=== PATIENT | male | born 1945 | race Caucasian/White ===

== ENCOUNTER → 2017-03-13 09:08 | Outpatient (CLI) | payer MEDICARE, BC ==
[2012-11-15 13:58] VITALS: BMI 32.4
[~2017-03-13 09:08] MED LIST: BAYER CHEWABLE81 MG PO; BUMEX2 MG PO; CELEXA20 MG PO; K-TAB10 MEQ PO; PLAVIX75 MG PO; ULTRAM50 MG PO
== END | disposition home or self-care (01) ==
LOC: D.CT 09:08
DX: I71.4 Abdominal aortic aneurysm, without rupture (principal)

== ENCOUNTER → 2017-04-27 11:01 | Outpatient (CLI) | payer MEDICARE, BC ==
[2012-11-15 13:58] VITALS: BMI 32.4
== END | disposition home or self-care (01) ==
LOC: D.CT 11:01
DX: R31.9 Hematuria, unspecified (principal)

== ENCOUNTER 2017-09-24 18:57 | Emergency (ER) | payer MEDICARE ==
[2012-11-15 13:58] VITALS: BMI 32.4
[2017-09-24 19:28] LABS: BASOPHILS 0.3 % (0-2); EOSINOPHILS 0.8 % (0-7); HEMATOCRIT 46.3 % (42.0-54.0); HEMOGLOBIN 15.7 g/dL (13.5-17.5); IMMATURE GRANULOCYTES 0.7 % (0-5); LYMPHOCYTES 16.7 % (15-50); MCH 30.3 pg (26.0-34.0); MCHC 33.9 g/dL (31.0-37.0); MCV 89.2 fL (80.0-100.0); MEAN PLATELET VOLUME 10.1 fL (7.4-10.4); MONOCYTES 11.6 % (2-11); NEUTROPHILS 69.9 % (40-80); RBC 5.19 10x6/uL (4.20-6.10); RDW 12.8 % (11.5-14.5); WBC 9.9 10x3/uL (4.8-10.8)
[2017-09-24 19:29] LABS: PLATELET COUNT 243 10x3/uL (130-400)
[2017-09-24 19:44] LABS: ALBUMIN 3.6 g/dL (3.4-5.0); ANION GAP 15.2 mmol/L (8-16); BILIRUBIN - TOTAL 0.26 mg/dL (0.2-1.3); CALCIUM 9.4 mg/dL (8.5-10.1); CARBON DIOXIDE 27.8 mmol/L (21.0-32.0); CREATININE - SERUM 1.3 mg/dL (0.6-1.3); PROTEIN - SERUM 7.8 g/dL (6.4-8.2)
== END 2017-09-24 20:54 | disposition home or self-care (01) ==
LOC: D.ER 18:57
PROVIDERS: Emergency Medicine
DX: R53.1 Weakness (principal); Z86.73 Personal history of transient ischemic attack (TIA), and cerebral infarction without residual deficits; I44.4 Left anterior fascicular block

== ENCOUNTER 2018-01-24 09:53 | Observation (INO) | payer MEDICARE, BC ==
[~2018-01-24] VITALS: Ht 182.9 cm; Wt 108.4 kg
[2018-01-24] VITALS (9 sets, daily range): BP systolic 104–156; BP diastolic 48–85; BMI 32.3
[2018-01-24 10:34] LABS: BASOPHILS 0.2 % (0-2); EOSINOPHILS 0.4 % (0-7); HEMATOCRIT 46.1 % (42.0-54.0); HEMOGLOBIN 15.6 g/dL (13.5-17.5); IMMATURE GRANULOCYTES 0.9 % (0-5); LYMPHOCYTES 14.5 % (15-50); MCH 29.8 pg (26.0-34.0); MCHC 33.8 g/dL (31.0-37.0); MEAN PLATELET VOLUME 10.2 fL (7.4-10.4); MONOCYTES 7.9 % (2-11); NEUTROPHILS 76.1 % (40-80); PLATELET COUNT 234 10x3/uL (130-400); RBC 5.24 10x6/uL (4.20-6.10); RDW 13.2 % (11.5-14.5); WBC 11.3 10x3/uL (4.8-10.8)
[2018-01-24 10:48] LABS: ALBUMIN 3.6 g/dL (3.4-5.0); ALKALINE PHOSPHATASE 112 U/L (46-116); ALT (SGPT) 23 U/L (10-68); BILIRUBIN - TOTAL 0.55 mg/dL (0.2-1.3); CALC OSMOLALITY 277 mosm/kg (275-300); CARBON DIOXIDE 25.6 mmol/L (21.0-32.0); CHLORIDE - SERUM 99 mmol/L (98-107); GLUCOSE 151 mg/dL (74-106); POTASSIUM - SERUM 3.7 mmol/L (3.5-5.1); PROTEIN - SERUM 7.9 g/dL (6.4-8.2); SODIUM 137 mmol/L (136-145); UREA NITROGEN 16 mg/dL (7-18); eGFR NON AFRICAN AMERICAN 78 mL/min (90-120)
[2018-01-24 11:01] LABS: AMYLASE - SERUM 54 U/L (25-115); CREATINE KINASE 60 UL (21-232); LIPASE 91 U/L (73-393); TROPONIN-I < 0.017 ng/mL (0.000-0.060)
[2018-01-25 04:00] VITALS: BP 113/61
[2018-01-25 06:15] LABS: BASOPHILS 0.1 % (0-2); EOSINOPHILS 0 % (0-7); HEMATOCRIT 42.2 % (42.0-54.0); HEMOGLOBIN 14.4 g/dL (13.5-17.5); IMMATURE GRANULOCYTES 0.3 % (0-5); LYMPHOCYTES 7.8 % (15-50); MCH 30.3 pg (26.0-34.0); MCHC 34.1 g/dL (31.0-37.0); MCV 88.7 fL (80.0-100.0); MEAN PLATELET VOLUME 10.3 fL (7.4-10.4); MONOCYTES 7.8 % (2-11); PLATELET COUNT 237 10x3/uL (130-400); RBC 4.76 10x6/uL (4.20-6.10); RDW 13.1 % (11.5-14.5); WBC 13.1 10x3/uL (4.8-10.8)
[2018-01-25 07:05] LABS: CALC OSMOLALITY 281 mosm/kg (275-300); CALCIUM 8.9 mg/dL (8.5-10.1); CARBON DIOXIDE 28.1 mmol/L (21.0-32.0); CHLORIDE - SERUM 103 mmol/L (98-107); CREATININE - SERUM 0.9 mg/dL (0.6-1.3); GLUCOSE 133 mg/dL (74-106); POTASSIUM - SERUM 3.8 mmol/L (3.5-5.1); SODIUM 140 mmol/L (136-145); UREA NITROGEN 14 mg/dL (7-18); eGFR NON AFRICAN AMERICAN 88 mL/min (90-120)
[2018-01-25 08:04] VITALS: BP 131/59
[2018-01-25 08:05] VITALS: BP 123/70; BP 130/73; BP 131/59
[2018-01-25 10:33] VITALS: Ht 182.9 cm; Wt 108.4 kg
[2018-01-25 17:13] VITALS: BP 124/55
[2018-01-25] MEDS ORDERED: ZOFRAN4 MG PO (17:34)
== END 2018-01-25 18:28 | disposition home or self-care (01) ==
LOC: D.ER 09:53 → D.M2 14:18 → OBSVTIME 14:18 → D.EDHOLD 14:18 → D.M2 20:45
PROVIDERS: Emergency Medicine; Family Medicine
DX: R00.1 Bradycardia, unspecified (principal); R11.2 Nausea with vomiting, unspecified; R53.1 Weakness

== ENCOUNTER → 2018-03-06 08:26 | Outpatient (CLI) | payer MEDICARE, BC ==
[2018-01-25 10:33] VITALS: BMI 32.4
[~2018-03-06 08:26] MED LIST changes: +ZOFRAN4 MG PO
== END | disposition home or self-care (01) ==
LOC: D.CT 08:26
DX: I71.4 Abdominal aortic aneurysm, without rupture (principal)

== ENCOUNTER → 2019-03-08 11:33 | Outpatient (CLI) | payer MEDICARE, BC ==
[2018-01-25 10:33] VITALS: BMI 32.4
== END ==
LOC: D.CT 11:33
PROVIDERS: ATTEND Internal Medicine Cardiovascular Disease
DX: I71.4 Abdominal aortic aneurysm, without rupture (principal)

== ENCOUNTER → 2019-03-19 08:44 | Outpatient (CLI) | payer MEDICARE, BC ==
[2018-01-25 10:33] VITALS: BMI 32.4
== END | disposition home or self-care (01) ==
LOC: D.CT 08:44
PROVIDERS: ATTEND Family Medicine
DX: R91.1 Solitary pulmonary nodule (principal)

== ENCOUNTER 2019-03-27 07:11 | Outpatient (CLI) | payer MEDICARE, BC ==
[~2019-03-27] VITALS: Ht 182.9 cm; Wt 112.7 kg
[2019-03-27 07:43] LABS: BASOPHILS 0.4 % (0-2); EOSINOPHILS 0.8 % (0-7); HEMOGLOBIN 14.5 g/dL (13.5-17.5); IMMATURE GRANULOCYTES 0.7 % (0-5); LYMPHOCYTES 15.7 % (15-50); MCH 28.9 pg (26.0-34.0); MCHC 32.2 g/dL (31.0-37.0); MCV 89.8 fL (80.0-100.0); MEAN PLATELET VOLUME 10.6 fL (7.4-10.4); MONOCYTES 12.7 % (2-11); NEUTROPHILS 69.7 % (40-80); PLATELET COUNT 265 10x3/uL (130-400); RBC 5.01 10x6/uL (4.20-6.10); RDW 13.8 % (11.5-14.5); WBC 9.6 10x3/uL (4.8-10.8)
[2019-03-27 07:45] LABS: APTT 29.8 SECONDS (22.8-39.4); CALC OSMOLALITY 280 mosm/kg (275-300); CARBON DIOXIDE 28.9 mmol/L (21.0-32.0); CHLORIDE - SERUM 104 mmol/L (98-107); GLUCOSE 99 mg/dL (74-106); INR 1.04 (0.85-1.17); POTASSIUM - SERUM 4.3 mmol/L (3.5-5.1); PROTIME 13.1 SECONDS (11.6-15.0); SODIUM 140 mmol/L (136-145); UREA NITROGEN 18 mg/dL (7-18); eGFR NON AFRICAN AMERICAN 77 mL/min (90-120)
[2019-03-27 08:12] VITALS: BP 152/85; Ht 182.9 cm; Wt 112.7 kg
--- NOTE | 2019-03-27 10:57 | NUR ---
1050 SEE POST PROCEDURE CHECKLIST FOR VITAL SIGN TRENDS. EXTRA BLANKET FOR WARMTH.
--- NOTE | 2019-03-27 11:09 | NUR ---
1105 AROUSED WITH V.S. CHECK AND WOUND CHECK. NO HEMATOMA
--- NOTE | 2019-03-27 15:08 | NUR ---
1250 ROUNDS BY TONG CHONG'S RELEASE WHEN TIME.
== END 2019-03-27 14:40 | disposition home or self-care (01) ==
LOC: D.CT 07:11
PROVIDERS: Radiology Diagnostic Radiology; ATTEND Internal Medicine Cardiovascular Disease
DX: R91.1 Solitary pulmonary nodule (principal)

== ENCOUNTER 2019-03-27 17:34 | Inpatient (IN) | payer MEDICARE, BC ==
[~2019-03-27] VITALS: Ht 182.9 cm; Wt 103.2 kg
--- NOTE | ~2019-03-27 | HEMODYNAMI ---
PATIENT:BRISEIDA NOGUEIRA MEDICAL RECORD: [id number] : 41 [facility] KyleFannieCV02 ADMISSION DATE: 03/27/19 Generatedon:04/01/201912:40 Patient name: BRISEIDA NOGUEIRA Patient #: [id number] : 1945 Date of study: 04/01/2019 Page: Of Hemodynamic Procedure Report Patient Data Patient Demographics Procedure consent was obtained First Name: BRISEIDA Gender: Male Last Name: MIRLANDE : 1945 Middle Initial: GORDON Age: 73 year(s) Patient #: [id number] Race: SSN: [id number] Additional ID: [id number] Contact details Address: [address] [place] [address] State: [place] City: [place] Zip code: [address] Past Medical History Allergies: No known allergies Admission Admission Data Admission Date: 03/27/2019 Admission Time: 21:23 Arrival Date: 03/27/2019 Arrival Time: 21:23 Admit Source: Emergency Insurance Payor: Medicare, department Private health insurance Room #: D.CV02 [facility] #: [id number] Height (in.): 72.05 BSA: 2.41 (m2) Height (cm.): 183 BMI: 36.13 (kg/m2) Weight (lbs.): 266.76 Weight (kg.): 121 Lab Results Lab Result Date: 04/01/2019 Lab Result Time: 0:00 Biochemistry Name Units Result Min Max BUN mg/dl 38 --(----)-* 7 18 Creatinine mg/dl 1.3 --(---*)-- 0.6 1.3 eGFR ml/min 57 *-(----)-- 90 120 NONAFRICAN CBC Name Units Result Min Max Hemoglobin g/dl 7.8 *-(----)-- 13.5 17.5 Procedure Procedure Types Cath Procedure Diagnostic Procedure [facility] w/Coronaries Sedation Charges Moderate Sedation up to 30 minutes PCI Procedure AMI/SVG/DISBURSING AGENT PTCA or Stent AMI-BMS/RICH Initial Procedure Description Procedure Date Procedure Date: 04/01/2019 Procedure Start Time: 12:08 Procedure End Time: 12:34 Procedure Staff Name Function Francisco Morrow MD Performing Physician Lorraine Maravilla RT Monitor Tracy Soto RT Scrub Meron Schmitt RN Nurse Procedure Data Cath Procedure Fluoroscopy Diagnostic fluoroscopy Total fluoroscopy Time: 0 time: 0 min min Diagnostic fluoroscopy Total fluoroscopy dose: dose: 2577 mGy 2577 mGy Contrast Material Contrast Material Type Amount (ml) Isovue 300 150 Entry Location Entry Primary Successful Side Size Upsize Upsize Entry Closure Wong ccessful Closure Location (Fr) 1 (Fr) 2 (Fr) Remarks Device Remarks Radial Right 6 Fr Mechanical artery Short Compression Estimated blood loss: 5 ml Diagnostic catheters Device Type Used For End Catheter Placement DIAGNOSTIC Kirkwood 110cm 5 Multi-vessel Fr catheter ([id number]) Angiography Procedure Complications No complications Procedure Medications Medication Administration Route Dosage Oxygen 100 Lidocaine 2% added to field 20 Heparin Flush Bag added to field 2 bags (1000units/500ml NS) 0.9% NaCl I.V. Diprivan 1% I.V. 20 mcg/kg/min (Propofol) Neosynephrine I.V. drip 0.3 mcg/kg/min (20mg/250ml D5W) unlisted medication I.V. drip 15 Heparin Bolus I.V. 4000 units Integrilin (Bolus I.V. 10.2 ml 2mg/ml) Plavix 600 mg Hemodynamics Rest BSA: 2.41 (m2) HGB: 7.8 (g/dl) O2 Consumption: Estimated: 285.64 (ml/min) O2 Con sumption indexed: Estimated:118.52 (ml/min/m) Heart Rate: 79 (bpm) Pressure Samples Time Site Value (mmHg) Purpose Heart Use Rate(bpm) 12:10 LV 86/26,47 Snapshot 87 Snapshots Pre Cath Intra NCS Post Cath Vital Signs Time Heart Resp SPO2 NIBP (mmHg) Rhythm Pain Sedation Rate (ipm) (%) Status Level (bpm) 11:58:38 86 23 99 114/77(105) NSR 0 (11) 3(A) , No pain 12:02:46 88 23 98 118/75(91) NSR 0 (11) 3(A) , No pain 12:07:00 83 22 97 115/68(89) NSR 0 (11) 3(A) , No pain 12:11:01 84 23 96 102/72(79) NSR 0 (11) 3(A) , No pain 12:15:07 82 24 96 118/69(85) NSR 0 (11) 3(A) , No pain 12:19:19 87 23 98 117/71(88) NSR 0 (11) 3(A) , No pain 12:23:27 89 21 98 124/83(100) NSR 0 (11) 3(A) , No pain 12:27:31 89 24 97 117/77(89) NSR 0 (11) 3(A) , No pain 12:31:37 91 24 97 125/89(106) NSR 0 (11) 3(A) , No pain Medications Time Medication Route Dose Verified Delivered Reason N otes Effectiveness by by 11:58:52 Oxygen vent 100% FiO2 Francisco Chance for low 02 sats Cristhian Schmitt RN 11:58:57 Lidocaine 2% added 20ml vial Francisco Singh for local to Cristhian Morrow MD anesthetic field 11:59:07 Heparin Flush added 2 bags Francisco Singh used for Bag to Cristhian Morrow MD procedure (1000units/500ml field NS) 11:59:24 Diprivan 1% I.V. 20 Francisco Meron for sedation i nfusing (Propofol) mcg/kg/min Cristhian Schmitt upon RN arrival to 11:59:24 0.9% NaCl I.V. kvo Francisco Glynna used for Cristhian Schmitt agricultural commodities grader 12:02:43 Neosynephrine I.V. 0.3 Francisco Meron Per physician i nfusing (20mg/250ml D5W) drip mcg/kg/min Cristhian Schmitt upon RN arrival to 12:03:19 Sodium phosphate I.V. 15 mmol Francisco Chance Per physician i nfusing drip Cristhian Schmitt upon RN arrival to 12:15:35 Heparin Bolus I.V. 4000 units Francisco Chance for v erified Cristhian Schmitt anticoagulation with Dr. ANABEL Morrow 12:15:50 Integrilin I.V. 10.2 ml Francisco stallings (Bolus 2mg/ml) Cristhian Schmitt antiplatelet RN therapy 12:16:04 Plavix NGT 600 mg Francisco Schmitt antiplatelet RN therapy Procedure Log Time Note 11:32:54 Meron Schmitt RN sent for patient. Start room use. 11:42:40 Diagnostic Cath Status : Elective 11:43:01 Time tracking: Regular hours (M-F 7:00 - 5:00) 11:43:07 Plan of Care:Hemodynamics will remain stable., Cardiac rhythm will remain stable., Comfort level will be maintained., Respiratory function will remain adequate., Patient/ family verbilizes understanding of procedure., Procedure tolerated without complication., Recovers from procedure without complications.. 11:47:22 Informed consent obtained and on chart 11:48:39 Admit Source: Emergency department 11:48:44 Arrival Date: 03/27/2019 9:23:00 PM 11:49:08 Insurance Payor : Private health insurance, Medicare 11:49:16 Patient Height : 72.05 inches 11:49:21 Patient Weight : 266.76 lbs 11:50:53 Lab Result : eGFR NONAFRICAN 57 ml/min 11:50:53 Lab Result : Hemoglobin 7.8 g/dl 11:50:53 Lab Result : BUN 38 mg/dl 11:50:53 Lab Result : Creatinine 1.3 mg/dl 11:51:03 Patient received from CVICU to [facility] 2 On ventilator. Tansferred to table in Supine position. 11:51:04 Warm blankets applied, and seema hugger turned on for patient comfort. 11:51:04 Correct patient and procedure confirmed by team. 11:51:05 ECG and BP/O2 sat monitors applied to patient. 11:56:32 Full Disclosure recording started 11:57:32 Vital chart was started 11:57:33 Baseline sample Acquired. 11:57:41 Rhythm: sinus rhythm 11:57:45 H&P Date Dictated: 04/01/2019 New H&P dictated by physician.. 11:57:46 Pre-procedure instructions explained to patient. 11:57:46 Pre-op teaching completed and patient verbalized understanding. 11:57:50 Family in waiting room. 11:57:52 Patient NPO since Midnight. 11:57:58 Patient allergic to No known allergies 11:58:32 PATIENT HAS NOT HAD PLAVIX SINCE THE 11:58:52 Oxygen 100% FiO2 vent was administered by Meron Schmitt RN; for low 02 sats; Verbal order read back and verified. 11:58:57 Lidocaine 2% 20ml vial added to field was administered by Francisco Morrow MD; for local anesthetic; Verbal order read back and verified. 11:59:02 Patient diabetic? No. 11:59:06 Previous problem with sedation/anesthesia? No ? 11:59:07 Heparin Flush Bag (1000units/500ml NS) 2 bags added to field was administered by Francisco Morrow MD; used for procedure; Verbal order read back and verified. 11:59:20 Snore? Unknown 11:59:21 Sleep apnea? Unknown 11:59:23 Deviated septum? Unknown 11:59:24 Diprivan 1% (Propofol) 20 mcg/kg/min I.V. was administered by Meron Schmitt RN; for sedation; infusing upon arrival to Verbal order read back and verified. 11:59:24 0.9% NaCl kvo I.V. was administered by Meron Schmitt RN; used for procedure; Verbal order read back and verified. 11:59:24 Opens mouth fully? Unknown 11:59:26 Sticks out tongue? Unknown 11:59:28 Airway obstruction? Unknown ? 11:59:33 Dentures? No ? 11:59:48 PT. INTUBATED. UNABLE TO ASK QUESTIONS 12:00:03 Modified Edu's test Ulnar < 7 seconds 12:00:12 Patient pain scale 0/10 ?. 12:00:25 IV patent on arrival in right IJ with 0.9% NaCl at [facility]. 12:00:27 Lab results completed and on chart. 12:00:33 Stress Test: no; N/A ? 12:00:40 Right Radial & Right Groin area was prepped with chlora-prep and draped in sterile fashion 12:00:41 Alarms reviewed by R. N. 12:00:42 Sharps counted by scrub and verified by R.N. 12:01:18 Risk of Mortality: 19 12:01:21 Risk of blood transfusion: 54.6 12:01:25 Risk of SAMI: 21 12:01:36 3a) 45-59 Moderately reduced kidney function. 12:01:55 Maximum allowable contrast dose (3.7 X eGFR X 0.75)158\ ml. 12:02:37 Physician arrived 12:02:37 --------ALL STOP TIME OUT------ 12:02:38 Final Timeout: patient, procedure, and site verified with staff and physician. All members of the team are in agreement. 12:02:40 Right Radial & Right Groin site verified by team. 12:02:43 Neosynephrine (20mg/250ml D5W) 0.3 mcg/kg/min I.V. drip was administered by Meron Schmitt RN; Per physician; infusing upon arrival to Verbal order read back and verified. 12:02:43 Fire Safety Assessment: A--An alcohol-based skin anteseptic being used preoperatively., C--Open oxygen or nitrous oxide is being used., D--An ESU, laser, or fiber-optic light is being used. 12:02:46 Physical assessment completed. ASA score P 2 - A patient with mild systemic disease as per Francisco Morrow MD. 12:02:50 Sedation plan: IV Moderate Sedation Medication:Versed, Fentanyl 12:03:19 Sodium phosphate 15 mmol I.V. drip was administered by Meron Schmitt RN; Per physician; infusing upon arrival to Verbal order read back and verified. 12:05:22 Use device set Radial Dx or PCI 12:05:24 ACIST Syringe (16306) opened to sterile field. 12:05:24 Medline Cath Pack ([id number]) opened to sterile field. 12:05:24 Bag Decanter (2002S) opened to sterile field. 12:05:25 ACIST Hand Control (66640) opened to sterile field. 12:05:26 ACIST Manifold (39687) opened to sterile field. 12:05:27 Tegaderm 4 x 4 (5886W) opened to sterile field. 12:05:28 EMERALD Guide Wire (778-617) opened to sterile field. 12:05:29 SHEATH 6FR RAIN (0434208) opened to sterile field. 12:05:38 Pt arrives to room #2 intubated and sedated via propofol drip. Pt unresponsive to stimuli. Multiple drips from CVICU infusing (see med list). VSS. 12:06:39 Procedure started. 12:08:42 Local anesthetic to right radial artery with Lidocaine 2% by Francisco Morrow MD.INITIAL ACCESS ONLY 12:09:22 A 6 Fr Short sheath was inserted into the Right Radial artery 12:09:43 A DIAGNOSTIC Kirkwood 110cm 5 Fr catheter (742335) was advanced over the wire and used for Multi-vessel Angiography. 12:10:18 Zero performed for pressure channel P1 12:10:56 LV hemodynamics recorded. 12:10:57 LV gram done using MANNING 12:11:05 Injector settings: Ml/sec: 5, Volume: 15, 12:11:13 EF : 30 % 12:11:33 LCA angiography performed. 12:11:37 Injector settings: Ml/sec: 3, Volume: 6, 12:12:23 GUIDE 6FR XBLAD 3.5 catheter ([id number]) opened to sterile field. 12:12:24 CHOICE PT Extra Support 182cm wire ([id number]) opened to sterile field. 12:12:26 INFLATOR Merit BasixCompak (FK5257) opened to sterile field. 12:12:39 Catheter removed. 12:13:32 GUIDE 6FR AR 2.0 catheter ([id number]) opened to sterile field. 12:15:23 ACCDominant side:Right 12:15:35 Heparin Bolus 4000 units I.V. was administered by Meron Schmitt RN; for anticoagulation; verified with Dr. Morrow Verbal order read back and verified. 12:15:46 6 Fr AR 2 guide catheter was inserted over the wire 12:15:50 Integrilin (Bolus 2mg/ml) 10.2 ml I.V. was administered by Meron Schmitt RN; for antiplatelet therapy; Verbal order read back and verified. 12:15:53 CHOICE PT wire advanced. 12:15:55 Wire advanced across lesion. 12:16:04 Plavix 600 mg NGT was administered by Meron Schmitt RN; for antiplatelet therapy; Verbal order read back and verified. 12:16:23 Pre PCI Site: [place] mRCA has 95% stenosis. 12:16:26 ACC Pre-intervention MARCELO Flow is 2. 12:16:39 Inflate balloon Inflation number: 1 A EUPHORA 3.5 x 30 Balloon ([id number]) was prepped and advanced across the Prox RCA 95, then inflated to 14 MARIELA for 0:10 (min:sec) 0. 12:16:57 Inflation number: 2 The EUPHORA 3.5 x 30 Balloon ([id number]) was reinflated across the Prox RCA 0, to 19 MARIELA for 0:10 (min:sec) . 12:18:56 Balloon removed over the wire. 12:19:42 Place stent Inflation Number: 1 A COBRA RX 3.5 X 18 Stent was prepped and advanced across the Mid RCA 95. The stent was deployed at 13 MARIELA for 0:10 (min:sec) 0. 12:20:25 Stent catheter was removed intact over wire. 12:20:33 Wire removed. 12:20:34 Guide catheter removed. 12:20:44 Post PCI Site: [place] mRCA has 0% stenosis. 12:20:54 Pre PCI Site: [place] pLAD has 95% stenosis. 12:20:54 6 Fr XBLAD 3.5 guide catheter was inserted over the wire 12:21:52 CHOICEPT wire advanced. 12:23:58 Place stent Inflation Number: 1 A COBRA RX 3.0 X 15 Stent was prepped and advanced across the Prox LAD 95. The stent was deployed at 13 MARIELA for 0:10 (min:sec) 0. 12:24:08 Inflation number: 2 The stent balloon was then re-inflated across the Prox LAD 0 to 19 MARIELA for 0:10 (min:sec) . 12:25:16 Stent catheter was removed intact over wire. 12:25:49 Place stent Inflation Number: 1 A COBRA RX 3.0 X 08 Stent was prepped and advanced across the Mid LAD 95. The stent was deployed at 13 MARIELA for 0:10 (min:sec) 0. 12:28:29 Wire redirected to LCX. 12:28:30 Pre PCI Site: [place] mCirc has 90% stenosis. 12:28:31 Inflation number: 1 The stent balloon was then re-inflated across the Mid CX 90 to 13 MARIELA for 0:10 (min:sec) 0. 12:28:35 Stent catheter was removed intact over wire. 12:29:03 Place stent Inflation Number: 2 A COBRA RX 2.5 X 18 Stent was prepped and advanced across the Mid CX 90. The stent was deployed at 15 MARIELA for 0:10 (min:sec) 0. 12::41 Stent catheter was removed intact over wire. 12::42 Wire removed. 12::42 Guide catheter removed. 12:29:53 ZEPHYR REGULAR TR BAND (832413) opened to sterile field. 12:30:05 Sheath removed intact; hemostasis achieved with Mechanical Compression to the Right Radial artery. 12:31:59 [place] band inflated with 8cc of air. 12:32:25 ACC Post-intervention MARCELO Flow is 3. 12:32:34 ACT drawn and resulted at 252 seconds. (normal therapeutic range 180-240 seconds). 12:32:35 Procedure ended.(Physican Out) 12:32:52 Fluoroscopy time 00.00 minutes. 12:32:56 Fluoroscopy dose: 2577 mGy 12:32:56 Flurop Dose total: 2577 12:33:05 Dose Area Product 055565 mGy/cm. 12:33:46 Contrast amount:Isovue 300 150ml. 12:33:51 Maximum allowable dose exceeded? Yes. 12:33:52 Sharps counted by scrub and verified by R.N. 12:33:54 Insertion/operative site no bleeding no hematoma. 12:33:59 Post right radial artery:stable 12:34:00 Post Procedure Pulses reassessed and unchanged 12:34:03 Post procedure rhythm: unchanged. 12:34:05 Estimated blood loss: 5 ml 12:34:07 Post procedure instruction explained to patient.Patient verbalizes understanding. 12:34:07 Patient needs reinforcement of post procedure teaching. 12:34:37 Procedure type changed to Cath procedure, Diagnostic procedure, LHC, [place] w/Coronaries, Sedation Charges, Moderate Sedation up to 30 minutes, PCI procedure, AMI/SVG/DISBURSING AGENT PTCA or Stent, AMI-BMS/RICH Initial 12:34:39 Procedure and supply charges have been captured, reviewed, submitted and are correct. 12:34:43 Procedure Complication : No complications 12:34:45 Vital chart was stopped 12:34:50 [place] Findings: MVD- PCI performed (see procedure note) 12:34:52 Operative report dictated upon procedure completion. 12:34:52 See physician's report for complete and final results. 12:34:55 Report given to CVICU. 12:34:57 Patient transfered to CVICU with Stretcher. 12:34:59 Procedure ended. 12:34:59 Full Disclosure recording stopped 12:35:08 ACC-PCI Only Patient was given prescriptions, or instructed by Francisco Morrow MD to start/continue the following medications upon discharge: Plavix 12:35:10 End room use (Document Last) Intervention Summary Intervention Notes Time ActionType Lesion and Equipment Action# Pressure Duration Attributes Used 12:16:39 Inflate Prox RCA EUPHORA 1 14 00:10 balloon 3.5 x 30 Balloon ([id number]) 12:16:57 Reinflate Prox RCA EUPHORA 2 19 00:10 balloon 3.5 x 30 Balloon ([id number]) 12:19:42 Place stent Mid RCA COBRA RX 1 13 00:10 3.5 X 18 Stent 12:23:58 Place stent Prox LAD COBRA RX 1 13 00:10 3.0 X 15 Stent 12:24:08 Reinflate Prox LAD COBRA RX 2 19 00:10 stent 3.0 X 15 balloon Stent 12:25:49 Place stent Mid LAD COBRA RX 1 13 00:10 3.0 X 08 Stent 12:28:31 Reinflate Mid CX COBRA RX 1 13 00:10 stent 3.0 X 08 balloon Stent 12:29:03 Place stent Mid CX COBRA RX 2 15 00:10 2.5 X 18 Stent Device Usage Item Name Manufacture Quantity Catalog Number Hospital Part Current Minimal Lot# / Charge Number Stock Stock Serial# Code ACIST Syringe Acist 1 13922 838786 347821 742693 20 (56197) Medical Systems Inc Medline Cath Medline 1 [id number] 024502 63238 361970 5 Pack ([id number]) Bag Decanter Microtek 1 2001S 273474 56957 341158 5 () Medical Inc. ACIST Hand Acist 1 66650 210104 450610 896962 5 Control Medical (92290) Systems Inc ACIST Manifold Acist 1 01052 984171 568102 688276 5 (27325) Medical Systems Inc Tegaderm 4 x 4 3M 1 1626W 606135 733974 198885 5 (1626W) EMERALD Guide Cardinal 1 502-721 603265 797653 290982 5 Wire (105-097) Health SHEATH 6FR Cardinal 1 9179172 890460 1760141 316370 5 RAIN (8895174) Health DIAGNOSTIC Terumo 1 84-3775 950114 467452 619786 5 Kirkwood 110cm 5 Fr catheter (122674) GUIDE 6FR Cardinal 1 [id number] 230653 978903 815451 10 XBLAD 3.5 Health catheter ([id number]) CHOICE PT Sanders 1 [id number] 052534 210709 189999 5 Extra Support Scientific 182cm wire ([id number]) INFLATOR Merit Merit 1 ES0586 894179 591869 639992 15 Crayon Data Medical (HR6164) GUIDE 6FR AR Medtronic 1 [id number] 191044 45513 180717 1 2.0 catheter ([id number]) EUPHORA 3.5 x Medtronic 1 [id number] 851743 322086 219482 5 [id number] 30 Balloon ([id number]) COBRA RX 3.5 X Celonova 1 370-56-33149 233525 [id number] 6923527 4 9 [id number] 18 stent Biosciences ([id number]) COBRA RX 3.0 X Celonova 1 647-12-86683 092756 820862828 227356 6 [id number] 15 stent Biosciences (283-31-20703) COBRA RX 3.0 X Celonova 1 978-29-75481 730763 423863963 5820726 7 [id number] 08 stent Biosciences ([id number]) COBRA RX 2.5 X Celonova 1 749-23-66334 080823 490071674 3791394 7 0 [id number] 18 stent Biosciences (630-86-94217) ZEPHYR REGULAR Cardinal 1 862086 739348 1839596 375891 5 [facility] Jawbone (832722) Signature Audit [place] Stage Time Signature Unsigned Intra-Procedure 04/01/2019 Lorraine Maravilla 12:37:09 PM RT(R) Intra-Procedure 04/01/2019 Meron Schmitt 12:37:30 PM RN Intra-Procedure 04/01/2019 Francisco Morrow 12:40:04 PM Signatures Performing Physician : Signature : Francisco Morrow MD Date : Time : Monitor : Lorriane Taiwo RT Signature : Date : Time : Nurse : Meron Oskar RN Signature : Date : Time : [address] [place] [address]
[2019-03-27 18:06] LABS: BASOPHILS 0.2 % (0-2); EOSINOPHILS 0.4 % (0-7); HEMATOCRIT 38.7 % (42.0-54.0); HEMOGLOBIN 12.4 g/dL (13.5-17.5); IMMATURE GRANULOCYTES 0.5 % (0-5); LYMPHOCYTES 15.1 % (15-50); MCH 28.8 pg (26.0-34.0); MCV 89.8 fL (80.0-100.0); MEAN PLATELET VOLUME 10.3 fL (7.4-10.4); MONOCYTES 8.8 % (2-11); PLATELET COUNT 234 10x3/uL (130-400); RBC 4.31 10x6/uL (4.20-6.10); RDW 13.5 % (11.5-14.5)
[2019-03-27 18:07] LABS: WBC 13.3 10x3/uL (4.8-10.8)
[2019-03-27 18:15] LABS: APTT 26.4 SECONDS (22.8-39.4); INR 1.15 (0.85-1.17); PROTIME 14.2 SECONDS (11.6-15.0)
[2019-03-27 18:17] LABS: CALC OSMOLALITY 281 mosm/kg (275-300); CALCIUM 8.6 mg/dL (8.5-10.1); CHLORIDE - SERUM 105 mmol/L (98-107); CREATININE - SERUM 1.1 mg/dL (0.6-1.3); GLUCOSE 122 mg/dL (74-106); SODIUM 139 mmol/L (136-145); UREA NITROGEN 22 mg/dL (7-18); eGFR NON AFRICAN AMERICAN 69 mL/min (90-120)
[2019-03-27 18:32] LABS: ALBUMIN 2.9 g/dL (3.4-5.0); ALKALINE PHOSPHATASE 97 U/L (46-116); ALT (SGPT) 20 U/L (10-68); BILIRUBIN - TOTAL 0.45 mg/dL (0.2-1.3); CKMB 0.5 U/L (0.0-3.6); CREATINE KINASE 48 UL (21-232); PRO BNP 1098 pg/mL (0-450); PROTEIN - SERUM 6.7 g/dL (6.4-8.2)
[2019-03-27 18:47] LABS: TROPONIN-I < 0.017 ng/mL (0.000-0.060)
--- NOTE | 2019-03-27 20:09 | NUR ---
PT TO RADIOLOGY FOR CT
[2019-03-27 22:22] VITALS: BP 118/58
--- NOTE | 2019-03-27 23:26 | NUR ---
PATIENT ARRIVED TO ROOM 2104 @2300. PATIENT AAOX4, TRANSFERED WITH MINIMAL ASSIST TO BED FROM STRETCHER. PT HAS PIV TO LT AC WITH NS INFUSING @50ML/HR. IV PATENT, DRSG C/D/I. PT VSS, NO S/S OF DISTRESS OBSERVED, RR EVEN AND UNLABORED ON ROOM AIR. MED REC, QUICK START, SUICIDE SCREENING, ADULT HX COMPLETED. CL IN REACH, BED LOCKED AND LOWERED.
--- NOTE | 2019-03-27 23:41 | NUR ---
PATIENT HAD BIOPSY TO HIS RIGHT LUNG EARLIER TODAY. DRSG OVER INCISION SITE IS C/D/I.
[2019-03-28] VITALS (16 sets, daily range): BP systolic 106–138; BP diastolic 40–75; BMI 26.6
--- NOTE | 2019-03-28 | NUR ---
NO TELEMETRY'S AVAILABLE.
--- NOTE | 2019-03-28 01:15 | NUR ---
PATIENT O2 SAT 92% CALLED RESPIRATORY FOR TREATMENT. RESPIRATORY AT BEDSIDE NOW.
[2019-03-28 05:54] LABS: BASOPHILS 0.2 % (0-2); EOSINOPHILS 0.3 % (0-7); HEMATOCRIT 34.5 % (42.0-54.0); IMMATURE GRANULOCYTES 0.6 % (0-5); LYMPHOCYTES 13.6 % (15-50); MCH 28.5 pg (26.0-34.0); MCHC 31.9 g/dL (31.0-37.0); MCV 89.4 fL (80.0-100.0); MEAN PLATELET VOLUME 10.4 fL (7.4-10.4); MONOCYTES 13.6 % (2-11); NEUTROPHILS 71.7 % (40-80); PLATELET COUNT 213 10x3/uL (130-400); RBC 3.86 10x6/uL (4.20-6.10); RDW 13.7 % (11.5-14.5); WBC 10.9 10x3/uL (4.8-10.8)
[2019-03-28 06:25] LABS: ALBUMIN 2.8 g/dL (3.4-5.0); ALKALINE PHOSPHATASE 88 U/L (46-116); ALT (SGPT) 16 U/L (10-68); BILIRUBIN - TOTAL 0.23 mg/dL (0.2-1.3); CALC OSMOLALITY 285 mosm/kg (275-300); CALCIUM 8.1 mg/dL (8.5-10.1); CARBON DIOXIDE 24.9 mmol/L (21.0-32.0); CHLORIDE - SERUM 107 mmol/L (98-107); GLUCOSE 148 mg/dL (74-106); MAGNESIUM - SERUM 2.1 mg/dL (1.8-2.4); PHOSPHOROUS 3.3 mg/dL (2.5-4.9); POTASSIUM - SERUM 3.7 mmol/L (3.5-5.1); PROTEIN - SERUM 5.8 g/dL (6.4-8.2); SODIUM 141 mmol/L (136-145); UREA NITROGEN 17 mg/dL (7-18); eGFR NON AFRICAN AMERICAN 77 mL/min (90-120)
--- NOTE | 2019-03-28 08:19 | NUR ---
EDUCATED PATIENT ON NEW NPO STATUS. EXPLAINED THAT THE DOCTOR WOULD COME AND TALK WITH HIM ABOUT UPCOMING POSSIBLE PROCEDURES. DR. BROWN WALKED INTO ROOM AT THIS TIME. CALL LIGHT IS IN REACH AND BED IS IN LOW POSITION. PATIENT DENIES ANY NEEDS AT THIS TIME
--- NOTE | 2019-03-28 09:50 | NUR ---
ARRIVED TO UNIT AT THIS TIME. VSS. NO ACUTE DISTRESS NOTED. PT ALERT AND ORIENTED. ARRIVED VIA BED ACCOMPANIED BY HOSPITAL STAFF AND FAMILY. WILL CONTINUE PLAN OF CARE.
--- NOTE | 2019-03-28 11:07 | NUR ---
UP IN BED VISITING WITH FAMILY AT THIS TIME. NO ACUTE DISTRESS NOTED. VSS. WILL CONTINUE PLAN OF CARE.
--- NOTE | 2019-03-28 13:22 | NUR ---
NOTED CBC SCHEDULED FOR 1130, NO LABS SEEN FOR THIS LAB DRAW. CALLED LAB TO SEE WHY NO NEW RESULTS ARE SHOWN AND IT STATED THAT LABS WERE CANCELED DURING TRANSFER TO CVICU. NOTIFIED LAB THIS ORDER ABSOLUTELY DID NOT NEED TO BE CANCELED AND NEEDED A STAT DRAW NOW TO SEE PTS LAB RESULTS. STATED WILL BE BY SHORTLY TO DRAW LABS. WILL NOTIFY PHYSICIAN.
[2019-03-28 13:37] LABS: BASOPHILS 0.2 % (0-2); EOSINOPHILS 0.4 % (0-7); HEMATOCRIT 34.1 % (42.0-54.0); HEMOGLOBIN 10.8 g/dL (13.5-17.5); IMMATURE GRANULOCYTES 0.4 % (0-5); LYMPHOCYTES 13.7 % (15-50); MCH 28.4 pg (26.0-34.0); MCHC 31.7 g/dL (31.0-37.0); MCV 89.7 fL (80.0-100.0); MONOCYTES 11.8 % (2-11); NEUTROPHILS 73.5 % (40-80); PLATELET COUNT 208 10x3/uL (130-400); RDW 13.8 % (11.5-14.5); WBC 12.3 10x3/uL (4.8-10.8)
[2019-03-28 14:30] LABS: ALBUMIN 2.9 g/dL (3.4-5.0); ALKALINE PHOSPHATASE 84 U/L (46-116); ALT (SGPT) 18 U/L (10-68); BILIRUBIN - TOTAL 0.39 mg/dL (0.2-1.3); CALC OSMOLALITY 285 mosm/kg (275-300); CARBON DIOXIDE 25.5 mmol/L (21.0-32.0); CHLORIDE - SERUM 109 mmol/L (98-107); CREATININE - SERUM 0.9 mg/dL (0.6-1.3); PROTEIN - SERUM 6.1 g/dL (6.4-8.2); SODIUM 143 mmol/L (136-145); UREA NITROGEN 15 mg/dL (7-18); eGFR NON AFRICAN AMERICAN 87 mL/min (90-120)
[2019-03-28 14:31] LABS: GLUCOSE 95 mg/dL (74-106)
[2019-03-28 14:48] LABS: APTT 26.7 SECONDS (22.8-39.4); INR 1.09 (0.85-1.17); PROTIME 13.6 SECONDS (11.6-15.0)
[2019-03-28 15:50] LABS: PLT FUNCT.(P2Y12) PLAVIX 258 PRU (194-418)
--- NOTE | 2019-03-28 15:58 | NUR ---
PER DR BROWN, "SPOKE WITH IR AND THEY ARE NOT PLANNING ON DOING ANYTHING WITH PATIENT TODAY SINCE HE IS STABLE." NOTIFIED PHYSICIAN THAT DR LEO IS PLANNING TO DO A PROCEDURE TOMORROW. NO NEW ORDERS RECIEVED. VSS. WILL CONTINUE PLAN OF CARE.
--- NOTE | 2019-03-28 17:08 | NUR ---
NO ACUTE DISTRESS NOTED. VSS. CALL LIGHT IN REACH. WILL CONTINUE PLAN OF CARE.
--- NOTE | 2019-03-28 19:17 | NUR ---
BEDSIDE SHIFT REPORT GIVEN BY DEPARTING RN. LAYING IN BED ASLEEP. DENIES ANY NEEDS AT THIS TIME. VSS ON 3L NC.
[2019-03-28 19:30] LABS: BASOPHILS 0.2 % (0-2); EOSINOPHILS 0.6 % (0-7); HEMATOCRIT 33.9 % (42.0-54.0); HEMOGLOBIN 10.7 g/dL (13.5-17.5); IMMATURE GRANULOCYTES 0.8 % (0-5); LYMPHOCYTES 17.5 % (15-50); MCH 28.4 pg (26.0-34.0); MCHC 31.6 g/dL (31.0-37.0); MCV 89.9 fL (80.0-100.0); MEAN PLATELET VOLUME 10.2 fL (7.4-10.4); MONOCYTES 13.8 % (2-11); NEUTROPHILS 67.1 % (40-80); PLATELET COUNT 206 10x3/uL (130-400); RBC 3.77 10x6/uL (4.20-6.10); RDW 13.7 % (11.5-14.5); WBC 12.5 10x3/uL (4.8-10.8)
--- NOTE | 2019-03-28 20:41 | NUR ---
PHONED FOR PT UPDATE. PASSWORD GIVEN. ALL QUESTIONS ANSWERED.
--- NOTE | 2019-03-28 21:21 | NUR ---
ASSESSMENT COMPLETE. AAOX4. PERRLA. DENIES ANY NEEDS. C/O CHEST PAIN WHILE COUGHING RATING A 6/10. LEFT AC PIV INFUSING MD ORDERED MEDS. SAFETY MEASURES IN PLACE. CBIR.
[2019-03-28 22:46] LABS: APPEARANCE CLEAR (CLEAR); BILIRUBIN NEGATIVE (NEGATIVE); COLOR YELLOW (YELLOW); GLUCOSE NEGATIVE (NEGATIVE); KETONE NEGATIVE (NEGATIVE); NITRITE NEGATIVE (NEGATIVE); PROTEIN NEGATIVE (NEGATIVE); UROBILINOGEN NORMAL (NORMAL)
--- NOTE | 2019-03-28 23:52 | NUR ---
ASSESSMENT COMPLETE. PT LAYING IN BED ASLEEP SHOWING NO SS OF DISTRESS. SAFETY MEASURES IN PLACE. CBIR.
[2019-03-29] VITALS (13 sets, daily range): BP systolic 98–160; BP diastolic 49–88
--- NOTE | 2019-03-29 01:29 | NUR ---
VSS. REPOSITIONS SELF. NPO AT MIDNIGHT.
--- NOTE | 2019-03-29 02:46 | NUR ---
REASSESSMENT COMPLETE. NO NEW CHANGES NOTED IN PT CONDITION. VSS.
[2019-03-29 06:32] LABS: BASOPHILS 0.3 % (0-2); EOSINOPHILS 0.5 % (0-7); HEMATOCRIT 35.2 % (42.0-54.0); HEMOGLOBIN 11.2 g/dL (13.5-17.5); IMMATURE GRANULOCYTES 0.7 % (0-5); LYMPHOCYTES 12.1 % (15-50); MCH 28.5 pg (26.0-34.0); MCHC 31.8 g/dL (31.0-37.0); MCV 89.6 fL (80.0-100.0); MEAN PLATELET VOLUME 10.1 fL (7.4-10.4); MONOCYTES 11.7 % (2-11); NEUTROPHILS 74.7 % (40-80); PLATELET COUNT 215 10x3/uL (130-400); RBC 3.93 10x6/uL (4.20-6.10); RDW 13.7 % (11.5-14.5); WBC 13.3 10x3/uL (4.8-10.8)
[2019-03-29 06:45] LABS: CALC OSMOLALITY 279 mosm/kg (275-300); CALCIUM 8.2 mg/dL (8.5-10.1); CARBON DIOXIDE 25.8 mmol/L (21.0-32.0); CHLORIDE - SERUM 107 mmol/L (98-107); CREATININE - SERUM 0.9 mg/dL (0.6-1.3); GLUCOSE 108 mg/dL (74-106); POTASSIUM - SERUM 3.9 mmol/L (3.5-5.1); SODIUM 140 mmol/L (136-145); UREA NITROGEN 12 mg/dL (7-18); eGFR NON AFRICAN AMERICAN 87 mL/min (90-120)
--- NOTE | 2019-03-29 14:42 | NUR ---
0715-RECIEVED AWAKE AND ALERT-NPO MAINTAINED- AND ADDITIONAL FAMILY MEMBERS AT BEDSIDE-L PERIPHERAL AC N/S-50-SR WITH PVC ON MONITOR-DIRECTED TO FAMILY AND PT REMOVAL OF WATCH AND [place] BAND REQUIRED-RELUCTANT TO REMOVE BAND-REMOVAL OF DENTURES -REMOVAL OF UNDERWEAR- 929-EXPLAINED TO PT NEED FOR HEBICLENS BATH IN BED DUE TO HYPOTENSIVE EPISODE-NOTE SAFE FOR SHOWER-PT STATED WILL HURT HIS CHEST TOO MUCH EVERY TIME HE TURNS-INCREASED PAIN WITH TURN TO RIGHT-NOTIFIED CV NURSE-MORPHINE 1 MG IVP GIVEN ONE TIME TO ASSIST WITH PAIN CONTROL OF HEBICLENS BATH 1210-PT TO OR -FAMILY AT BEDSDIE-STRESSED TO OR NURSE- REQUESTS CALL WHEN SURGERY STARTS-TELEPHONE NUMBER PROVIDED
--- NOTE | 2019-03-29 18:03 | NUR ---
1750- REC'D TO ROOM. ALL MONITORING EQUIPMENT ATTACHED AND ALARMS SET.
--- NOTE | 2019-03-29 18:55 | NUR ---
ABG'S BY RT AND CALLED TO DR LEO AND CALLED TO DR MCMULLEN ORDERED. VAPOTHERM ORDERED.
[2019-03-29 18:57] LABS: HEMATOCRIT 30.9 % (42.0-54.0); HEMOGLOBIN 9.5 g/dL (13.5-17.5); MCH 28.4 pg (26.0-34.0); MCHC 30.7 g/dL (31.0-37.0); MCV 92.2 fL (80.0-100.0); MEAN PLATELET VOLUME 10.2 fL (7.4-10.4); PLATELET COUNT 231 10x3/uL (130-400); RBC 3.35 10x6/uL (4.20-6.10); RDW 13.9 % (11.5-14.5)
--- NOTE | 2019-03-29 19:07 | NUR ---
UNABLE TO REDIRECT. PT PULLING AT LINES. UNABLE TO REDIRECT. PT ATTEMPTING TO GET OOB. BUE SOFT WRIST RESTRAINTS ORDERED AND APPLIED.
[2019-03-29 19:32] LABS: EOSINOPHILS 1 % (0-7); LYMPHOCYTES 10 % (15-50); NEUTROPHILS 89 % (40-80); PLATELET ESTIMATE NORMAL
--- NOTE | 2019-03-29 19:42 | NUR ---
DR. MCMULLEN AT BEDSIDE. ORDERS RECEIVED, VERIFIED, AND READ BACK. PT CONTINUES TO THRASH IN BED, ATTEMPTING TO PULL OUT CHEST TUBES. RESTRAINTS REMAIN ON.
--- NOTE | 2019-03-29 20:00 | NUR ---
AT BEDSIDE. PT RESTLESS AND AGITATED. UPDATE GIVEN. ALL QUESTIONS ANSWERED. WILL CONTINUE TO LOWER SENSORY AND ENVIRONMENTAL STIMULI.
[2019-03-30] VITALS (22 sets, daily range): BP systolic 85–162; BP diastolic 51–78
--- NOTE | 2019-03-30 00:19 | NUR ---
RESTRAINTS REMOVED. PT ORIENTED X4. VERBALIZES IMPORTANCE OF MEDICAL EQUIPMENT AND TUBES. VERBALIZES HE WILL NOT PULL AT ANYTHING. NURSE AT BEDSIDE.
--- NOTE | 2019-03-30 01:09 | NUR ---
LINENS CHANGED, GOWN CHANGED. REPOSITIONED. VSS.
--- NOTE | 2019-03-30 01:52 | NUR ---
REPOSITIONED FOR COMFORT. RESTRAINTS REMAIN OFF. VSS.
--- NOTE | 2019-03-30 03:08 | NUR ---
REASSESSMENT COMPLETE. VSS. SEE FS FOR DETAILS. REPOSITIONED. TOLERATED WELL. AAOX4. SAFETY MEASURES IN PLACE. CBIR.
[2019-03-30 06:46] LABS: BASOPHILS 0.1 % (0-2); EOSINOPHILS 0 % (0-7); HEMATOCRIT 28.5 % (42.0-54.0); HEMOGLOBIN 8.9 g/dL (13.5-17.5); IMMATURE GRANULOCYTES 0.6 % (0-5); LYMPHOCYTES 3.9 % (15-50); MCH 28.4 pg (26.0-34.0); MCHC 31.2 g/dL (31.0-37.0); MCV 91.1 fL (80.0-100.0); MEAN PLATELET VOLUME 10.2 fL (7.4-10.4); MONOCYTES 14.2 % (2-11); NEUTROPHILS 81.2 % (40-80); PLATELET COUNT 230 10x3/uL (130-400); RBC 3.13 10x6/uL (4.20-6.10); RDW 13.8 % (11.5-14.5); WBC 19.4 10x3/uL (4.8-10.8)
[2019-03-30 07:02] LABS: ALBUMIN 2.4 g/dL (3.4-5.0); BILIRUBIN - TOTAL 0.4 mg/dL (0.2-1.3); CALCIUM 7.4 mg/dL (8.5-10.1); CARBON DIOXIDE 26.1 mmol/L (21.0-32.0); MAGNESIUM - SERUM 2.1 mg/dL (1.8-2.4); PHOSPHOROUS 4.4 mg/dL (2.5-4.9)
[2019-03-30 07:03] LABS: CREATININE - SERUM 1.2 mg/dL (0.6-1.3)
[2019-03-30 07:04] LABS: ANION GAP 11.8 mmol/L (8-16); POTASSIUM - SERUM 4.9 mmol/L (3.5-5.1)
--- NOTE | 2019-03-30 09:55 | OP ---
PATIENT NAME: BRISEIDA NOGUEIRA MEDICAL RECORD: [id number] :41 LOCATION:DC[facility]LO DFannieCV02 ADMISSION DATE:03/27/19 SURGEON: FEDERICO LEO MD DATE OF OPERATION: 03/29/2019 SURGEON: Federico Leo MD MATHEMATICS IMPROVEMENT TEACHER: None. PROCEDURE PERFORMED: Right thoracoscopy, decortication, evacuation of hemothorax, lysis of intrapleural adhesions, and bronchoscopy. PREOPERATIVE DIAGNOSIS: Hemothorax after right lung biopsy. POSTOPERATIVE DIAGNOSIS: Hemothorax after right lung biopsy. ANESTHESIA: Double lumen, general endotracheal anesthesia. ESTIMATED BLOOD LOSS: Minimal. SPECIMENS: None. COMPLICATIONS: None. CONDITION: Stable. DISPOSITION: ICU. OPERATIVE FINDINGS: 1. One liter of serosanguineous fluid. 2. Significant amount of clot posteriorly, no obvious injury site identified in the lung. 3. Chronic adhesions to the upper lobe taken down sharply and with electrocautery. Good reexpansion of the lung and no air leak after the procedure. OPERATIVE INDICATION: Hemothorax and syncope following lung, biopsy report negative for malignancy. DESCRIPTION OF PROCEDURE: The patient was brought to the operating suite. Double lumen general endotracheal anesthesia was obtained, the patient turned into left lateral decubitus position with appropriate padding. Incision was made in the right chest to allow passage of the scope and the lung was still inflated. Therefore, bronchoscope was again inserted. The tube was repositioned by placing a slightly deeper. After reducing the bronchial cuff and then after inflating it again there was good deflation of the right lung allowing thoracoscopy to proceed. A more anterior working port was made. Scope was moved between the 2 ports visualizing the lung suctioning out the fluid and using a suction decorator mannequin to break up the dense extensive clot about 200 cc of clot were removed, irrigated until clear. Some adhesions at the posterior part of the upper lobe were taken down sharply. There were also some adhesions at the diaphragm more medially that did not appear to affect the lung reinflated well. Chest tubes were placed through separate stab sites and brought 1 to the apex and one posteriorly. OPERATIVE REPORT [id number] BRISEIDA NOGUEIRA Wounds were closed after placement Marcaine with muscle layer, subcutaneous subcuticular and Dermabond. Anesthesia reversed. The patient to ICU in stable condition. TRANSINT:[id number] Voice Confirmation ID: [id number] DOCUMENT ID: [id number] FEDERICO LEO MD at 0955 CC: [id number] DICTATION DATE: 03/29/19 172 FUR SORTER: 03/29/19 1816 ADM IN [facility] [address] [id number]
--- NOTE | 2019-03-30 19:00 | NUR ---
SHIFT ASSESSMENT COMPLETE. PT IS YELLING OUT IN PAIN, REPOSITIONED FOR COMFORT. INSTRUCTED HIM TO TAKE DEEP BREATHS IN THROUGH HIS NOSE, SAT HIM UP IN BED, TCDB EXERCISES DONE, CLEAR/WHITE SPUTUM NOTED. PT IS NOW CALM, A&O X3, DISORIENTED TO TIME. RR EVEN AND UNLABORED, VAPOTHERM ON @ 80%, O2 SAT 94%. CLEAR BREATH SOUNDS THROUGHOUT UPPER LOBES, DIMINISHED AT THE BASES. ORAL MUCOSA MOIST, NO DENTURES IN AT THIS TIME. S1S2 AUDIBLE, HR 112 SINUS TACH SHOWING ON MONITOR. R IJ CVL S/L, SWAB CAPS IN PLACE. RT CHEST TUBES X2 H2O SEAL, SEROUS FLUID NOTED. ABD LARGE, NONTENDER TO TOUCH, BS ACTIVE X4. SCDS/SHIV HOSE ON AND FUNCTIONING. RADIAL AND PEDAL PULSES PALP. CALL LIGHT IN REACH, BED IN LOWEST POSITION. WILL CONT TO MONITOR CLOSELY, TIGHT PARAMETERS SET ON ICU MONITORS.
--- NOTE | 2019-03-30 19:00 | NUR ---
1330-PHYSCIAL THERAPY AT [facility]-ASSISTED PT TO CHAIR-POOR ASSISTANCE FROM PT -KEPT EYES CLOSED -NOT ABLE TO FOLLOW ANY DIRECTION-NOT RECOMMENDED SINGLE ASSIST OR INDEPENDENT-DAUGHTER JAMARCUS AGREED TO SIT WITH PT- 1430-R IJ SALINE LOCKED-L AC D/C-TIP INTACT-L RADIAL ROLANDO D/C'D-AGUERO CATH D/C'D TIP INTACT 1645RETURNED TO BED WITH ASSIST OF 2-POOR COOPERATION AND UNDERSTANDING FROM PT NOT ABLE TO FOLLOW DIRECTIONS-VERY ARGUMENTATIVE AND GESTURAL AGGRESSION- 170-FAMILY MEMBERS AT BEDSIDE-PT APPEARS INCREASED AGITATION 1739-NORCO 5 GIVEN FOR C/O HEADACHE AND MIDSTERNAL 1814-PT CRYING STATED PAIN EXRCUCIATING TO MIDSTERNUM-CALL DR LEOOZIRN-BASESMT-WLET 12/15-NORCO AT 1730-CURRENTLY CRYING-CT OFF SUCTION-NO AIR LEAK--LOCATES PAIN TO R OF MID STERNUM-STRONG COUGH-VAPOTHERM 60%-DESATS TO 85 WHEN REMOVES-ORDER RECIEVED AND NOTED 1839-PT APPEARS CALMER-VERBALLY AGRESSIVE
--- NOTE | 2019-03-30 20:30 | NUR ---
FAMILY AT BEDSIDE. PT IS IN PAIN, PRN NORCO ADMIN PER EMAR, COMPLETE LINEN CHANGE PROVIDED, REPOSITIONED FOR COMFORT. NO FURTHER NEEDS AT THIS TIME. PM MEDS GIVEN WITHOUT COMPLICATION. CALL LIGHT IN REACH, BED IN LOWEST POSITION. WILL CONT WITH POC.
--- NOTE | 2019-03-30 22:00 | NUR ---
PT'S O2 SAT DECREASED TO 80%, CALLED RT, RT ON WAY TO SET UP BIPAP. BIPAP ON, 18/11 @ 80%, O2 SAT 95% AT THIS TIME. PROVIDED EDUCATION ON THE MACHINE AND WHY HE IS USING IT AT THIS TIME. NO FURTHER QUESTIONS. WILL CONT TO MONITOR CLOSELY.
--- NOTE | 2019-03-30 22:26 | NUR ---
CHANGED SUPPLEMENTAL 02 DEVICE TO BILEVEL / FIO2 80% RR 19 UNLABORED SP02 CURRENTLY 95% AND HOLDING C/D BS TO ANTERIOR JORGE AUS. ZERO CYANOSIS EQUALATERAL EXCURSION NO IMMEDIATE S/S RESP DISTRESS WILL MONITOR NANCY APLLICATION WELL
--- NOTE | 2019-03-30 23:00 | NUR ---
REASSESSMENT COMPLETE. NO CHANGES IN PT CONDITION. VSS. CALL LIGHT IN REACH, CHEST TUBES X2, H2O SEAL, SEROUS FLUID NOTED. BIPAP ON, 18/11 @ 80%. SEE FLOWSHEET FOR FURTHER DETAILS. WILL CONT WITH POC.
[2019-03-31] VITALS (30 sets, daily range): BP systolic 78–142; BP diastolic 48–84
--- NOTE | 2019-03-31 00:28 | NUR ---
PT DESAT TO 88%, RT AT BEDSIDE. INCREASED O2 ON BIPAP TO 100%. PT O2 SAT IS NOW 93-95%. WILL CONT CLOSE MONITORING.
--- NOTE | 2019-03-31 01:00 | NUR ---
PT RESTING WITH NO SIGNS OF ACUTE DISTRESS NOTED. VSS. CALL LIGHT IN REACH, WILL CONT TO MONITOR CLOSELY.
--- NOTE | 2019-03-31 03:00 | NUR ---
REASSESSMENT COMPLETE. S1S2 AUDIBLE, HR 97 NSR WITH PVCs SEEN ON MONITOR. REPOSITIONED FOR COMFORT. BIPAP ON, 18/11 @ 100%. NO FURTHER CHANGES AT THIS POINT. NO ACUTE DISTRESS AT THIS TIME. SEE FLOWSHEET FOR FURTHER DETAILS. WILL CONT WITH POC.
--- NOTE | 2019-03-31 04:15 | NUR ---
ENCOURAGED PT TO VOID. HE STATED THAT HE COULD NOT VOID. BLADDER SCANNER STATES 351 ML. WILL CONT TO ENCOURAGE VOID.
--- NOTE | 2019-03-31 05:00 | NUR ---
CHG AND COMPLETE LINEN CHANGE PROVIDED. DRESSING CHANGED TO RT CHEST TUBES. PT TOLERATED WELL. VSS. WILL CONT WITH POC.
[2019-03-31 06:34] LABS: BASOPHILS 0.1 % (0-2); EOSINOPHILS 0.1 % (0-7); HEMATOCRIT 28.1 % (42.0-54.0); HEMOGLOBIN 8.8 g/dL (13.5-17.5); IMMATURE GRANULOCYTES 0.9 % (0-5); LYMPHOCYTES 5.7 % (15-50); MCH 28.8 pg (26.0-34.0); MCHC 31.3 g/dL (31.0-37.0); MCV 91.8 fL (80.0-100.0); MEAN PLATELET VOLUME 10.5 fL (7.4-10.4); MONOCYTES 12.6 % (2-11); NEUTROPHILS 80.6 % (40-80); PLATELET COUNT 226 10x3/uL (130-400); RBC 3.06 10x6/uL (4.20-6.10); RDW 13.8 % (11.5-14.5); WBC 19.8 10x3/uL (4.8-10.8)
--- NOTE | 2019-03-31 06:34 | NUR ---
UPDATED DR. LEO R/T CHANGE IN XRAY ORDER DUE TO CHANGE IN RESP STATUS AND INCREASED FIO2 ON BIPAP. NO NEW ORDERS AT THIS TIME.
[2019-03-31 06:48] LABS: ALBUMIN 2.3 g/dL (3.4-5.0); ANION GAP 11.2 mmol/L (8-16); BILIRUBIN - TOTAL 0.35 mg/dL (0.2-1.3); CALCIUM 7.8 mg/dL (8.5-10.1); CARBON DIOXIDE 26.3 mmol/L (21.0-32.0); CREATININE - SERUM 1.5 mg/dL (0.6-1.3); MAGNESIUM - SERUM 2.2 mg/dL (1.8-2.4); PHOSPHOROUS 3.8 mg/dL (2.5-4.9); POTASSIUM - SERUM 4.5 mmol/L (3.5-5.1)
--- NOTE | 2019-03-31 10:10 | NUR ---
0959-DR LEO AT [facility]-SPOKE WITH PT -FAMILY NOT PRESENT AT THIS TIME-PT LETHARGIC-ORDERS RECIEVED- 1000-ECHO DONE 1300-DAUGHTER AT BEDSIDE-STATING PT NEEDS PAIN MEDICINE-MORPHINE RETAIL LOAN ORIGINATOR D/C'D-NORCO 5MG PO GIVEN-PT ALERT CONVERSES EASILY 1330-PHYSICAL THERAPY AT BEDSIDE
--- NOTE | 2019-03-31 10:58 | MORECARE ---
CASE MANAGEMENT DISCHARGE SUMMARY PATIENT: BRISEIDA NOGUEIRA GORDON UNIT: [id number] ADM DATE: 03/27/19 AGE: 73 : 43 SEX: M [facility] AUTHOR: EDUAR HERNANDEZ PHYSICIAN: REFERRING PHYSICIAN: CARLA CLEVELAND MD DATE OF SERVICE: 03/31/19 Discharge Plan Patient Name: BRISEIDA NOGUEIRA [facility] [facility] 1945 Planned Disposition: Anticipated Discharge Date: Discharge Date: Expected LOS: Initial Reviewer: [email or web address] Initial Review Date: 03/31/2019 Generated: 03/31/19 11:57 am Patient Name: BRISEIDA NOGUEIRA Page [phone] at 1058 All edits/amendments must be made on the electronic document DICTATION DATE: 03/31/19 1057 MOTOR EQUIPMENT SERGEANT: KEYSHAWN 03/31/19 1057 RPT#: [id number] DC DATE: STATUS: ADM IN [facility] [address] [place] [address] END OF REPORT
--- NOTE | 2019-03-31 11:04 | MORECARE ---
CASE MANAGEMENT DISCHARGE SUMMARY PATIENT: BRISEIDA NOGUEIRA GORDON UNIT: [id number] ADM DATE: 03/27/19 AGE: 73 : 43 SEX: M ROOM[facility]BED: [facility] AUTHOR: MARYDOC PHYSICIAN: REFERRING PHYSICIAN: CARLA CLEVELAND MD DATE OF SERVICE: 03/31/19 Discharge Plan Patient Name: BRISEIDA NOGUEIRA Facility: [facility]:[place] : 1945 Planned Disposition: Anticipated Discharge Date: Discharge Date: Expected LOS: Initial Reviewer: [email or web address] Initial Review Date: 03/31/2019 Generated: 03/31/19 12:04 pm Comments DCP- Discharge Planning Updated by [email or web address]: Nedra Thompson on 03/31/19 10:[address] Patient Name: BRISEIDA NOGUEIRA Admission Status: ER Accout number: [id number] Admission Date: 03-27-2019 : 1945 Admission Diagnosis: Attending: CARLA CLEVELAND Current LOS: 4 Anticipated DC Date: Planned Disposition: Primary Insurance: MEDICARE A & B Discharge Planning Comments: CM MET WITH FAMILY AFTER TALKING WITH ANABEL PEREZ. I SPOKE WITH HIS VANESSA AND OTHER CHILDREN PRESENT. SPOKE WITH THEM ABOUT DC PLANNING/NEEDS. IT EARLY TO TELL AT THIS POINT BUT IS INTERESTED IN HH IF HE IS ABLE AT DISCHARGE. CHOICE LETTER WAS LEFT WITH HER AND SHE WILL LET ME KNOW WHEN SHE DECIDES ON THE COMPANY. IF HE NEEDS O2 OR OTHER DME THE [place] WAS SIGNED FOR [facility] [place]. CM WILL FOLLOW PATIENT NEEDED AND REASSES. Fruit Or Nut Grower: Nedra Thompson DCPIA - Discharge Planning Initial Assessment Updated by [email or web address]: Nedra Thompson on 03/31/19 10:58 am * Is the patient Alert and Oriented? No * PCP KEVIN * Pharmacy [facility] [address] * Preadmission Environment Home with Family * ADLs Independent * Equipment None * List name and contact numbers for known caregivers / representatives who currently or will assist patient after discharge: SYLVIA DOMINGUEZ, * Community resources currently utilized None * Additional services required to return to the preadmission environment? Yes * Has this patient been hospitalized within the prior 30 days at any hospital? Yes Last DP export: 03/31/19 9:58 Patient Name: BRISEIDA NOGUEIRA Page [phone] at 1104 All edits/amendments must be made on the electronic document DICTATION DATE: 03/31/191103 DRILLER OPERATOR: KEYSHAWN 03/31/191103 RPT#: [id number] DC DATE: STATUS: ADM IN [facility] [address] [place] [address] END OF REPORT
--- NOTE | 2019-03-31 15:28 | NUR ---
0800-DR LEO AT [facility] -REVIEWED EVENTS OF PREVIOUS SHIFT-BIPAP AT 100% 18/11 TO REMAIN AND REASSESS BY DR MCMULLEN-NOTED R LATERAL CHEST TUBE TO STAIGHT DRAINAGE SEROUS FLUID AND NO AIR LEAK NOTED-RESPIRATION REG AND EVEN PT APPEARS TO BE ASLEEP 0830-SON AND DAUGHTER IN LAW AT [facility]-PT AWAKE AND ALERT-AGITATED -REQUESTING MASK OFF-NEEDS WATER-RR INCREASED TO 39-O2 SAT DECREASED TO 82 %-REQUESTING PAIN MEDICINE-DR LEO AT [facility] SPOKE WITH PT AND FAMILY -STRESSED NO MORE NARCOTICS-RESPIRATORY DRIVE IS BEING EFFECTED-TYLENOL PO ONLY-STRESSED TO LEAVE BIPAP MASK ON AT THIS TIME-NOTED O2 SAT 84%-INCREASED AGITATION/CONFUSION-RR 39-PT -NO UNDERSTANDING NOTED -SON APPEARED TO UNDERSTRAND AND SUPPORTED DR LEO-DAUGHTER IN LAW NO UNDERSTANDING 0900-FAMILY MEMBERS CONTINUE TO ENGAGE PT WITH CONVERSATION-ARGUMENTIVE FROM PT-POOR VENTILATION FROM BIPAP-WITH RR 39-SEAL BROKEN FREQUENTLY BY PT AND FAMILY TO HEAR BETTER -O2 SATS 85-92 RR 36-HR 114-FLUSHED FACIAL-POOR FAMILY COMPLIANCE 1015-DR BROWN IN UNIT-REVIEWED PREVIOUS SHIFT EVENTS-TO CURRENT -STRESSED PT MENTATION -AGGRESSIVE -VOICING PARANOIA-AGITATION WHICH APPEARS STRONGER WITH FAMILY DISTURBANCE -NOTED 4 FAMILY MEMBERS AT THIS TIME-BIOLOGICAL AND STEP CHILDREN-DR BROWN SPOKE WITH PT AND ALL FAMILY MEMBERS-REGARDING CURRENT STATUS PREVIOUS SHIFT -NEED TO LEAVE BIPAP IN PLACE IS. 1045-FAMILY MEMBER AT NURSES DESK AND STATING ONE PARTICULAR FAMILY MEMBER AGITATING PT -STRESSED THAT BEST PLAN TO NOT DISTURB PT AT ALL WHEN ON BIPAP 1150-DR MCMULLEN AT BEDSIDE-FAMILY MEMBERS AT BEDSIDE-NOTED SEVERE AGRESSION AGITATION FROM PT DEMENDING BIPAP OFF-DR MCMULLEN EXPLAINED NEED AT THIS TIME-APPEARED TO UNDERSTAND-DR MCMULLEN LEFT ROOM TO NURSES DESK-FAMILY MEMBER-DAUGHTER LEFT ROOM CALLING OUT HE IS CHOKING-DR MCMULLEN ENTERED ROOM-NOTED PT COUGHING AND VERBALLY STATING I'M CHOKING-FAMILY REQUESTED TO LEAVE RM -DR MCMULLEN REMOVED MASK AND CLEARED OUT ORAL WAY -PLACED ON HIGH IFEOMA 15L-SAT 72%-INCREASED CONFUSION -CYANOTIC TO LIPS-ADDED NON REBREATHER 15L- SAT INCREASED TO 86%-RR 36- 1230-O2 SAT 78%-RR 40-FACIAL [id number]-OYD REBREATHER REMOVED AND BIPAP MASK 100% PLACED -DR MCMULLEN NOTIFIED OF SAME-RR DEC TO 16-PT CALMED-DR MCMULLEN STRESSED TO FAMILY GROUP TO NOT DISTURB PT WHILE ON BIPAP -POOR COMPLIANCE- 1300-FAMILY MEMBERS AT DOORWAY OF -PT SAW SAME-RR INCR TO 36-HR 114-ATTEMPTED TO COMMUNICATE -AGAIN STRESSED TO FAMILY DETRIMENTAL AT THIS TIME-POOR COMPLIANCE-STATED TO OTHER STAFF FEEL LIKE WE ARE MAD AT THEM-STRESSED TO REQUESTS ARE FOR PT BENEFIT-ON PRECIPICE OF INTUBATION AND VENTILATOR-ATTEMPTING TO IMPROVE RESP CONDITIONWIFE VOCALIZES UNDERSTANDING AND AGREEMENT 1450-PT INCONTINENT OF URINE-COMPLETE CARE DONE AND TOLERATED WELL BY PT -RR REMAINED 16-SAT 100%-RESP RX IN PROGRESS-NO AIR LEAK NOTED
--- NOTE | 2019-03-31 18:44 | NUR ---
1715-REMOVED BIPAP MASK FOR NORCOM PO WITH SIP OF WATER-PT NKNOCKED MASK OUT OF HAND-SCREAMED I DO NOT WANT THIS YOU CAN'T MAKE ME WEAR IT -NOTED SAT DECREASED TO 72% OVER 2MIN-HR 45-NON RESPONSIVE-HELD BIPAP TO FACE-RR INCREASED TO 19-HR 120-PT AWAKE AND AGRESSIVE-KNOCKED MASK OF FACE -STRIKING AT NURSE-CALLED FOR ASSISTANCE -SCREAMED I DON'T WANT THIS-SAT DECREASED TO 80%-NON RESPONSIVE-RR 4-HR 50-BIPAP SECURED SAT RETURNED-TO 98%-RESTRAINTS PLACED-VERBALLY AGRESSIVE-AND SRIKING OUT-FAMILY BROUGHT TO [facility] AND INFORMED OF SITUATION DR MCMULLEN /AHMET/KEVIN NOTIFIED 1830-PT INTUBATED BY DR MCMULLEN-SPOKE WITH FAMILY REGARDING STATUS-AND FAMILY IN AGREEABLE-VERSED 3MG IVP GIVEN-DIPRIVAN STARTED AT 5MCG-PORT CXR-SEE RT RECORD REGARDING VENT SETTINGS-FAMILY SPOKE WITH DR BROWN VIA TELEPHONE-QUESTIONS ADDRESSED
--- NOTE | 2019-03-31 21:00 | NUR ---
1900 REPORT RECEIVED CARE ASSUMED ASSESSMENT DONE SEE FLOW SHEET VSS 2100 FAMILY AT BEDSIDE TEACHING PROVIDED. AGUERO PUT IN PLACE USING STERILE TECHNIQUE. RNX2 AT BEDSIDE. VSS WILL CONTINUE TO MONITOR.
[2019-03-31 22:43] LABS: APPEARANCE CLEAR (CLEAR); BILIRUBIN NEGATIVE (NEGATIVE); COLOR YELLOW (YELLOW); GLUCOSE NEGATIVE (NEGATIVE); KETONE SMALL mg/dL (NEGATIVE); NITRITE NEGATIVE (NEGATIVE); PROTEIN NEGATIVE (NEGATIVE); SPECIFIC GRAVITY 1.025 (1.005-1.020); UROBILINOGEN NORMAL (NORMAL)
[2019-03-31 22:44] LABS: BACTERIA FEW /hpf (NEGATIVE); EPITHELIAL CELLS RARE /hpf (0-5); RED CELLS - URINE RARE /hpf (0-5); WHITE CELLS - URINE RARE /hpf (NEGATIVE)
--- NOTE | 2019-03-31 23:00 | NUR ---
REASSESSMENT COMPLETE. SBP DROP NOTED. MILLI STARTED. RT ADJUSTED FIO2 TO 80. VSS WILL CONTINUE TO MONITOR.
[2019-04-01] VITALS (72 sets, daily range): BP systolic 87–116; BP diastolic 47–75
--- NOTE | 2019-04-01 01:00 | NUR ---
PT PULLED OFF CT DRESSING. DRESSING REPLACED. WILL CONTINUE TO MONITOR.
--- NOTE | 2019-04-01 05:00 | NUR ---
0300 REASSESSMENT DONE SEE FLOW SHEET VSS 0500 IO COLLECTED. DAILY WEIGHT COLLECTED VSS
--- NOTE | 2019-04-01 06:22 | NUR ---
DR LEO INFORMED OF PT STATUS. WILL CONTINUE TO MONITOR.
[2019-04-01 06:23] LABS: ALBUMIN 2.1 g/dL (3.4-5.0); ANION GAP 12.4 mmol/L (8-16); BILIRUBIN - TOTAL 0.43 mg/dL (0.2-1.3); CALCIUM 7.9 mg/dL (8.5-10.1); CARBON DIOXIDE 25.1 mmol/L (21.0-32.0); CREATININE - SERUM 1.3 mg/dL (0.6-1.3); MAGNESIUM - SERUM 2.4 mg/dL (1.8-2.4); PHOSPHOROUS 1.9 mg/dL (2.5-4.9); POTASSIUM - SERUM 4.5 mmol/L (3.5-5.1); PROTEIN - SERUM 6.1 g/dL (6.4-8.2)
[2019-04-01 06:43] LABS: BASOPHILS 0 % (0-2); EOSINOPHILS 0 % (0-7); HEMATOCRIT 24.7 % (42.0-54.0); HEMOGLOBIN 7.8 g/dL (13.5-17.5); IMMATURE GRANULOCYTES 0.9 % (0-5); LYMPHOCYTES 2.3 % (15-50); MCH 28.6 pg (26.0-34.0); MCHC 31.6 g/dL (31.0-37.0); MCV 90.5 fL (80.0-100.0); MEAN PLATELET VOLUME 10.5 fL (7.4-10.4); MONOCYTES 10.1 % (2-11); NEUTROPHILS 86.7 % (40-80); PLATELET COUNT 231 10x3/uL (130-400); RBC 2.73 10x6/uL (4.20-6.10); RDW 14.1 % (11.5-14.5); TROPONIN-I 37.717 ng/mL (0.000-0.060); WBC 18.5 10x3/uL (4.8-10.8)
--- NOTE | 2019-04-01 07:28 | NUR ---
DR. BROWN PAGED AT THIS TIME.
--- NOTE | 2019-04-01 07:50 | NUR ---
DR. BROWN SPOKE WITH DR. JACKSON REGARDING CONSULT.
--- NOTE | 2019-04-01 08:07 | NUR ---
PAGED AT THIS TIME TO NOTIFY HIM OF ELEVATED TROPONIN.
--- NOTE | 2019-04-01 08:44 | NUR ---
1ST UNIT OF PRBC'S INITATED AT 0838. PHOSPHORUS BEING REPLACED PER ELECTROLYTE PROTOCOL. NO FAMILY AT BEDSIDE. WILL CONTINUE TO MONITOR.
--- NOTE | 2019-04-01 11:50 | NUR ---
PT TRANSPORTED TO [facility]EL [facility]ATE [facility]SEM[facility]ER. CONSENT FORMS SIGNED AND PLACED IN CHART.
--- NOTE | 2019-04-01 12:31 | NUR ---
Nutrition Follow-up: Pt now intubated/sedated. Diet: NPO Wt: 266# Last BM: 03/26 Labs noted: Glu 145, Ca 7.9, PO4 1.9, AST 709, ALT 439, Alb 2.1 Meds noted: Diprivan Solumedrol -Rec considering nutrition support if unable to wean from vent within 24-48 hrs. -RD following.
--- NOTE | 2019-04-01 13:00 | NUR ---
ARRIVED FROM FIBRE TECHNOLOGIST AT THIS TIME. TR BAND TO RIGHT WRIST. CONNECTED TO ICU MONITORS. VENT A/C 60%FIO2. BP 116/70. HR 86 NORMAL SINUS WIHT OCCASIONAL PVC'S. 1ST UNIT OF PRBC'S FINISHED INFUSING IN FIBRE TECHNOLOGIST. SAFETY MEASURES IN PLACE. WILL CONTINUE TO MONITOR.
--- NOTE | 2019-04-01 13:31 | NUR ---
2ND UNIT OF PRBC'S INFUSING AT THIS TIME PER ORDERS.
--- NOTE | 2019-04-01 15:00 | NUR ---
RESTING COMFORTABLY IN CHAIR. LEGS ELEVATED. EXTRA PILLOW PROVIDED FOR COMFORT. NO ACUTE CHANGES FROM PREVIOUS ASSESSMENT. WILL CONTINUE TO MONITOR.
--- NOTE | 2019-04-01 15:50 | NUR ---
RIJ CVL DRESSING SATURATED AND PEELING OFF. CVL DRESSING CHANGED PER PROTOCOL. STERILE TECHNIQUE USED. PT RESTING COMFORTABLY. WILL CONTINUE TO MONITOR.
--- NOTE | 2019-04-01 16:33 | NUR ---
SECOND UNIT OF PRBC'S FINISHED INFUSING AT THIS TIME.
--- NOTE | 2019-04-01 17:02 | PN ---
PATIENT:BRISEIDA RANGEL MEDICAL RECORD: [id number] LOCATION:[facility] .CV0 ADMISSION DATE: 03/27/19 PROGRESS NOTE DATE OF SERVICE: 04/01/2019 Mr. Rangel remains hypotensive with systolic blood pressures in the 90s. He is having increasing episodes of PVCs. He did sustain a significant myocardial infarction as per the consult done early this morning with troponin being 37. His EKG is with no acute changes; however, with very frequent PVCs. At this time, I have discussed the case with Dr. Crisostomo. We feel that the risk of the acute myocardial infarction outweighs the risk of bleeding. He is receiving 1 unit of blood, a second unit of blood is being set. We cannot do any further medical management secondary to the hypotension, hence we will proceed with coronary angiography. Further care depends upon findings of the angiography. TRANSINT:[id number] Voice Confirmation ID: [id number] DOCUMENT ID: [id number] DORI JACKSON MD at 1702 CC: [id number] DICTATION DATE: 04/01/19 1118 ENGRAVER WOOD: 04/01/19 1535 ADM IN [place] [id number] [place] [address]
--- NOTE | 2019-04-01 17:02 | CN ---
PATIENT NAME:BRISEIDA RANGEL MEDICAL RECORD: [id number] : 41 LOCATION:[facility].CV02 ADMIT DATE: 03/27/19 ACCOUNT: [id number] CONSULTING PHYSICIAN: DORI JACKSON MD REFERRING PHYSICIAN: CARLA CLEVELAND MD DATE OF CONSULTATION: 04/01/2019 CARDIOLOGY CONSULT ADMITTING DIAGNOSES: 1. Myocardial infarction. 2. Coronary artery disease. 3. Previous percutaneous transluminal coronary angioplasty stent. 4. Hypotension after chest needle biopsy with hemothorax. 5. Anemia secondary to hemothorax. HISTORY OF PRESENT ILLNESS: Mr. aRngel is known to us with a past history of coronary artery disease, no cardiac intervention in the last year. He had a pulmonary nodule, underwent needle biopsy. After this, he had hemothorax. After this, he had respiratory failure requiring mechanical intubation. He as well, required surgical evacuation of the hemothorax. He is now on low dose susi. Systolic blood pressures in the 90s, heart rate 80, sinus rhythm, no dysrhythmias other than isolated PVCs. His troponin this morning is 37. He does not have a history of a myocardial infarction. He has a history of cardiac stents, but none as of recent. Echocardiogram was performed on the . This was prior to the increased troponin and prior to surgical evacuation of the hemothorax. At that time, his ejection fraction was 55%. No EKG has been repeated. The EKG on the was with no acute ST-T abnormalities. PHYSICAL EXAMINATION: CONSTITUTIONAL/GENERAL APPEARANCE: Well nourished, well developed, appears stated age. The patient is intubated and sedated. EYES: Lids and conjunctivae noninjected. No discharge. No pallor. ENT: Lips within normal limit. No cyanosis. No pallor. NECK: Carotid arteries, bilateral normal upstroke. No bruits. No thrills. No jugular venous pressure or distention. CERVICAL LYMPH NODES: Nontender. Nonenlarged. THYROID: Not enlarged. No nodules. CARDIOVASCULAR: Precordial exam, nondisplaced. No heaves or pericardial thrills. Rate and rhythm, regular. Heart sounds, normal S1, normal S2. No S3, no gallop, no rub. Systolic murmur, not heard. Diastolic murmur, not heard. RESPIRATORY: Respiratory effort, unlabored. Normal curvature. No thoracic deformity. No chest wall tenderness. Percussion, resonant. Auscultation, clear. No wheezes, no rales, no rhonchi. ABDOMEN: Soft, nondistended, nontender. No abdominal pain, no vomiting and normal appetite. MUSCULOSKELETAL: No joint tenderness, normal gait, normal tone. SKIN: Warm and dry. OVERALL IMPRESSION: Myocardial infarction. His hemoglobin is 7.8, was 8.9 yesterday, decreasing to 8.2, then 7.8 this morning. He is receiving 2 units of blood. It is concerning that he is still significantly anemic and the anemia is still progressing. His surgical intervention was Monday. His creatinine is preserved at 1.3. We will repeat a 12-lead ECG, as well we will repeat the echocardiogram to see discrete wall motion abnormalities and/or change in CONSULT REPORT [id number] BRISEIDA RANGEL ejection fraction after the troponin of 37, but clearly he has had an acute myocardial infarction. It is concerning that he remains hypotensive with the myocardial infarction. We will give him 2 units of blood, reevaluate him hemodynamically. Most likely, we would like a second H&H after the blood approximately 4-6 hours later to make sure this remains stable. His EKG has no acute ST elevation, would prefer to hold off on cardiac catheterization to at least tomorrow to see if his hemoglobin stabilizes and how he does hemodynamically; however, if the EKG does show an acute injury pattern and there are new wall motion abnormalities on the echocardiogram, would favor possible cardiac intervention today, but only after the hemoglobin is replaced. TRANSINT:[id number] Voice Confirmation ID: [id number] DOCUMENT ID: [id number] DORI JACKSON MD at 1702 CC: [id number] DICTATION DATE: 04/01/19 0951 AQUATIC BIOLOGIST: 04/01/19 1030 ADM IN [facility] [address] [place] [address]
--- NOTE | 2019-04-01 17:02 | OP ---
PATIENT NAME: BRISEIDA NOGEUIRA MEDICAL RECORD: [id number] :41 LOCATION:DCARLO D.CV02 ADMISSION DATE:03/27/19 SURGEON: DORI JACKSON MD DATE OF OPERATION: 04/01/2019 PROCEDURES: 1. PTCA stent RCA. 2. PTCA stent LAD. 3. PTCA stent left circumflex. 4. Left heart catheterization. 5. Selective coronary angiography. 6. Left ventriculogram. INDICATION: Acute myocardial infarction. PROCEDURE IN DETAIL: After informed consent was obtained and after detailed explanation of risks, benefits as well as alternative therapies, the patient elected to proceed with angiogram and angioplasty. The right radial area was prepped and draped in normal sterile fashion. Right radial artery was cannulated via modified Seldinger technique with placement of 6-Slovak sheath. All catheters exchanged through this sheath. FINDINGS: Left ventriculogram was performed in standard 30-degree MANNING view, reveals global hypokinesis, ejection fraction is 30%. SELECTIVE CORONARY ANGIOGRAPHY: 1. Left main is with no significant angiographic disease. 2. Left anterior descending has 95% stenosis proximally. 3. Left circumflex has 90% stenosis mid vessel. 4. Right coronary has 95% stenosis in the mid vessel. PTCA STENT OF THE RCA: The stent used was 3.5 x 18 mm Cobra. Result was 0% residual stenosis. PTCA STENT OF THE LAD: She is a 3.0 x 15 and 3.0 x 8, both Cobra stents. Result was 0% residual stenosis. PTCA STENT OF THE LEFT CIRCUMFLEX: The stent used was a 2.5 x 18 mm Cobra. Result was 0% residual stenosis. OVERALL IMPRESSION: Successful percutaneous transluminal PTCA stent RCA, LAD, and left circumflex; all going from 90% to 95% initial stenosis to 0% residual. TRANSINT:[id number] Voice Confirmation ID: [id number] DOCUMENT ID: [id number] DORI JACKSON MD at 1702 CC: [id number] DICTATION DATE: 04/01/19 1236 MILITARY COOK: 04/01/19 1651 [place] [address]
[2019-04-01 18:00] LABS: HEMATOCRIT 27.7 % (42.0-54.0)
--- NOTE | 2019-04-01 23:50 | NUR ---
PATIENT HAD RHYTHM CHANGE TO AFIB AT RATE OF 140'S. DR. RING PAGED AT THIS TIME.
[2019-04-02] VITALS (40 sets, daily range): BP systolic 95–138; BP diastolic 64–77
[2019-04-02 06:36] LABS: BASOPHILS 0.1 % (0-2); EOSINOPHILS 0 % (0-7); HEMATOCRIT 28.6 % (42.0-54.0); HEMOGLOBIN 9.2 g/dL (13.5-17.5); IMMATURE GRANULOCYTES 1.3 % (0-5); LYMPHOCYTES 6.6 % (15-50); MCH 28.3 pg (26.0-34.0); MCHC 32.2 g/dL (31.0-37.0); MEAN PLATELET VOLUME 10.5 fL (7.4-10.4); MONOCYTES 9.5 % (2-11); NEUTROPHILS 82.5 % (40-80); PLATELET COUNT 219 10x3/uL (130-400); RBC 3.25 10x6/uL (4.20-6.10); RDW 15.2 % (11.5-14.5)
[2019-04-02 06:51] LABS: WBC 13.8 10x3/uL (4.8-10.8)
[2019-04-02 07:10] LABS: ALBUMIN 2.2 g/dL (3.4-5.0); ANION GAP 14.4 mmol/L (8-16); BILIRUBIN - TOTAL 0.51 mg/dL (0.2-1.3); CALCIUM 8.2 mg/dL (8.5-10.1); CARBON DIOXIDE 23.1 mmol/L (21.0-32.0); CREATININE - SERUM 1.4 mg/dL (0.6-1.3); POTASSIUM - SERUM 4.5 mmol/L (3.5-5.1); PROTEIN - SERUM 6.6 g/dL (6.4-8.2)
[2019-04-02 07:14] LABS: TROPONIN-I 22.149 ng/mL (0.000-0.060)
--- NOTE | 2019-04-02 08:49 | EC ---
PATIENT:BRISEIDA NOGUEIRA DATE OF SERVICE: 03/27/19 SEX: M MEDICAL RECORD: [id number] DATE OF : 43 LOCATION:[place] [address] AGE OF PATIENT: 73 ADMISSION DATE: 03/27/19 REFERRING PHYSICIAN: INTERPRETING PHYSICIAN: WANDA YOUNG MD ECHOCARDIOGRAM REPORT ECHO CHARGES 4 ECHO COMPLETE Date: 03/30/19 CLINICAL DIAGNOSIS: SOB/HEMOTHORAX ECHOCARDIOGRAPHIC MEASUREMENTS (adult normal given) AC root (d.<3.7cm) 3.8 cm LV Septum d (<1.2 cm> 1.4 cm Valve Excursion 1.4 cm LV Septum (systole) 1.5 cm Left Atria (s.<4.0cm> 4.2 cm LVPW d(<1.2cm) 1.5 cm RV (d.<2.3cm) 3.6 cm LVPW (sytole) 1.7 cm LV diastole(<5.6CM) 5.7 cm MV E-F(>70mm/sec) cm LV systole 4.3 cm LVOT Diameter 2.2 cm MV exc.(>10mm) 1.2 cm Est.ejection fraction (50-75%) % DOPPLER: LVIT cm/sec A 107 cm/sec E 88.0 cm/sec LA cm/sec RVSP 13 mmHg LVOT 77 cm/sec AOP1/2T m/s Asc. Ao 131 cm/sec RVOT cm/sec RA cm/sec PA cm/sec AV Gradient Peak 6.86 mmHg AV Mean 3.68 mmHg AV Area 2.6 cm MV Gradient Peak 5.12 mmHg MV Mean 1.82 mmHg MV Area cm COMMENTS: School Nurse: 2 RICK FREDERICK Joint Machine Operator: 3 Dr. Suarez TAPE# PACS Pericardial Effusion N DATE OF SERVICE: Adequate 2D, color flow, spectral Doppler, and M-mode. LVH is present. LV internal dimension is normal. Wall motion is normal. EF is greater than or equal to 55%. Aortic valve is sclerotic. There is no evidence of stenosis by Doppler interrogation. Left atrium is mildly dilated at 4.2 cm. Mitral valve shows no prolapse. Mild MR. Right-sided chambers are grossly normal. Mild TR. TRANSINT:[id number] Voice Confirmation ID: [id number] DOCUMENT ID: [id number] ECHOCARDIOGRAM REPORT [id number] BRISEIDA NOGUEIRA,WANDA Carmen MD at 0849 CC: [id number] DICTATION DATE: 03/31/19 1017 POLISHER BALANCE SCREWHEAD: 03/31/19 1130 ADM IN [place] [id number] [place] [id number]
[2019-04-02 09:32] LABS: INR 1.35 (0.85-1.17); PROTIME 16.1 SECONDS (11.6-15.0)
--- NOTE | 2019-04-02 10:36 | NUR ---
0700 PT RECIEVED SEDATED ON VENT, R IJ CVL DRESSING CDI, SEE IV FLOWSHEET, R LAT CHEST SITES CDI WITH CT TO 20CM SUCTION NO AIR LEAK, OGT WITH COFFEE GROUND EMESIS AGUERO DRAINING YELLOW URINE [address] BROWN TO CONFIRM HE WAS AWARE OF COFFEE GROUND COLOR FROM OGT, ORDERS TO CONTINUE GIVING PO MEDS 0900 DR KO IN UNIT, ORDERED FENTANYL GTT DR RING PAGED TO NOTIFY OF PT IN AND OUT OF FIB HAVING EPISODES OF SINUS IN THE 80S BUT ONLY PERFUSING APPROX 50 BEATS DUE TO PVCS, NO NEW ORDERS, PT SUSTAINING SINUS IN 70-80S CURRENTLY. FAMILY SPOKE WITH DR KO AND DENIES ALL QUESTIONS
[2019-04-02 11:32] LABS: HEMATOCRIT 28.6 % (42.0-54.0); MCH 27.9 pg (26.0-34.0); MCHC 31.5 g/dL (31.0-37.0); MCV 88.5 fL (80.0-100.0); MEAN PLATELET VOLUME 10.3 fL (7.4-10.4); PLATELET COUNT 204 10x3/uL (130-400); RBC 3.23 10x6/uL (4.20-6.10); RDW 15.1 % (11.5-14.5); WBC 13.5 10x3/uL (4.8-10.8)
[2019-04-02 13:25] LABS: LYMPHOCYTES 7 % (15-50); MONOCYTES 15 % (2-11); NEUTROPHILS 77 % (40-80); PLATELET ESTIMATE NORMAL
[2019-04-02 17:39] LABS: BASOPHILS 0.1 % (0-2); EOSINOPHILS 0 % (0-7); HEMOGLOBIN 9.2 g/dL (13.5-17.5); IMMATURE GRANULOCYTES 2.2 % (0-5); LYMPHOCYTES 7.1 % (15-50); MCH 27.9 pg (26.0-34.0); MCHC 31.7 g/dL (31.0-37.0); MCV 87.9 fL (80.0-100.0); MEAN PLATELET VOLUME 10.6 fL (7.4-10.4); MONOCYTES 9.3 % (2-11); NEUTROPHILS 81.3 % (40-80); PLATELET COUNT 182 10x3/uL (130-400); WBC 13.9 10x3/uL (4.8-10.8)
--- NOTE | 2019-04-02 17:54 | NUR ---
PT REPOSITIONED Q2 HOURS, ORAL CARE AND SUCTIONING DONE WELL, PT REPOSITIONED WITH PILLOWS AND TURN BED, FAMILY IN WAITING ROOM AND UPDATED BY MDS THROUGHOUT DAY, 1630 DR JACKSON IN UNIT AND ORDERS RECIEVED FOR CARDIZEM TO BE CHANGED TO [address] DRESSING CHANGED, FAMILY DENY ALL QUESTIONS AND LEFT FOR DINNER
--- NOTE | 2019-04-02 19:30 | NUR ---
PT INTUBATED AND SEDATED, NO S/S OF PAIN OR AGITATION AT THIS TIME. FIO2 @ 50%, SPO2 97. PERIPHERAL PULSES PRESENT. BILATERAL WRIST RESTRAINTS IN USE. BOWEL SOUNDS HYPOACTIVE IN ALL QUADRANTS. AGUERO CATH INTACT WITH KRISHNA URINE TO BEDSIDE DRAINAGE. PT REPOSITIONED WITH PROMINENCES BRIDGED. ORAL CARE PROVIDED. VSS, ROOM VISIBLE FROM NURSES STATION. CPOC.
--- NOTE | 2019-04-02 20:22 | NUR ---
FAMILY AT BEDSIDE, UPDATE PROVIDED AND ALL QUESTIONS ANSWERED. NO S/S OF PAIN OR ACUTE DISTRESS, VSS. FAMILY DENIES FURTHER NEEDS AT THIS TIME. ROOM VISIBLE FROM NURSES STATION. CPOC.
--- NOTE | 2019-04-02 22:15 | NUR ---
PT REPOSIITONED WITH PROMINENCES BRIDGED, PARTIAL LINEN CHANGE. ORAL CARE PROVIDED. VSS, NO S/S OF PAIN. ROOM VISIBLE FROM NURSES STATION. CPOC.
[2019-04-02 23:25] LABS: LYMPHOCYTES 14.3 % (15-50); MCH 29.2 pg (26.0-34.0); MCHC 33.3 g/dL (31.0-37.0); MCV 87.7 fL (80.0-100.0); MEAN PLATELET VOLUME 10.2 fL (7.4-10.4); NEUTROPHILS 74.4 % (40-80); PLATELET COUNT 170 10x3/uL (130-400); RBC 3.08 10x6/uL (4.20-6.10); RDW 14.7 % (11.5-14.5); WBC 12.9 10x3/uL (4.8-10.8)
[2019-04-03] VITALS (43 sets, daily range): BP systolic 91–142; BP diastolic 60–84
--- NOTE | 2019-04-03 01:20 | NUR ---
PT REPOSITIONED WITH PROMINENCES BRIDGED, PARTIAL LINEN CHANGE. AGUERO CARE PROVIDED. ORAL CARE PROVIDED. VSS, NO S/S OF ACUTE DISTRESS. ROOM VISIBLE FROM NURSES STATION. CPOC.
--- NOTE | 2019-04-03 03:00 | NUR ---
REASSESSMENT COMPLETE, SEE FLOWSHEET. PT REPOSITIONED WITH PROMINENCES BRIDGED. ORAL CARE PROVIDED. VSS, ROOM VISIBLE FROM NURSES STATION. CPOC.
--- NOTE | 2019-04-03 04:00 | NUR ---
CVL DRESSING CHANGED PER POLICY
--- NOTE | 2019-04-03 05:00 | NUR ---
CHG BATH AND COMPLETE LINEN CHANGE PROVIDED. PROMINENCES BRIDGED. ORAL CARE PROVIDED. VSS, NO S/S OF PAIN. ROOM VISIBLE FROM NURSES STATION. CPOC.
[2019-04-03 06:36] LABS: HEMATOCRIT 27.8 % (42.0-54.0); HEMOGLOBIN 8.8 g/dL (13.5-17.5); MCH 28.9 pg (26.0-34.0); MCHC 31.7 g/dL (31.0-37.0); MEAN PLATELET VOLUME 10.9 fL (7.4-10.4); PLATELET COUNT 184 10x3/uL (130-400); RBC 3.05 10x6/uL (4.20-6.10); RDW 15.2 % (11.5-14.5); WBC 11.7 10x3/uL (4.8-10.8)
[2019-04-03 06:37] LABS: MCV 91.1 fL (80.0-100.0)
--- NOTE | 2019-04-03 07:54 | NUR ---
0700 PT RECIEVED SEDATED ON VENT, R IJ CVL DRESSING CHANGED BY PREVIOUS SHIFT, SEE IV FLOWSHEET, R CT WITH SEROUS DRAINAGE, ABD DISTENDED, OGT LIS COFFEE GROUND DRAINAGE, DR BROWN IN UNIT AND AWARE, AGUERO DRAINING YELLOW KRISHNA URINE, REPOSITIONED AND ORAL CARE DONE, ALARM SET ON MONITOR
[2019-04-03 07:59] LABS: LYMPHOCYTES 6 % (15-50); MONOCYTES 2 % (2-11); NEUTROPHILS 89 % (40-80); PLATELET ESTIMATE NORMAL
[2019-04-03 08:00] LABS: ROULEAUX OCC; TEAR DROP CELLS 1+
--- NOTE | 2019-04-03 08:40 | NUR ---
PT HR 60S HITTING 58, DR JACKSON PAGED ORDERS TO DC CARDIZEM AND START SOTALOL
--- NOTE | 2019-04-03 08:54 | NUR ---
DR KO IN UNIT, LABS ORDERED, STEFANI SPOKE WITH FAMILY
[2019-04-03 09:02] LABS: INR 1.46 (0.85-1.17); PROTIME 17.2 SECONDS (11.6-15.0)
--- NOTE | 2019-04-03 09:29 | NUR ---
RECIEVED CALL FROM LAB OF GLUCOSE 610, FSBS 161. CALLED LAB BACK AND THEY SAID THE TUBES MAY HAVE BEEN CONTAMINATED. ATTEMPTED TO REDRAW ALL LABS AND CVL FLUSHES WELL BUT DOES NOT DRAW. CALLED AND SPOKE WITH MELISSA IN LAB TO REDRAW.
[2019-04-03 09:59] LABS: ANION GAP 14.3 mmol/L (8-16); CARBON DIOXIDE 22.4 mmol/L (21.0-32.0); CREATININE - SERUM 1.3 mg/dL (0.6-1.3); POTASSIUM - SERUM 4.7 mmol/L (3.5-5.1)
[2019-04-03 10:13] LABS: ALBUMIN 2.1 g/dL (3.4-5.0); BILIRUBIN - TOTAL 0.57 mg/dL (0.2-1.3); PROTEIN - SERUM 6.3 g/dL (6.4-8.2)
[2019-04-03 10:32] LABS: BASOPHILS 0.3 % (0-2); EOSINOPHILS 0 % (0-7); HEMATOCRIT 29.8 % (42.0-54.0); HEMOGLOBIN 9.4 g/dL (13.5-17.5); IMMATURE GRANULOCYTES 5.3 % (0-5); LYMPHOCYTES 3.7 % (15-50); MCH 28.2 pg (26.0-34.0); MCHC 31.5 g/dL (31.0-37.0); MCV 89.5 fL (80.0-100.0); MEAN PLATELET VOLUME 10.8 fL (7.4-10.4); MONOCYTES 11.8 % (2-11); NEUTROPHILS 78.9 % (40-80); PLATELET COUNT 192 10x3/uL (130-400); RBC 3.33 10x6/uL (4.20-6.10); RDW 14.9 % (11.5-14.5); WBC 14.5 10x3/uL (4.8-10.8)
[2019-04-03 10:38] LABS: AMYLASE - SERUM 30 U/L (25-115); LIPASE 65 U/L (73-393)
--- NOTE | 2019-04-03 10:50 | NUR ---
labs called to dr cortés with orders to turn off propofol and begin cpap trials, milana spoke with rt for orders
--- NOTE | 2019-04-03 11:17 | EC ---
PATIENT:BRISEIDA NOGUEIRA DATE OF SERVICE: 03/27/19 SEX: M MEDICAL RECORD: [id number] DATE OF : 43 LOCATION:[place] [address] AGE OF PATIENT: 73 ADMISSION DATE: 03/27/19 REFERRING PHYSICIAN: INTERPRETING PHYSICIAN: DORI MORROW MD ECHOCARDIOGRAM REPORT ECHO CHARGES 5 ECHO LIMITED Date: 04/01/19 CLINICAL DIAGNOSIS: ASSESS EF, ELEVATED TROPONIN,ID ECHOCARDIOGRAPHIC MEASUREMENTS (adult normal given) AC root (d.<3.7cm) 3.8 cm LV Septum d (<1.2 cm> 1.4 cm Valve Excursion 1.4 cm LV Septum (systole) 1.5 cm Left Atria (s.<4.0cm> 4.2 cm LVPW d(<1.2cm) 1.5 cm RV (d.<2.3cm) 3.6 cm LVPW (sytole) 1.7 cm LV diastole(<5.6CM) 5.7 cm MV E-F(>70mm/sec) cm LV systole 4.3 cm LVOT Diameter 2.2 cm MV exc.(>10mm) 1.2 cm Est.ejection fraction (50-75%) % DOPPLER: LVIT cm/sec A 107 cm/sec E 88.0 cm/sec LA cm/sec RVSP 13 mmHg LVOT 77 cm/sec AOP1/2T m/s Asc. Ao 131 cm/sec RVOT cm/sec RA cm/sec PA cm/sec AV Gradient Peak 6.86 mmHg AV Mean 3.68 mmHg AV Area 2.6 cm MV Gradient Peak 5.12 mmHg MV Mean 1.82 mmHg MV Area cm COMMENTS: Shank Sorter: Tex THOMPSON Roll Over Loader: 1 Dr. Morrow TAPE# PACS Pericardial Effusion N DATE OF SERVICE: 04/01/2019 Limited Echo For Ejection Fraction FINDINGS: 1. Left ventricular chamber size is within normal limits. Left ventricular systolic function is now back to normal at 45% to 50%. TRANSINT:[id number] Voice Confirmation ID: [id number] DOCUMENT ID: [id number] ECHOCARDIOGRAM REPORT [id number] MIRLANDEBRISEIDA Grewal DORI HARRIS MD at 1014 CC: [id number] DICTATION DATE: 04/02/19 1552 ELECTRONIC OPERATOR: 04/02/19 1849 ADM IN [facility] [address] [place] [id number]
--- NOTE | 2019-04-03 11:49 | NUR ---
CALLED DR KO TO NOTIFY THAT PT IS NOT FOLLOWING COMMANDS OR OPENING EYES TO COMMANDS THOUG OPENS EYES SPONTANOUSLY, AND 200ML FROM OGT, ORDERS FOR REGLAN AND TO CONTINUE ON CPAP
--- NOTE | 2019-04-03 12:35 | NUR ---
Nutrition Consult/Follow-up: Received consult to start tube feeding. Noted pt with output from OGT. Discussed with nurse who reports MD wants to start TF. Noted Diprivan at 11 mL/hr (provides 290 kcal). Wt: 270# Last BM: 03/26 per chart Labs noted: GFR 52, Glu 168, Ca 8.2, Alb 2.2, AST 779, ALT 901 Meds noted: NS @ 75, Diprivan, Solumedrol -Start Pulmocare @ 10 mL/hr and increase by 10 mL q 6 hrs to goal rate of 50 mL/hr (provides 1800 kcal, 75 g protein, 942 mL H2O) with H2O flushes 100 mL q 4 hrs. -RD following. Thanks for consult!
--- NOTE | 2019-04-03 12:36 | NUR ---
PT IN AFIB RATE 130S, DR KO PAGED ORDERS FOR ASSIST CONTROL AND SEDATION, RT NOTIFIED, DR JACKSON PAGED AND RETURNED CALL, UPDATED WITH ORDERS FOR 20 CARDIZIEM
--- NOTE | 2019-04-03 13:26 | NUR ---
PT NSR PVCS 60-70S DR MCDONALD IN UNIT AND AWARE
--- NOTE | 2019-04-03 15:24 | NUR ---
TUBE FEEDS INITIATED
--- NOTE | 2019-04-03 15:45 | NUR ---
AIR LEAK IN CUFF OF ETT NOTED, RT ATTEMPTED TO FIX AND UNABLE, THEY NOTIFIED DR KO NOTIFIED AND ORDERS TO CHANGE ETT
--- NOTE | 2019-04-03 17:23 | NUR ---
ett changed to 8.[address] hopkins, ogt replaced and cxr read by dr hopkins, tube feeds initiated
[2019-04-03 18:34] LABS: BASOPHILS 0.5 % (0-2); EOSINOPHILS 0 % (0-7); HEMOGLOBIN 9.3 g/dL (13.5-17.5); LYMPHOCYTES 13.9 % (15-50); MCV 90.4 fL (80.0-100.0); MEAN PLATELET VOLUME 10.5 fL (7.4-10.4); MONOCYTES 10.6 % (2-11); PLATELET COUNT 178 10x3/uL (130-400); RBC 3.32 10x6/uL (4.20-6.10); RDW 14.9 % (11.5-14.5); WBC 15.7 10x3/uL (4.8-10.8)
--- NOTE | 2019-04-03 19:08 | NUR ---
REPORT RECEIVED, SHIFT ASSESSMENT COMPLETED PER FLOW SHEET, SEE FOR DETAILS. 2050 SCHEDULED MEDS GIVEN. 2099 TOLERATING TUBE FEEDINGS, RATE INCREASED TO 20 ML PER ORDERS. FAMILY AT BEDSIDE, UPDATE GIVEN. 2300 REASSESSMENT COMPLETED PER FLOW SHEET, SEE FOR DETAILS.
[2019-04-04] VITALS (24 sets, daily range): BP systolic 98–121; BP diastolic 62–79
[2019-04-04] LABS: HEMATOCRIT 27.7 % (42.0-54.0); HEMOGLOBIN 9.2 g/dL (13.5-17.5); LYMPHOCYTES 15.3 % (15-50); MCH 29.3 pg (26.0-34.0); MCHC 33.2 g/dL (31.0-37.0); MEAN PLATELET VOLUME 10.5 fL (7.4-10.4); NEUTROPHILS 73.2 % (40-80); RBC 3.14 10x6/uL (4.20-6.10); RDW 14.4 % (11.5-14.5); WBC 13.8 10x3/uL (4.8-10.8)
[2019-04-04 00:04] LABS: MCV 88.2 fL (80.0-100.0); PLATELET COUNT 109 10x3/uL (130-400)
--- NOTE | 2019-04-04 01:00 | NUR ---
NO ACUTE CHANGES NOTED, WILL CONTINUE TO MONITOR. 0304 REASSESSMENT COMPLETED PER FLOW SHEET, SEE FOR DETAILS. 0500 COMPLETE BED BATH GIVEN, AGUERO CARE PROVIDED, COMPLETE BED LINEN CHANGE, TOLERATED WELL.
[2019-04-04 06:20] LABS: HEMATOCRIT 29.4 % (42.0-54.0); HEMOGLOBIN 9.1 g/dL (13.5-17.5); IMMATURE GRANULOCYTES 8.1 % (0-5); MCH 28.3 pg (26.0-34.0); MEAN PLATELET VOLUME 10.9 fL (7.4-10.4); RBC 3.22 10x6/uL (4.20-6.10); RDW 14.9 % (11.5-14.5); WBC 16.8 10x3/uL (4.8-10.8)
[2019-04-04 06:21] LABS: MCV 91.3 fL (80.0-100.0); PLATELET COUNT 178 10x3/uL (130-400)
[2019-04-04 06:43] LABS: ALBUMIN 2.1 g/dL (3.4-5.0); ANION GAP 13.1 mmol/L (8-16); BILIRUBIN - TOTAL 0.52 mg/dL (0.2-1.3); CALCIUM 7.8 mg/dL (8.5-10.1); CARBON DIOXIDE 24.7 mmol/L (21.0-32.0); CREATININE - SERUM 1.1 mg/dL (0.6-1.3); POTASSIUM - SERUM 4.8 mmol/L (3.5-5.1)
[2019-04-04 07:49] LABS: LYMPHOCYTES 18 % (15-50); MONOCYTES 5 % (2-11); NEUTROPHILS 77 % (40-80); PLATELET ESTIMATE NORMAL; POIKILOCYTOSIS OCC; TARGET CELLS OCC; TEAR DROP CELLS OCC
--- NOTE | 2019-04-04 09:48 | NUR ---
PT SEDATED AND ON VENTILATOR. VSS, AFEBRILE. FAMILY AT BS. NANCY TF. TURNED AND MOUTH CARE COMPLETED.
[2019-04-04 10:36] LABS: MAGNESIUM - SERUM 3.2 mg/dL (1.8-2.4); PHOSPHOROUS 2.7 mg/dL (2.5-4.9)
--- NOTE | 2019-04-04 12:58 | NUR ---
DR MCDONALD HERE AND SPOKE TO FAMILY AT BS.
[2019-04-04 17:08] LABS: BASOPHILS 0.8 % (0-2); EOSINOPHILS 0 % (0-7); HEMATOCRIT 27.5 % (42.0-54.0); HEMOGLOBIN 8.5 g/dL (13.5-17.5); IMMATURE GRANULOCYTES 10.5 % (0-5); LYMPHOCYTES 3.1 % (15-50); MCH 28.6 pg (26.0-34.0); MCHC 30.9 g/dL (31.0-37.0); MCV 92.6 fL (80.0-100.0); MEAN PLATELET VOLUME 10.9 fL (7.4-10.4); MONOCYTES 14.4 % (2-11); NEUTROPHILS 71.2 % (40-80); PLATELET COUNT 176 10x3/uL (130-400); RBC 2.97 10x6/uL (4.20-6.10); RDW 14.9 % (11.5-14.5); WBC 14.6 10x3/uL (4.8-10.8)
--- NOTE | 2019-04-04 18:11 | NUR ---
HBG 8.[address] ROSARIO. REC'D NEW ORDER TO TRANSFUSE IF HBG DROPS BELOW 8.0.
--- NOTE | 2019-04-04 21:00 | NUR ---
VSS. FAMILY AT BEDSIDE. UPDATE GIVEN. QUESTIONS ANSWERED.
--- NOTE | 2019-04-04 22:48 | NUR ---
REPORT RECEIVED. RECEIVED PATIENT IN BED. SEDATED/INTUBATED. ETT INTACT SECURE/PATENT CONNECTED TO [facility] VENT WITH SETTINGS ORDERED. OGT INTACT/SECURE/PATENT WITH TUBE FEEDING INFUSING ORDERED. HOB UP 30 DEGREES. MONITORS CONNECTED TO PATIENT WITH ALARMS SET. VSS. ASSESSMENT COMPLETED PER FLOW SHEET WITH NO ACUTE DISTRESS OBSERVED. IV FLUIDS/TUBING LABELED DATED AND CURRENT WITH SWAB CAPS COVERING UNUSED ACCESS PORTS.
[2019-04-04 22:49] LABS: BASOPHILS 0.6 % (0-2); EOSINOPHILS 0.1 % (0-7); HEMATOCRIT 29.6 % (42.0-54.0); HEMOGLOBIN 9.1 g/dL (13.5-17.5); IMMATURE GRANULOCYTES 12.5 % (0-5); LYMPHOCYTES 3.6 % (15-50); MCH 28.2 pg (26.0-34.0); MCHC 30.7 g/dL (31.0-37.0); MCV 91.6 fL (80.0-100.0); MEAN PLATELET VOLUME 10.8 fL (7.4-10.4); NEUTROPHILS 68.2 % (40-80); PLATELET COUNT 182 10x3/uL (130-400); RBC 3.23 10x6/uL (4.20-6.10); RDW 14.9 % (11.5-14.5); WBC 17.1 10x3/uL (4.8-10.8)
--- NOTE | 2019-04-04 23:00 | NUR ---
REASSESSMENT COMPLETED PER FLOW SHEET WITH NO ACUTE DISTRESS OBSERVED. VSS. HOB UP 30 DEGREES. ETT/OGT INTACT/SECURE/PATENT.
[2019-04-05] VITALS (23 sets, daily range): BP systolic 90–121; BP diastolic 52–82
--- NOTE | 2019-04-05 01:00 | NUR ---
VSS. NO DISTRESS OBSERVED.
--- NOTE | 2019-04-05 03:00 | NUR ---
REASSESSMENT COMPLETED PER FLOW SHEET WITH NO ACUTE DISTRESS OBSERVED. VSS
[2019-04-05 04:37] LABS: HEMATOCRIT 27.5 % (42.0-54.0); HEMOGLOBIN 8.4 g/dL (13.5-17.5); MCHC 30.5 g/dL (31.0-37.0); MCV 91.7 fL (80.0-100.0); MEAN PLATELET VOLUME 10.5 fL (7.4-10.4); PLATELET COUNT 177 10x3/uL (130-400)
--- NOTE | 2019-04-05 05:00 | NUR ---
CHG BATH AND FC CARE GIVEN. ORAL CARE GIVEN. LINENS CHANGED. TURNED AND REPOSITIONED. NANCY WITHOUT DIFF. VSS. CVL DRSG CHANGED.
[2019-04-05 05:39] LABS: LYMPHOCYTES 14 % (15-50); MONOCYTES 4 % (2-11); NEUTROPHILS 76 % (40-80); PLATELET ESTIMATE DECREASED; POIKILOCYTOSIS 1+; SMUDGE CELLS 1+
--- NOTE | 2019-04-05 07:00 | NUR ---
RECEIVED BEDSIDE REPORT ON PATIENT AND ASSUMED CARE. PATIENT SEDATED ON VENT. VSS. RIGHT IJ CVL WITH BLOODY DRAINAGE NOTED TO DRESSING, WAS CHANGED ON DIRECTOR OF COUNSELING. PROPOFOL INFUSING AT 14 MCG/KG/MIN, FENTANYL AT 25 MCG/HR AND NS AT 75 CC/HR. OGT WITH PULMOCARE INFUSING AT 50 CC/HR WITH 100 CC H2O FLUSHES Q4HRS, PLACEMENT CHECKED VIA ASCULATION, NO RESIDUAL ASPIRATED. VENT SETTINGS ARE TV 550, A/C - 20, PEEP 8, FIO2 - 50%, BBS - CLEAR AND EQUAL, CM - SR WITH PVCS RATE 66. AGUERO CATH IN PLACE WITH 150 CC YELLOW UOP NOTED. HEAD TO TOE ASSESSMENT COMPLETED. SCDS AND SHIV MOSES INPLACE.
--- NOTE | 2019-04-05 08:42 | NUR ---
DR. BROWN AT ROOM UPDATED AND EXAMINES PATIENT. PATIENT TURNED AND REPOSITIONED. VSS. MEDS GIVEN PER JUL.
--- NOTE | 2019-04-05 08:56 | NUR ---
CHEST TUBE DRESSING CHANGED, BETADINE OINTMENT TO INSERTION SITES.
--- NOTE | 2019-04-05 09:23 | NUR ---
DR. JOHNSON AT ROOM DECREASES IV FLUID TO 100 CC/HR. OK TO TRANSFER TO FLOOR.
--- NOTE | 2019-04-05 09:31 | NUR ---
SEDATION VACATION STARTED FOR CPAP/WEANING TRIAL.
--- NOTE | 2019-04-05 09:37 | NUR ---
NUTRITION F/U NURSING REPORTS PT TOLERATING PULMOCARE AT GOAL RATE 50 CC/HR. POSSIBLE EXTUBATION TODAY. RD FOLLOWING
--- NOTE | 2019-04-05 09:48 | NUR ---
PATIENT TURNED AND REPOSITIONED FOR OUTSIDE FOOD SERVER. PATIENT WITH EYES OPEN AND RESTLESS, SEDATION OFF, VSS. NOT FOLLOWING COMMANDS.
--- NOTE | 2019-04-05 09:58 | NUR ---
PATIENT EXTREMELY RESTLESS, THRASHING SIDE TO SIDE IN BED, NOT FOLLOWING COMMANDS, RR 38, PROPOFOL RESTARTED AT INTIAL RATE. HEAD OF ICT AT ROOM FOR ECHOCARDIOGRAM. FAMILY UPDATED BRIEFLY AND SENT TO WAITING ROOM FOR ECHO. FENTANYL REMAINS OFF.
--- NOTE | 2019-04-05 10:17 | NUR ---
PATIENTS KILLIAN HELEN AT BEDSIDE, UPDATED AND QUESTIONS ANSWERED.
--- NOTE | 2019-04-05 10:23 | NUR ---
PROPOFOL DECREASED TO 7 MCG/KG/MIN, FOR CPAP TRAIL. CPAP 02/12.
--- NOTE | 2019-04-05 10:29 | NUR ---
DR. MCDONALD AND DR. KO AT ROOM. EXAMINES PATIENT AND SPEAKS TO PATIENTS FAMILY. FENTANYL RESTARTED AT 25 MCG/HR AND PROPOFOL STOPPED.
--- NOTE | 2019-04-05 10:40 | NUR ---
POSTERIOR CHEST TUBE REMOVED PER DARIANA RN WITH DR. MCDONALD. DUAL CHANBER CHEST TUBE REPLACED WITH SINGLE CHAMBER CHEST TUBE. TO WATER SEAL, NO AIR LEAK.
--- NOTE | 2019-04-05 11:00 | NUR ---
REASSESSMENT COMPLETED. MEDS PER MAR. TURNED AND REPOSITIONED IN BED. VSS.
--- NOTE | 2019-04-05 11:37 | NUR ---
PATIENTS AT BEDSIDE, UPDATED AND QUESTIONS ANSWERED. PLACED BACK ON A/C PER RT. SEDATION BACK ON, RESTING QUIETLY. TOLERATED CPAP 1.5 HOURS.
--- NOTE | 2019-04-05 13:25 | NUR ---
PATIENTS SON AND DAUGHER AT ROOM UPDATED AND QUESTIONS ANSWERED.
--- NOTE | 2019-04-05 15:11 | NUR ---
REASSESSMENT COMPLETED. VSS. PROPOFOL AND TUBING CHANGED, TUBE FEEDING AND TUBING CHANGED. PATIENT TURNED AND REPOSTIONED IN BED.
--- NOTE | 2019-04-05 15:28 | EC ---
PATIENT:BRISEIDA NOGUEIRA DATE OF SERVICE: 03/27/19 SEX: M MEDICAL RECORD: [id number] DATE OF : 43 LOCATION:[place] [address] AGE OF PATIENT: 73 ADMISSION DATE: 03/27/19 REFERRING PHYSICIAN: INTERPRETING PHYSICIAN: DORI MORROW MD ECHOCARDIOGRAM REPORT ECHO CHARGES 5 ECHO LIMITED Date: 04/05/19 2 DOPPLER ECHO PULSE CLINICAL DIAGNOSIS: SYNCOPE/PLEURAL EFFUSION/ HEMOTHORAX ECHOCARDIOGRAPHIC MEASUREMENTS (adult normal given) AC root (d.<3.7cm) 0 cm LV Septum d (<1.2 cm> 0 cm Valve Excursion 0 cm LV Septum (systole) 0 cm Left Atria (s.<4.0cm> 0 cm LVPW d(<1.2cm) 0 cm RV (d.<2.3cm) 0 cm LVPW (sytole) 0 cm LV diastole(<5.6CM) 0 cm MV E-F(>70mm/sec) 0 cm LV systole 0 cm LVOT Diameter 0 cm MV exc.(>10mm) 0 cm Est.ejection fraction (50-75%) 0 % DOPPLER: LVIT 0 cm/sec A 0 cm/sec E 0 cm/sec LA 0 cm/sec RVSP 54.3 mmHg LVOT 0 cm/sec AOP1/2T 0 m/s Asc. Ao 0 cm/sec RVOT 0 cm/sec RA 0 cm/sec PA 0 cm/sec AV Gradient Peak 0 mmHg AV Mean 0 mmHg AV Area 0 cm MV Gradient Peak 0 mmHg MV Mean 0 mmHg MV Area 0 cm COMMENTS: LIMITED STUDY (2-D & DOPPLER ONLY) Lehr Stripper: Song NGUYEN Bowling Ball Engraver: 1 Dr. Morrow TAPE# PACS Pericardial Effusion N DATE OF SERVICE: PROCEDURE: Limited echocardiogram for ejection fraction. FINDINGS: Left ventricular chamber size is upper limits of normal. Left ventricular systolic function is moderately reduced at 35%. Pulmonary systolic pressure is elevated at 54 mmHg. TRANSINT:[id number] Voice Confirmation ID: [id number] DOCUMENT ID: [id number] ECHOCARDIOGRAM REPORT [id number] MIRLANDEBRISEIDA Grewal DORI HARRIS MD at 4312 CC: [id number] DICTATION DATE: 04/05/19 1235 TRUCK CRANE OPERATOR HELPER: 04/05/19 1243 ADM IN [facility] [address] [place] [id number]
--- NOTE | 2019-04-05 16:29 | NUR ---
PATIENT TURNED AND REPOSITIONED IN BED. MEDS GIVEN PER MAR.
--- NOTE | 2019-04-05 17:50 | NUR ---
PATIENT RESTING QUIETLY ON VENT, VSS. PATIENT TURNED NAD REPOSITIONED IN BED.
--- NOTE | 2019-04-05 19:00 | NUR ---
REPORT RECEIVED. RECEIVED PATIENT IN BED SEDATED/INTUBATED. ETT INTACT/ SECURE/PATENT CONNECTED TO MECHANICAL VENT WITH SETTINGS ORDERED. OGT INTACT/SECURE/PATENT WITH PULMOCARE TUBE FEEDING INFUSING ORDERED. HOB UP 30 DEGREES. RT CHEST TUBE INTACT/SECURE/PATENT DRAINING SCANT AMOUNT OF SEROUS FLUID INTO COLLECTION CHAMBER WITH NO AIR LEAK VISIBLE. ASSESSMENT COMPLETED PER FLOW SHEET WITH NO ACUTE DISTRESS OBSERVED. MONITORS CONNECTED TO PATIENT WITH ALARMS SET. VSS. CVL INTACT/SECURE/PATENT WITH IV FLUIDS/TUBING LABELED/DATED AND CURRENT, SWAB CAPS COVERING ALL UNUSED ACCESS PORTS.
--- NOTE | 2019-04-05 21:00 | NUR ---
NO CHANGES. VSS. ETT/OGT INTACT/SECURE/PATENT. HOB UP 30 DEGREES
--- NOTE | 2019-04-05 23:00 | NUR ---
REASSESSMENT COMPLETED PER FLOW SHEET WITH NO ACUTE DISTRESS OBSERVED. VSS. HOB UP 30 DEGREES. ETT/OGT INTACT/SECURE/PATENT.
[2019-04-06] VITALS (20 sets, daily range): BP systolic 87–123; BP diastolic 47–84
--- NOTE | 2019-04-06 01:00 | NUR ---
VSS. ETT/OGT INTACT/SECURE/PATENT. HOB UP 30 DEGEREES. CONT POC
--- NOTE | 2019-04-06 03:00 | NUR ---
REASSESSMENT COMPLETED PER FLOW SHEET WITH NO ACUTE DISTRESS OBSERVED. VSS.
--- NOTE | 2019-04-06 05:00 | NUR ---
CHG BATH GIVEN. ORAL CARE PROVIDED. TURNED AND REPOSITIONED. HOB UP 30 DEGREES. NANCY WELL. VSS. NO DISTRESS OBSERVED.
[2019-04-06 06:21] LABS: ALKALINE PHOSPHATASE 145 U/L (46-116); BILIRUBIN - TOTAL 0.52 mg/dL (0.2-1.3); CALCIUM 7.8 mg/dL (8.5-10.1); CARBON DIOXIDE 28.1 mmol/L (21.0-32.0); CHLORIDE - SERUM 107 mmol/L (98-107); POTASSIUM - SERUM 4.5 mmol/L (3.5-5.1); PROTEIN - SERUM 5.7 g/dL (6.4-8.2); SODIUM 141 mmol/L (136-145); UREA NITROGEN 45 mg/dL (7-18)
[2019-04-06 06:23] LABS: ALT (SGPT) 346 U/L (10-68); CALC OSMOLALITY 295 mosm/kg (275-300); CREATININE - SERUM 0.8 mg/dL (0.6-1.3); GLUCOSE 154 mg/dL (74-106); eGFR NON AFRICAN AMERICAN > 90 mL/min (90-120)
[2019-04-06 06:30] LABS: HEMATOCRIT 30.2 % (42.0-54.0); HEMOGLOBIN 9.4 g/dL (13.5-17.5); MCH 28.3 pg (26.0-34.0); MCHC 31.1 g/dL (31.0-37.0); MEAN PLATELET VOLUME 10.8 fL (7.4-10.4); PLATELET COUNT 195 10x3/uL (130-400); RBC 3.32 10x6/uL (4.20-6.10); RDW 14.9 % (11.5-14.5); WBC 23.5 10x3/uL (4.8-10.8)
[2019-04-06 07:37] LABS: EOSINOPHILS 2 % (0-7); LYMPHOCYTES 10 % (15-50); MONOCYTES 1 % (2-11); NEUTROPHILS 85 % (40-80); PLATELET ESTIMATE NORMAL
--- NOTE | 2019-04-06 08:13 | NUR ---
TEMP 99.2. TURNED AND MOUTH CARE COMPLETE.
--- NOTE | 2019-04-06 09:30 | NUR ---
CPAP TRIALS STARTED. SEDATION DECREASED PROPOLOL TO 6MCG/KG/MIN.
--- NOTE | 2019-04-06 10:47 | NUR ---
CPAP TRIALS X 1 HOUR AND PT HR INCREASED TO 130 TO 140BPM. RT REPLACED VENT SETTINGS TO A/C RATE OF 20. SEDATION RESUMED.
--- NOTE | 2019-04-06 11:27 | NUR ---
DR KO HERE ON ROUNDS WITH RT.
--- NOTE | 2019-04-06 12:59 | NUR ---
AFIB 135BPM. PAGED DR JACKSON. REC'D ORDER FOR IV CARDIZEM AND BETAPACE TO INCREASE.
--- NOTE | 2019-04-06 13:13 | NUR ---
DR JACKSON HERE TALKING TO FAMILY AT .
[2019-04-06 15:58] LABS: APPEARANCE CLEAR (CLEAR); BILIRUBIN NEGATIVE (NEGATIVE); COLOR YELLOW (YELLOW); GLUCOSE NEGATIVE (NEGATIVE); KETONE NEGATIVE (NEGATIVE); NITRITE NEGATIVE (NEGATIVE); PROTEIN TRACE mg/dL (NEGATIVE); SPECIFIC GRAVITY 1.015 (1.005-1.020); UROBILINOGEN NORMAL (NORMAL)
[2019-04-06 16:00] LABS: BACTERIA FEW /hpf (NEGATIVE); EPITHELIAL CELLS 0-5 /hpf (0-5); HYALINE CAST OCC /lpf (NONE SEEN); WHITE CELLS - URINE OCC /hpf (NEGATIVE)
--- NOTE | 2019-04-06 16:40 | NUR ---
NSR ON CM HR 56.
--- NOTE | 2019-04-06 16:41 | NUR ---
AFIB HR [address] JACKSON. REC'D ORDER FOR BETAPACE 80MG PER OGT. GIVEN AND 15MIN NSR HR 56.
--- NOTE | 2019-04-06 19:00 | NUR ---
REPORT RECEIVED. RECEIVED PATIENT IN BED SEDATED/INTUBATED. ETT INTACT/SECURE/PATENT CONNECTED TO [facility] VENT WITH SETTINGS ORDERED. OGT INTACT/SECURE/PATENT WITH PULMOCARE INFUSING @50 ML/HR. HOB UP 30 DEGREES. ASSESSMENT COMPLETED AT THIS TIME WITH NO ACUTE DISTRESS OBSERVED. MONITORS CONNECTED TO PATIENT WITH ALARMS SET. VSS. HR 61 AND NORMAL SINUS RHYTHM ON MONITOR. IV FLUIDS/TUBING DATED/LABELED AND CURRENT, SWAB CAPS COVERING ALL UNUSED ACCESS PORTS.
--- NOTE | 2019-04-06 19:25 | NUR ---
SPOKE WITH NGOZI, NOTIFIED OF ORDER FOR MIDLINE.
--- NOTE | 2019-04-06 21:00 | NUR ---
VSS. NO DISTRESS OBSERVED.
--- NOTE | 2019-04-06 23:00 | NUR ---
REASSESSMENT COMPLETED PER FLOW SHEET WITH NO ACUTE DISTRESS OBSERVED. VSS. HOB UP 30 DEGREES . ETT/OGT INTACT/SECURE/PATENT.
[2019-04-07] VITALS (21 sets, daily range): BP systolic 91–134; BP diastolic 54–73
--- NOTE | 2019-04-07 03:00 | NUR ---
REASSESSMENT COMPLETED PER FLOW SHEET WITH NO ACUTE DISTRESS OBSERVED. VSS
--- NOTE | 2019-04-07 05:00 | NUR ---
CHG BATH AND ORAL CARE GIVEN. COMPLETE LINEN CHANGE. TURNED AND REPOSITIONED. NANCY WELL. VSS
[2019-04-07 06:45] LABS: ALBUMIN 1.9 g/dL (3.4-5.0); ALKALINE PHOSPHATASE 123 U/L (46-116); BILIRUBIN - TOTAL 0.75 mg/dL (0.2-1.3); CARBON DIOXIDE 27.8 mmol/L (21.0-32.0); CHLORIDE - SERUM 105 mmol/L (98-107); CREATININE - SERUM 0.8 mg/dL (0.6-1.3); POTASSIUM - SERUM 4.7 mmol/L (3.5-5.1); PROTEIN - SERUM 5.2 g/dL (6.4-8.2); SODIUM 139 mmol/L (136-145); UREA NITROGEN 35 mg/dL (7-18); eGFR NON AFRICAN AMERICAN > 90 mL/min (90-120)
[2019-04-07 06:47] LABS: CALC OSMOLALITY 291 mosm/kg (275-300); GLUCOSE 215 mg/dL (74-106)
[2019-04-07 06:48] LABS: ALT (SGPT) 233 U/L (10-68); CALCIUM 6.9 mg/dL (8.5-10.1)
--- NOTE | 2019-04-07 08:31 | NUR ---
CPAP TRIALS BEGAN. FENTANYL OFF AND PRECIDEX AT 0.6MCG/KG/H CONTINUES FOR CPAP TRIALS.
[2019-04-07 09:46] LABS: HEMATOCRIT 31.5 % (42.0-54.0); HEMOGLOBIN 9.7 g/dL (13.5-17.5); MCH 27.8 pg (26.0-34.0); MCHC 30.8 g/dL (31.0-37.0); MCV 90.3 fL (80.0-100.0); MEAN PLATELET VOLUME 10.8 fL (7.4-10.4); PLATELET COUNT 183 10x3/uL (130-400); RBC 3.49 10x6/uL (4.20-6.10); RDW 15.4 % (11.5-14.5); WBC 24.1 10x3/uL (4.8-10.8)
[2019-04-07 10:24] LABS: LYMPHOCYTES 11 % (15-50); MONOCYTES 2 % (2-11); NEUTROPHILS 84 % (40-80); PLATELET ESTIMATE NORMAL
[2019-04-07 10:25] LABS: POIKILOCYTOSIS OCC; TEAR DROP CELLS OCC
[2019-04-07 10:26] LABS: TARGET CELLS OCC
--- NOTE | 2019-04-07 11:06 | NUR ---
TEMP 102.4. REPORTED TO DR KO. CULTURES ORDERED.
--- NOTE | 2019-04-07 14:54 | NUR ---
TEMP 102.4. TYLENOL GIVEN. CVL DCD AND PIV X [address] MCDONALD HERE.
--- NOTE | 2019-04-07 15:09 | NUR ---
REPORTED INC TEMP [address] KO. REC'D NEW ORDERS FOR ABX TX.
--- NOTE | 2019-04-07 19:00 | NUR ---
BEDSIDE REPORT AND SHIFT ASSESSMENT COMPLETE, SEE FLOWSHEET. R CT TO WATER SEAL, DRESSING CHANGED. PREVIOUS R CT SITES WNL. AGUERO WITH YELLOW UOP. CHG BATH AND PARTIAL LINEN CHANGE COMPLETE. PT AGITATED, THROWING LEGS OOB. WILL NOT FOLLOW COMMANDS, BUT OPENS EYES OCCASIONALLY. VSS, NO SIGNS OF ACUTE DISTRESS NOTED. WILL CONTINUE TO MONITOR.
--- NOTE | 2019-04-07 19:30 | NUR ---
PT AGITATED, RESTLESS. DR STEFANI NEELY.
--- NOTE | 2019-04-07 19:35 | NUR ---
NEW ORDERS RECEIVED BY DR KO TO RESTART PRN VERSED.
--- NOTE | 2019-04-07 20:00 | NUR ---
FAMILY AT BEDSIDE, UPDATE GIVEN.
--- NOTE | 2019-04-07 21:00 | NUR ---
0 ML RESIDUAL FROM OGT. WILL RESTART PULMOCARE TUBE FEEDING.
--- NOTE | 2019-04-07 23:00 | NUR ---
REASSESSMENT COMPLETE, SEE FLOWSHEET. VSS, NO SIGNS OF ACUTE DISTRESS NOTED. PT SEDATED, OPENS EYES. WILL NOT FOLLOW COMMANDS. REPOSITIONED FOR COMFORT AND ORAL CARE COMPLETE. WILL CONTINUE TO MONITOR.
[2019-04-08] VITALS (39 sets, daily range): BP systolic 98–134; BP diastolic 54–79
--- NOTE | 2019-04-08 01:00 | NUR ---
MEDS GIVEN PER MAR. ORAL CARE COMPLETE. WILL MONITOR.
--- NOTE | 2019-04-08 03:00 | NUR ---
REASSESSMENT COMPLETE, SEE FLOWSHEET. ORAL CARE COMPLETE AND RESIDUAL FROM OGT CHECKET. WILL CONTINUE TO MONITOR.
--- NOTE | 2019-04-08 05:00 | NUR ---
VSS, NO SIGNS OF ACUTE DISTRESS NOTED. WILL MONITOR.
--- NOTE | 2019-04-08 06:30 | NUR ---
PT AGITATED, MOVING AROUND IN BED. WILL NOT FOLLOW COMMANDS.
[2019-04-08 07:00] LABS: BASOPHILS 0.1 % (0-2); EOSINOPHILS 0.5 % (0-7); HEMATOCRIT 33.2 % (42.0-54.0); HEMOGLOBIN 10.2 g/dL (13.5-17.5); IMMATURE GRANULOCYTES 5.8 % (0-5); LYMPHOCYTES 4.3 % (15-50); MCH 27.9 pg (26.0-34.0); MCHC 30.7 g/dL (31.0-37.0); MCV 90.7 fL (80.0-100.0); MEAN PLATELET VOLUME 10.9 fL (7.4-10.4); MONOCYTES 12.5 % (2-11); NEUTROPHILS 76.8 % (40-80); PLATELET COUNT 172 10x3/uL (130-400); RBC 3.66 10x6/uL (4.20-6.10); RDW 15.4 % (11.5-14.5)
--- NOTE | 2019-04-08 07:00 | NUR ---
PT REPORT RECEIVED FROM RN CALL CENTER NURSE. NO VISIBLE SIGNS OF DISTRESS NOTED. SHIFT ASSESSMENT COMPLETED. VSS. WILL CONTINUE TO MONITOR
[2019-04-08 07:08] LABS: ALKALINE PHOSPHATASE 119 U/L (46-116); ALT (SGPT) 177 U/L (10-68); BILIRUBIN - TOTAL 0.74 mg/dL (0.2-1.3); CALC OSMOLALITY 288 mosm/kg (275-300); CARBON DIOXIDE 32.9 mmol/L (21.0-32.0); CHLORIDE - SERUM 105 mmol/L (98-107); CREATININE - SERUM 0.9 mg/dL (0.6-1.3); GLUCOSE 152 mg/dL (74-106); POTASSIUM - SERUM 3.8 mmol/L (3.5-5.1); PROTEIN - SERUM 5.9 g/dL (6.4-8.2); SODIUM 140 mmol/L (136-145); UREA NITROGEN 33 mg/dL (7-18); eGFR NON AFRICAN AMERICAN 87 mL/min (90-120)
--- NOTE | 2019-04-08 09:00 | NUR ---
SEDATION VACATION STARTED PER DR KO. PRESSURE SUPPORT TRIAL STARTED ON VENT. NO VISIBLE SIGNS OF DISTRESS NOTED. VSS. WILL CONTINUE TO MONITOR
--- NOTE | 2019-04-08 11:00 | NUR ---
PT RESTING IN BED. NO VISIBLE SIGNS OF DISTRESS NOTED. REASSESSMENT COMPLETED. PT CONTINUES TO WIGGLE AROUND BED. WILL CONTINUE TO MONITOR
--- NOTE | 2019-04-08 12:21 | NUR ---
Nutrition Follow-up: Remains intubated. Tolerating TF at goal rate of 50 mL/hr. Diet: Pulmocare @ 50 Wt: 253# Last BM: 03/26 per chart Labs noted: Glu 152, Ca 8.0, Alb 2.0 Meds noted: Lasix, D5 1/2NS @ 30 -Continue TF as tolerated. - following.
--- NOTE | 2019-04-08 13:00 | NUR ---
PT RESTING IN BED. NO VISIBLE SIGNS OF DISTRESS NOTED. SEDATION STARTED BACK DUE TO PT MOVING AROUND BED. WILL CONTINUE TO MONITOR
--- NOTE | 2019-04-08 15:00 | NUR ---
PT RESTING IN BED. REASSESSMENT COMPLETED AT THIS TIME. NO VISIBLE SIGNS OF DISTRESS NOTED. VSS. WILL CONTINUE TO MONITOR
--- NOTE | 2019-04-08 17:00 | NUR ---
PT RESTING IN BED. FAMILY AT BEDSIDE. NO VISIBLE SIGNS OF DISTRESS NOTED. WILL CONTINUE TO MONITOR
--- NOTE | 2019-04-08 19:00 | NUR ---
BEDSIDE REPORT AND SHIFT ASSESSMENT COMPLETE, SEE FLOWSHEET. R UPPER ARM PICC LINE PATENT, DRESSING CDI. R AC 18G PIV INFUSING FLUIDS, SEE IV FLOWSHEET. R AC 16 G PIV SALINE LOCKED. R CHEST DRESSING CDI. VSS, NO SIGNS OF ACUTE DISTRESS NOTED. REPOSITIONING AND ORAL CARE COMPLETE. WILL CONTINUE TO MONITOR.
--- NOTE | 2019-04-08 21:00 | NUR ---
FAMILY AT BEDSIDE, UPDATE GIVEN. TUBE FEEDING BAG CHANGED, RESIDUAL CHECKED AND TUBE FEEDINGS RESTARTED. VSS, NO SIGNS OF ACUTE DISTRESS NOTED. WILL CONTINUE TO MONITOR.
--- NOTE | 2019-04-08 22:37 | NUR ---
PT CONVERTED TO AFIB HR 130-140'S. CARDIOLOGY PAGED.
--- NOTE | 2019-04-08 22:57 | NUR ---
SPOKE WITH DR COHEN, NEW ORDERS RECEIVED TO GIVE 1X DOSE OF 80 MG BETAPACE AND 0.25 DIG IV.
--- NOTE | 2019-04-08 23:10 | NUR ---
PT CONVERTED OUT OF AFIB TO BIGEMNY, HR IN THE 60'S, BEATS NOT PERFUSING. DR GAMBOA PAGED AGAIN, UPDATE GIVEN. NEW ORDERS RECEIVED TO HOLD BETAPACE AND DIG UNLESS PT CONVERTS BACK TO AFIB. NEW ORDERS RECEIVED TO INCREASE IVF FROM 30 TO 50 FOR 5 HOURS.
--- NOTE | 2019-04-08 23:25 | NUR ---
T 101.1, PRN TYLENOL GIVEN AND ICE PACKS PLACED ON PT.
[2019-04-09] VITALS (37 sets, daily range): BP systolic 89–124; BP diastolic 46–85
--- NOTE | 2019-04-09 01:00 | NUR ---
ORAL TEMP 99.7. VSS, NO SIGNS OF ACUTE DISTRESS NOTED. WILL MONITOR.
--- NOTE | 2019-04-09 03:00 | NUR ---
REASSESSMENT COMPLETE, SEE FLOWSHEET. SALINE LOCKED BOTH R AC PIV'S AND MOVED IV INFUSION TO R UPPER ARM PICC, ALL TUBING CHANGED. PT AGITATED AND RESTLESS, OBSERVED KICKING LEGS OUT OF BED AND SLAMMING HEAD INTO SIDE RAIL OF BED, PRN VERSED GIVEN FOR AGITATION. PT UNABLE TO FOLLOW COMMANDS. VSS, NO SIGNS OF ACUTE DISTRESS NOTED. WILL MONITOR.
--- NOTE | 2019-04-09 05:00 | NUR ---
PT SEDATED, OPENS EYES TO STIMULI. WILL NOT FOLLOW COMMANDS. ORAL CARE AND REPOSITIONING COMPLETE. WILL CONTINUE PLAN OF CARE.
[2019-04-09 06:00] LABS: ALBUMIN 1.7 g/dL (3.4-5.0); ALKALINE PHOSPHATASE 107 U/L (46-116); BILIRUBIN - TOTAL 0.87 mg/dL (0.2-1.3); CARBON DIOXIDE 29.6 mmol/L (21.0-32.0); CHLORIDE - SERUM 104 mmol/L (98-107); CREATININE - SERUM 0.8 mg/dL (0.6-1.3); POTASSIUM - SERUM 3.3 mmol/L (3.5-5.1); PROTEIN - SERUM 5.2 g/dL (6.4-8.2); SODIUM 141 mmol/L (136-145); UREA NITROGEN 27 mg/dL (7-18); eGFR NON AFRICAN AMERICAN > 90 mL/min (90-120)
--- NOTE | 2019-04-09 06:00 | NUR ---
AGUERO CARE COMPLETE. PT OBSERVED THROWING LEGS OOB. FENTANYL GTT TITRATED PER MAR. ORAL CARE COMPLETE. WILL CONTINUE TO MONITOR.
[2019-04-09 06:02] LABS: ALT (SGPT) 122 U/L (10-68); CALC OSMOLALITY 293 mosm/kg (275-300); CALCIUM 6.9 mg/dL (8.5-10.1); GLUCOSE 251 mg/dL (74-106)
[2019-04-09 06:12] LABS: BASOPHILS 0.1 % (0-2); EOSINOPHILS 0.7 % (0-7); HEMATOCRIT 29.5 % (42.0-54.0); IMMATURE GRANULOCYTES 4.5 % (0-5); LYMPHOCYTES 5.2 % (15-50); MCH 27.7 pg (26.0-34.0); MCHC 30.5 g/dL (31.0-37.0); MCV 90.8 fL (80.0-100.0); MEAN PLATELET VOLUME 10.6 fL (7.4-10.4); MONOCYTES 12.6 % (2-11); NEUTROPHILS 76.9 % (40-80); PLATELET COUNT 142 10x3/uL (130-400); RBC 3.25 10x6/uL (4.20-6.10); RDW 15.2 % (11.5-14.5)
[2019-04-09 06:13] LABS: WBC 17.1 10x3/uL (4.8-10.8)
--- NOTE | 2019-04-09 07:00 | NUR ---
PT REPORT RECEIVED FROM [employer]ICATION [employer]UD[employer] PROFESSOR NURSE. NO VISIBLE SIGNS OF DISTRESS NOTED. SHIFT ASSESSMENT COMPLETED. WILL CONTINUE TO MONITOR
--- NOTE | 2019-04-09 09:00 | NUR ---
PT RESTING IN BED. FAMILY AT BEDSIDE. NO SIGNS OF DISTRESS NOTED. WILL CONTINUE TO MONITOR
--- NOTE | 2019-04-09 11:00 | NUR ---
PT RESTING IN BED. REASSESSMENT COMPLETED AT THIS TIME. NO VISIBLE SIGNS OF DISTRESS NOTED. WILL CONTINUE TO MONITOR
--- NOTE | 2019-04-09 11:00 | NUR ---
PT RESTING IN BED. NO VISIBLE SIGNS OF DISTRESS NOTED. REASSESSMENT COMPLETED. WILL CONTINUE TO MONITOR
--- NOTE | 2019-04-09 12:15 | NUR ---
PAGED DR JACKSON ABOUT 14 BEAT RUN OF [facility]. DR JACKSON SAID TO NOT CHANGE ANYTHING AND KEEP AN EYE ON IT. WILL CONTINUE TO MONITOR
--- NOTE | 2019-04-09 13:00 | NUR ---
SEDATION WAS TURNED OFF. FAMILY AT BEDSIDE REQUESTING TO SPEAK WITH DR KO. DR STEFANI NEELY.
--- NOTE | 2019-04-09 13:25 | NUR ---
PT EXTUBATED AND PLACED ON 15L HIGH FLOW NASAL CANNULA
--- NOTE | 2019-04-09 16:57 | NUR ---
PAGED DR KO CONCERNING ABG RESULTS. AWAITING CALL BACK. PT IS BEGINNING TO AWAKEN. WILL CONTINUE TO MONITOR
--- NOTE | 2019-04-09 17:30 | NUR ---
ULTRASOUND IN ROOM WITH PT. VSS. NO VISIBLE SIGNS OF DISTRESS NOTED. WILL CONTINUE TO MONITOR
--- NOTE | 2019-04-09 19:11 | NUR ---
REPORT RECEIVED, SHIFT ASSESSMENT COMPLETED PER FLOW SHEET, SEE FOR DETAILS. SITER AT BEDSIDE. 2118 HR 110'S-120'S, CALLED DR. JACKSON, WILL WAIT FOR CALL BACK. 2122 DR. YOUNG RETURNED CALL WHO IS TECHNOLOGY INFUSION SPECIALIST FOR DR. JACKSON. UPDATE GIVEN ON PATIENT'S STATUS, NEW ORDERS RECEIVED, SEE ORDERS FOR DETAILS. PER HIS ORDERS, KEEP PATIENT NPO, AND HOLD BETAPACE. 2306 REASSESSMENT COMPLETED PER FLOW SHEET, SEE FOR DETAILS. 0100 REPOSITIONED IN BED, ORAL CARE PROVIDED, WILL CONTINUE TO MONITOR. SITTER AT BEDSIDE.
[2019-04-10] VITALS (28 sets, daily range): BP systolic 95–125; BP diastolic 52–80
--- NOTE | 2019-04-10 03:20 | NUR ---
REASSESSMENT COMPLETED PER FLOW SHEET, SEE FOR DETAILS. 0500 REPOSITIONED IN BED, ORAL CARE PROVIDED. SITTER REMAINS AT BEDSIDE. WILL CONTINUE TO MONITOR.
[2019-04-10 06:27] LABS: ALBUMIN 1.9 g/dL (3.4-5.0); ALKALINE PHOSPHATASE 127 U/L (46-116); ALT (SGPT) 141 U/L (10-68); BILIRUBIN - TOTAL 1.29 mg/dL (0.2-1.3); CALCIUM 7.9 mg/dL (8.5-10.1); CARBON DIOXIDE 29.2 mmol/L (21.0-32.0); CHLORIDE - SERUM 106 mmol/L (98-107); CREATININE - SERUM 0.8 mg/dL (0.6-1.3); POTASSIUM - SERUM 3.4 mmol/L (3.5-5.1); PROTEIN - SERUM 5.8 g/dL (6.4-8.2); SODIUM 144 mmol/L (136-145); UREA NITROGEN 30 mg/dL (7-18); eGFR NON AFRICAN AMERICAN > 90 mL/min (90-120)
[2019-04-10 06:35] LABS: CALC OSMOLALITY 293 mosm/kg (275-300); GLUCOSE 124 mg/dL (74-106)
[2019-04-10 06:37] LABS: HEMATOCRIT 31.5 % (42.0-54.0); HEMOGLOBIN 9.5 g/dL (13.5-17.5); MCH 27.1 pg (26.0-34.0); MCHC 30.2 g/dL (31.0-37.0); MCV 89.7 fL (80.0-100.0); MEAN PLATELET VOLUME 11.1 fL (7.4-10.4); PLATELET COUNT 178 10x3/uL (130-400); RBC 3.51 10x6/uL (4.20-6.10); RDW 15.3 % (11.5-14.5); WBC 23.5 10x3/uL (4.8-10.8)
--- NOTE | 2019-04-10 07:00 | NUR ---
PT REPORT RECEIVED FROM DIRECTIONAL BORE OPERATOR NURSE. NO VISIBLE SIGNS OF DISTRESS NOTED. PT IN UNCONTROLLED AFIB. SHIFT ASSESSMENT COMPLETED. WILL CONTINUE TO MONITOR
--- NOTE | 2019-04-10 09:00 | NUR ---
PT RESTING IN BED. ORAL CARE PROVIDED. PT REQUESTS WATER HOWEVER IS NPO UNTIL SWALLOW STUDY IS PERFORMED. WILL CONTINUE TO MONITOR
[2019-04-10 09:29] LABS: ANISOCYTOSIS OCC; EOSINOPHILS 1 % (0-7); LYMPHOCYTES 11 % (15-50); MONOCYTES 12 % (2-11); NEUTROPHILS 72 % (40-80); PLATELET ESTIMATE NORMAL; POLYCHROMASIA OCC
[2019-04-10 09:30] LABS: HYPOCHROMASIA OCC
--- NOTE | 2019-04-10 09:58 | NUR ---
Nutrition Follow-up: Extubated yesterday. Awaiting ST eval. Diet: NPO Wt: 250.8# (253# on 04/08) Last BM: 03/26 per chart Labs noted: WBC 23.5, K+ 3.4, Glu 124, Ca 7.9, Alb 1.9, elev LFTs Meds noted: Colace, Lasix, KCl, D5 1/2NS @ 30, Pepcid -Rec ADAT as medically feasible with consistencies per ST. -RD following.
--- NOTE | 2019-04-10 10:04 | NUR ---
PHARMACY CALLED WITH A QUESTION ABOUT THE VANCOMYCIN DOSING. PAGED DR KO TO GATHER MORE INFO TO RELAY TO PHARMACY ABOUT DOSING AND/OR PEAK TROUGH LABS
--- NOTE | 2019-04-10 11:00 | NUR ---
PT RESTING IN BED. NO VISIBLE SIGNS OF DISTRESS NOTED. REASSESSMENT COMPLETED. WILL CONTINUE TO MONITOR
--- NOTE | 2019-04-10 13:00 | NUR ---
PT RESTING IN BED. NO VISIBLE SIGNS OF DISTRESS NOTED. FAMILY AT BEDSIDE. WILL CONTINUE TO MONITOR
--- NOTE | 2019-04-10 15:00 | NUR ---
PT RESTING IN BED. REASSESSMENT COMPLETED. PT HAD A SMALL BM IN THE BED. CLEANED PT UP AND GAVE A CHG BATH
--- NOTE | 2019-04-10 17:00 | NUR ---
PT STATED THAT HE IS STRESSED OUT. HOWEVER WHEN ASKED WHAT NURSE COULD DO TO HELP HIM DESTRESS HE STATED "NOTHING". WILL CONTINUE TO MONITOR. DRESSING CHANGE TO THE RT CHEST WHERE CHEST TUBES WERE PREVIOUSLY INSERTED.
--- NOTE | 2019-04-10 20:00 | NUR ---
FAMILY AT BEDSIDE, UPDATE PROVIDED AND QUESTIONS ANSWERED. PT/FAMILY DENY NEEDS AT THIS TIME. CALL LIGHT WITHIN PT REACH. CPOC.
--- NOTE | 2019-04-10 21:31 | NUR ---
HS MEDS GIVEN WITH APPLESAUCE, TOLERATED WELL. FRESH WATER TO BEDSIDE. PT REPOSITIONED WITH PROMINENCES BRIDGED. ORAL CARE PROVIDED. CALL LIGHT WITHIN PT REACH, BED ALARM ON, ROOM VISIBLE FROM NURSES STATION. CPOC.
--- NOTE | 2019-04-10 23:00 | NUR ---
REASSESSMENT COMPLETE, SEE FLOWSHEET FOR ALL FINDINGS. PT IRRITABLE AND RESTLESS. PT REPOSITIONED FOR COMFORT WITH PROMINENCES BRIDGED. PT REQUESTS TO LAY FLAT, PT UNABLE TO TOLERATE LAYING FLAT AT THIS TIME, SPO2 WILL NOT MAINTAIN ABOVE 92% UNLESS HOB IS ELEVATED. PT TEACHING COMPLETED AT THIS TIME, PT VERBALIZES UNDERSTANING. BED ALARM ON, CALL LIGHT WITHIN PT REACH, ROOM VISIBLE FROM NURSES STATION. CPOC.
[2019-04-11] VITALS (23 sets, daily range): BP systolic 100–153; BP diastolic 45–95
--- NOTE | 2019-04-11 01:00 | NUR ---
PT REPOSITIONED IN BED, HOB @ 40 DEGREES, SPO2 [id number]. PROMINENCES BRIDGED, PARTIAL LINEN CHANGE. ORAL CARE PROVIDED. PT REMAINS RESTLESS AND AT TIMES AGITATED. VSS. CALL LIGHT WITHIN PT REACH, BED ALARM ON, ROOM VISIBLE FROM NURSES STATION. CPOC.
--- NOTE | 2019-04-11 03:00 | NUR ---
REASSESSMENT COMPLETE. ORAL CARE PROVIDED. PT REPOSITIONED WITH PROMINENCES BRIDGED. CALL LIGHT WITHIN PT REACH, ROOM VISIBLE FROM NURSES STATION, CPOC.
--- NOTE | 2019-04-11 04:00 | NUR ---
COMPLETE CHG BATH AND LINEN CHANGE PROVIDED. RT CHEST DRSG CHANGED. AGUERO CATH CARE PROVIED. ORAL CARE PROVIDED. PROMINENCES BRIDGED. CPOC.
[2019-04-11 06:16] LABS: ALBUMIN 1.9 g/dL (3.4-5.0); ALKALINE PHOSPHATASE 124 U/L (46-116); ALT (SGPT) 120 U/L (10-68); BILIRUBIN - TOTAL 1.05 mg/dL (0.2-1.3); CALC OSMOLALITY 287 mosm/kg (275-300); CALCIUM 7.8 mg/dL (8.5-10.1); CARBON DIOXIDE 27.8 mmol/L (21.0-32.0); CHLORIDE - SERUM 102 mmol/L (98-107); CREATININE - SERUM 0.8 mg/dL (0.6-1.3); GLUCOSE 147 mg/dL (74-106); POTASSIUM - SERUM 3.4 mmol/L (3.5-5.1); PROTEIN - SERUM 6.3 g/dL (6.4-8.2); SODIUM 140 mmol/L (136-145); UREA NITROGEN 29 mg/dL (7-18); eGFR NON AFRICAN AMERICAN > 90 mL/min (90-120)
[2019-04-11 06:33] LABS: HEMATOCRIT 33.3 % (42.0-54.0); HEMOGLOBIN 10.6 g/dL (13.5-17.5); LYMPHOCYTES 2.2 % (15-50); MCH 28.1 pg (26.0-34.0); MCHC 31.8 g/dL (31.0-37.0); MCV 88.3 fL (80.0-100.0); MEAN PLATELET VOLUME 10.8 fL (7.4-10.4); PLATELET COUNT 194 10x3/uL (130-400); RBC 3.77 10x6/uL (4.20-6.10); RDW 14.9 % (11.5-14.5); WBC 30.2 10x3/uL (4.8-10.8)
--- NOTE | 2019-04-11 07:00 | NUR ---
REPORT RECEIVED CARE ASSUMED ASSESSMENT COMPLETE. VSS. PICC DISPLACED WILL CONTACT [facility] RN. WILL CONTINUE TO MONITOR.
--- NOTE | 2019-04-11 09:00 | NUR ---
MEDS GIVEN PER JUL. VSS. KUB COMPLETED. WILL CONTINUE TO MONITOR.
--- NOTE | 2019-04-11 09:18 | NUR ---
DR MARADIAGA NURSE FILI REMOVED CT, ORDERS TO DC EPIDURAL, DR COLÓN NOTIFIED, WILL REMOVE AGUERO AND UP TO CHAIR AFTER EPIDURAL REMOVAL
[2019-04-11 09:49] LABS: POTASSIUM - SERUM 3.6 mmol/L (3.5-5.1); VANCOMYCIN - TROUGH 10.6 ug/mL (10.0-20.0)
--- NOTE | 2019-04-11 09:50 | NUR ---
DAUGHTER AT BEDSIDE. PT HAS SMALL AMOUNT OF NON-FORMED BOWEL MOVEMENT. BED BATH AND LINEN CHANGE COMPLETED. TOLLERATED WELL. ALL QUESTIONS ANSWERED.
--- NOTE | 2019-04-11 10:24 | NUR ---
K RECHECK WAS 3.6. NO FURTHURE INTERVENTION
--- NOTE | 2019-04-11 11:45 | NUR ---
VASCULAR ACCESS NURSE AT BEDSIDE TO PLACE A PICC. WILL CONT TO MONITOR.
--- NOTE | 2019-04-11 12:40 | NUR ---
FAMILY IS AT BEDSIDE. UPDATE GIVEN. FAMILY HAS HIGH ANXIETY REGARDING PATIENT'S CARE. RT CALLED TO BEDSIDE FOR ABG'S PER ORDERS.
--- NOTE | 2019-04-11 13:00 | NUR ---
PT CONVERTED FROM AFIB. CARDIZEM STOPPED. DR JACKSON AT BEDSIDE ORDER TO HOLD UNTIL PT IN FIB. VSS WILL CONTINUE TO MONITOR.
--- NOTE | 2019-04-11 14:48 | NUR ---
REASSESSMENT DONE SEE FLOW SHEET. VSS.
--- NOTE | 2019-04-11 18:00 | NUR ---
1700 IO COLLECTED. PARTIAL BED BATH GIVEN. 1800 DR BROWN UPDATED ON PT STATUS. KUB ORDERED WILL CONTINUE TO MONITOR.
--- NOTE | 2019-04-11 19:30 | NUR ---
PT ASKED FOR DRINK, GIVEN 2 SIPS WATER, PT EMESISED CLEAR AND BROWN FLUID, PAGED DR YANG
--- NOTE | 2019-04-11 19:40 | NUR ---
PLACED NGT VIA RIGHT NARE TO LIWS, PT TOLERATED WELL
--- NOTE | 2019-04-11 19:50 | NUR ---
SPOKE WITH DR YANG, INFORMED OF PT STATUS, ABDOMEN DISTENDED AND TENDER TO PALPATION, EMESISED X2, NGT PLACED TO LIWS, DR YANG AGREED WITH NGT PLACEMENT, WILL LEAVE IN PLACE OVERNIGHT, NO FURTHER ORDERS
--- NOTE | 2019-04-11 22:08 | NUR ---
RESTING QUIETLY WITH EYES CLOSED, SITTER PRESENT IN ROOM
--- NOTE | 2019-04-11 23:30 | NUR ---
PT AWAKE IN BED, QUIET, NGT REMAINS TO LIWS WITH DARK GREEN OUTPUT, SITTER PRESENT
[2019-04-12] VITALS (24 sets, daily range): BP systolic 95–142; BP diastolic 55–83
--- NOTE | 2019-04-12 01:00 | NUR ---
PT REMAINS AWAKE, CONFUSED, REDIRECTED FREQUENTLY, SITTER PRESENT IN ROOM, VITALS STABLE
--- NOTE | 2019-04-12 03:44 | NUR ---
PT BATHED, SMALL LIQUID BM X1, TOLERATED WELL, RESTING QUIETLY, WILL CONT TO MONITOR
[2019-04-12 04:50] LABS: HEMATOCRIT 33.3 % (42.0-54.0); HEMOGLOBIN 10.4 g/dL (13.5-17.5); MCH 27.4 pg (26.0-34.0); MCHC 31.2 g/dL (31.0-37.0); MCV 87.9 fL (80.0-100.0); MEAN PLATELET VOLUME 10.7 fL (7.4-10.4); PLATELET COUNT 263 10x3/uL (130-400); RBC 3.79 10x6/uL (4.20-6.10); RDW 15.4 % (11.5-14.5); WBC 34.4 10x3/uL (4.8-10.8)
[2019-04-12 05:14] LABS: ALBUMIN 1.9 g/dL (3.4-5.0); ALKALINE PHOSPHATASE 134 U/L (46-116); ALT (SGPT) 88 U/L (10-68); BILIRUBIN - TOTAL 0.83 mg/dL (0.2-1.3); CALC OSMOLALITY 295 mosm/kg (275-300); CHLORIDE - SERUM 107 mmol/L (98-107); CREATININE - SERUM 0.8 mg/dL (0.6-1.3); GLUCOSE 126 mg/dL (74-106); POTASSIUM - SERUM 3.2 mmol/L (3.5-5.1); PROTEIN - SERUM 5.4 g/dL (6.4-8.2); SODIUM 144 mmol/L (136-145); UREA NITROGEN 32 mg/dL (7-18); eGFR NON AFRICAN AMERICAN > 90 mL/min (90-120)
[2019-04-12 05:33] LABS: LYMPHOCYTES 4 % (15-50); MONOCYTES 1 % (2-11); NEUTROPHILS 94 % (40-80); PLATELET ESTIMATE NORMAL
--- NOTE | 2019-04-12 05:45 | NUR ---
pt had small liquid bm x1, cleaned per staff, remains confused, sitter present
--- NOTE | 2019-04-12 07:15 | NUR ---
PT REPORT RECEIVED FROM GAME AGENT NURSE. DR BROWN AT BEDSIDE. PT CONFUSED TRYING TO PULL NG TUBE. WILL CONTINUE TO MONITOR
--- NOTE | 2019-04-12 08:44 | NUR ---
FAMILY AT BEDSIDE. DAUGHTER STATED THAT PRE-HOSPITALIZATION PT STATED THAT PT WAS HAVING EPISODES OF INCONTINENCE AND SEXUAL INTERCOURSE WAS PAINFUL TO PT.
--- NOTE | 2019-04-12 08:50 | NUR ---
CALLED CT TO DISCUSS CT ABD PELVIS OF PT. CLARIFIED IF PT NEEDED TO BE NPO FOR PROCEDURE. CT PREFERS PT TO BE NPO FOR BETTER IMAGING. WILL HOLD PT AM MEDS. WILL CONTINUE TO MONITOR
--- NOTE | 2019-04-12 09:00 | NUR ---
PHYSICAL THERAPY AT BEDSIDE. SAT PT UP AT BEDSIDE. PT HAD A BM. WILL CONTINUE TO MONITOR
--- NOTE | 2019-04-12 11:00 | NUR ---
PT RESTING IN BED. PT CONFUSED. BELIEVES HE IS IN [place] AND THE YEAR IS 2000. PT REORIENTED AND REASSESSMENT COMPLETED. WILL CONTINUE TO MONITOR
--- NOTE | 2019-04-12 11:26 | NUR ---
Nutrition Follow-up: Noted NGT to LIWS placed yesterday. RN reports pt to have CT of abd & pelvis today. Diet: Cardiac, Mech Soft Wt: 250.2# Last BM: 04/12 Labs noted: WBC 34.4, K+ 3.2, Glu 126, Ca 8.0, Alb 1.9 Meds noted: Lactulose, Colace, Lasix, D5 1/2NS @ 30, Carafate, Pepcid, KCl -Continue current diet as tolerated with consistencies per ST. -RD available for assistance with nutrition support as needed 2/2 altered GI function. -RD following.
--- NOTE | 2019-04-12 12:15 | NUR ---
PAGED DR KO TO ASK IF PT IS ABLE TO GO TO CT RESPIRATORY [facility]. AWAITING CALL BACK.
--- NOTE | 2019-04-12 12:30 | NUR ---
DR KO CALLED BACK. GAVE THE OKAY FOR THE CT ABDOMEN AND PELVIS. ALSO WANTED TO ADD A CT CHEST NO CONTRAST
--- NOTE | 2019-04-12 13:20 | NUR ---
PT PREPARING TO TRANSFER TO CT FOR CT SCAN. PT HOOKED UP TO PORTABLE MONITOR AND MOBILE OXYGEN TANK. PT TOLERATING WELL. WILL CONTINUE TO MONITOR
--- NOTE | 2019-04-12 13:50 | NUR ---
PT RETURNED TO UNIT. TOLERATED SCAN WELL. NO VISIBLE SIGNS OF DISTRESS NOTED WHILE IN CT. PT HOOKED BACK UP TO MONITOR. WILL CONTINUE TO MONITOR
--- NOTE | 2019-04-12 15:00 | NUR ---
PT UP IN BEDSIDE CHAIR. TOLERATED WELL. REASSESSMENT COMPLETED. NO VISIBLE SIGNS OF DISTRESS NOTED AT THIS TIME. WILL CONTINUE TO MONITOR
--- NOTE | 2019-04-12 16:45 | NUR ---
KELLY ALONG WITH FAMILY ALL IN PT ROOM DISCUSSING PT CARE. WILL CONTINUE TO MONITOR
--- NOTE | 2019-04-12 17:45 | NUR ---
TRIED TO CALL DR BROWN ABOUT PT CT RESULTS, HOWEVER UNABLE TO REACH HIM. WILL RELAY INFORMATION TO ASSOCIATE PROFESSOR PHYSICIAN NURSE.
--- NOTE | 2019-04-12 19:27 | NUR ---
PT AWAKE, CONFUSED, ATTEMPTS TO CLIMB OUT OF BED AT TIMED, SITTER PRESENT, LUNGS CLEAR, O2 40L @ 60% VIA VAPOTHERM, LEFT PICC INTACT WITH IVF INFUSING, NGT VIA RIGHT NARE TO LIWS, ABDOMEN DISTENDED, AGUERO PATENT TO BSD WITH STAT MARLON IN PLACE, VITALS STABLE, WILL CONT TO MONITOR
--- NOTE | 2019-04-12 21:05 | NUR ---
pt converted to UCAF with hr-130's, restarted cardizem gtt at 15 cc/hr,b/p stable, will cont to monitor
--- NOTE | 2019-04-12 23:30 | NUR ---
pt bathed per staff, small watery bm, checked for fecal impaction, removed large stool impaction, pt tolerated well, will cont to monitor
[2019-04-13] VITALS (25 sets, daily range): BP systolic 94–137; BP diastolic 58–110
--- NOTE | 2019-04-13 00:59 | NUR ---
PT AWAKE, REMAINS CONFUSED, UNABLE TO REORIENT, SITTER PRESENT IN ROOM, VITALS STABLE
--- NOTE | 2019-04-13 03:00 | NUR ---
PT REMAINS AWAKE, CONFUSED, REDIRECTED FREQUENTLY, VITALS STABLE, SITTER PRESENT
[2019-04-13 04:47] LABS: BASOPHILS 0.1 % (0-2); EOSINOPHILS 0 % (0-7); HEMATOCRIT 33.6 % (42.0-54.0); HEMOGLOBIN 10.4 g/dL (13.5-17.5); IMMATURE GRANULOCYTES 0.8 % (0-5); LYMPHOCYTES 2.5 % (15-50); MCH 27.6 pg (26.0-34.0); MCV 89.1 fL (80.0-100.0); MEAN PLATELET VOLUME 10.3 fL (7.4-10.4); MONOCYTES 6.3 % (2-11); NEUTROPHILS 90.3 % (40-80); PLATELET COUNT 255 10x3/uL (130-400); RBC 3.77 10x6/uL (4.20-6.10); RDW 15.7 % (11.5-14.5); WBC 30.9 10x3/uL (4.8-10.8)
[2019-04-13 04:56] LABS: CALCIUM 7.7 mg/dL (8.5-10.1); CARBON DIOXIDE 32.2 mmol/L (21.0-32.0); CHLORIDE - SERUM 108 mmol/L (98-107); CREATININE - SERUM 0.7 mg/dL (0.6-1.3); GLUCOSE 107 mg/dL (74-106); MAGNESIUM - SERUM 2.5 mg/dL (1.8-2.4); PHOSPHOROUS 2.7 mg/dL (2.5-4.9); SODIUM 147 mmol/L (136-145); eGFR NON AFRICAN AMERICAN > 90 mL/min (90-120)
[2019-04-13 04:57] LABS: CALC OSMOLALITY 295 mosm/kg (275-300); UREA NITROGEN 23 mg/dL (7-18)
[2019-04-13 04:58] LABS: POTASSIUM - SERUM 2.9 mmol/L (3.5-5.1)
--- NOTE | 2019-04-13 05:00 | NUR ---
PT SLEEPING SOUNDLY WITH NO DISTRESS NOTED, VITALS STABLE
--- NOTE | 2019-04-13 07:45 | NUR ---
PT CONFUSED. ATTEMPTING TO GET OOB. REPOSITIONED AND ATTEMPT TO REORIENT. PT DOES NOT REORIENT AND IS CONTINUING TO ATTEMPT TO GET OOB. BED ALARM ON. BED IN LOWEST POSITION.
--- NOTE | 2019-04-13 10:01 | NUR ---
FAMILY AT BEDSIDE BOTH AND HIS STEP DAUGHTER CARMEN. PT CONFUSED AND ATTEMPTING TO GET OOB. UNABLE TO REORIENT PT. BED ALARM ON. SITTER AT BS. PT SAT UP ON SIDE OF BED. KCL REPLACEMENT PER ELECTROLYTE PROTOCOL INFUSING.
--- NOTE | 2019-04-13 14:45 | NUR ---
KCL DRAWN AND SENT TO LAB. RESULTED AND ELECTROLYTE PROTOCOL USED. PT RESTING QUIETLY.
--- NOTE | 2019-04-13 16:12 | NUR ---
PT INC OF SM AMT BM. BATH AND LINENS CHANGED. PT UP ON SIDE OF BED. ALLOWED PT TO BEAR WT AT BS. PT VERY WEEK AND WAS NOT ABLE TO STAND COMPLETELY UP.
--- NOTE | 2019-04-13 19:30 | NUR ---
PT ALERT, CONFUSED, LUNGS CLEAR, O2 25L @ 35 % VIA VAPOTHERM, NGT TO LIWS, LACI PATENT TO BSD, SXCD'S TO BILAT LOWER LEGS, NO DISTRESS NOTED
--- NOTE | 2019-04-13 21:00 | NUR ---
PT RESTING QUIETLY, VITALS STABLE, SITTER PRESENT
--- NOTE | 2019-04-13 23:00 | NUR ---
PT REMAINS CONFUSED, LOOSE BM X1, CLEANED PER STAFF, WILL CONT TO MONITOR
[2019-04-14] VITALS (24 sets, daily range): BP systolic 97–128; BP diastolic 50–589
--- NOTE | 2019-04-14 01:00 | NUR ---
PT AWAKE, QUIET, REMAINS CONFUSED, VITALS STABLE, NO DISTRESS NOTED
--- NOTE | 2019-04-14 03:00 | NUR ---
PT AWAKE, CONFUSED, AGITATED, WANTS OUT OF BED, PULLING AT TUBES, SITTER PRESENT, REDIRECTS POORLY
--- NOTE | 2019-04-14 05:14 | NUR ---
PT AWAKE, CALM IN BED, REMAINS CONFUSED, NGT TO LIWS, VITALS STABLE, WILL CONT TO MONITOR
[2019-04-14 05:23] LABS: CALC OSMOLALITY 296 mosm/kg (275-300); CALCIUM 7.7 mg/dL (8.5-10.1); CARBON DIOXIDE 29.4 mmol/L (21.0-32.0); CHLORIDE - SERUM 110 mmol/L (98-107); CREATININE - SERUM 0.7 mg/dL (0.6-1.3); GLUCOSE 104 mg/dL (74-106); SODIUM 148 mmol/L (136-145); UREA NITROGEN 21 mg/dL (7-18); eGFR NON AFRICAN AMERICAN > 90 mL/min (90-120)
[2019-04-14 05:24] LABS: POTASSIUM - SERUM 3.7 mmol/L (3.5-5.1)
[2019-04-14 05:26] LABS: HEMATOCRIT 33.8 % (42.0-54.0); HEMOGLOBIN 10.3 g/dL (13.5-17.5); MCH 27.3 pg (26.0-34.0); MCHC 30.5 g/dL (31.0-37.0); MCV 89.7 fL (80.0-100.0); MEAN PLATELET VOLUME 10.3 fL (7.4-10.4); PLATELET COUNT 230 10x3/uL (130-400); RBC 3.77 10x6/uL (4.20-6.10); RDW 15.9 % (11.5-14.5)
[2019-04-14 05:52] LABS: LYMPHOCYTES 6 % (15-50); MONOCYTES 7 % (2-11); NEUTROPHILS 87 % (40-80); PLATELET ESTIMATE NORMAL
--- NOTE | 2019-04-14 07:00 | NUR ---
PARTIAL LINEN CHANGE AND CLEANED PT. PT C/O OF MOUTH BEING DRY, ORAL CARE GIVEN. NO ACUTE NEEDS OR DISTRESS NOTED AT THIS TIME. VSS. WILL CONT TO MONITOR.
[2019-04-14 07:30] LABS: MAGNESIUM - SERUM 2.5 mg/dL (1.8-2.4); PHOSPHOROUS 2.6 mg/dL (2.5-4.9)
--- NOTE | 2019-04-14 08:29 | NUR ---
PT STATES THAT HE NEEDS TO HAVE A BM. ASSISTED WITH BED PAULINO. SM AMT BROWN LOOSE STOOL. BATHED AND LINENS CHANGED.
--- NOTE | 2019-04-14 09:00 | NUR ---
ASSISTED PT TO SIT UP ON SIDE OF BED. PT UNABLE TO HOLD HIMSELF UP, ASSISTED PT TO STAY UP. AFTER 3 MINUTES OF SITTING ON SIDE OF BED PT STATED "I WANT TO LAY BACK DOWN." ASSISTED PT BACK INTO BED, CLEANED PT AND COMPLETE LINEN CHANGE COMPLETED. WILL CONT TO MONITOR.
--- NOTE | 2019-04-14 10:38 | NUR ---
DR ROSARIO HERE.
--- NOTE | 2019-04-14 11:26 | NUR ---
PT AWAKE AND ATTEMPTING TO GET OOB. REDIRECTED PT WITH CALL LIGHT SYSTEM. ASSISTED PT TO SIDE OF BED. ATTEMPTED TO STAND PT. PT UNABLE TO STAND. ASSISTED BACK TO BED AFTER APPROX 10MIN ON SIDE OF BED.
--- NOTE | 2019-04-14 14:53 | NUR ---
pt attempting to get oob. ASSISTED TO SIT ON SIDE OF BED. PT ATTEMPTED TO STAND AND IS NOT ABLE TO BEAR WT.
--- NOTE | 2019-04-14 17:11 | NUR ---
FAMILY HERE. DAUGHTER ASKING TO GIVE PT A DRINK. INSTRUCTED MOUTH CARE ONLY UNTIL AFTER ST NICCI AND MD ORDERS.
--- NOTE | 2019-04-14 20:40 | NUR ---
PT HAS A BRIGHT RED BLOODY BM. CLEANED UP AND LINEN CHANGED. DR ROSARIO PAGED. VSS. DENIES PAIN. 02 4L NC. MOUTH IS DRY. PROVIDED ORAL SWABS TO MOISTEN MOUTH.
--- NOTE | 2019-04-14 21:45 | NUR ---
FAMILY IS GONE HOME FOR THE NIGHT. PT IS AWAKE AND ALERT. CONFUSED TO PLACE AND TIME. FOLLOWS COMMANDS. DR ROSARIO CALLED AND UPDATED ON PT CONDITION. WILL RECHECK LABS IN AM AND MONITOR PT CLOSELY.
[2019-04-15] VITALS (80 sets, daily range): BP systolic 70–130; BP diastolic 20–80
[2019-04-15 03:17] LABS: BASOPHILS 0.1 % (0-2); EOSINOPHILS 0.4 % (0-7); IMMATURE GRANULOCYTES 0.5 % (0-5); LYMPHOCYTES 7.8 % (15-50); MCH 27.2 pg (26.0-34.0); MCHC 30.3 g/dL (31.0-37.0); MCV 89.9 fL (80.0-100.0); MEAN PLATELET VOLUME 10.2 fL (7.4-10.4); NEUTROPHILS 83.2 % (40-80); PLATELET COUNT 229 10x3/uL (130-400); RBC 3.67 10x6/uL (4.20-6.10); RDW 15.9 % (11.5-14.5); WBC 18.2 10x3/uL (4.8-10.8)
[2019-04-15 03:21] LABS: CALC OSMOLALITY 292 mosm/kg (275-300); CALCIUM 8.1 mg/dL (8.5-10.1); CARBON DIOXIDE 31.5 mmol/L (21.0-32.0); CHLORIDE - SERUM 109 mmol/L (98-107); GLUCOSE 132 mg/dL (74-106); MAGNESIUM - SERUM 2.4 mg/dL (1.8-2.4); POTASSIUM - SERUM 3.2 mmol/L (3.5-5.1); SODIUM 144 mmol/L (136-145); UREA NITROGEN 24 mg/dL (7-18); eGFR NON AFRICAN AMERICAN 87 mL/min (90-120)
[2019-04-15 03:23] LABS: CREATININE - SERUM 0.9 mg/dL (0.6-1.3); PHOSPHOROUS 3.5 mg/dL (2.5-4.9)
--- NOTE | 2019-04-15 03:35 | NUR ---
PT IS CONFUSED AND STATES HE CANT BREATH. HE HAS HAD A TOTAL OF 4 BLOODY BMS. AM LAB WAS DRAWN AND THERE IS NO CHANGE IN H&H. BP IS DECREASING. DR ROSARIO AND DR BENEDICT NEELY.
--- NOTE | 2019-04-15 03:45 | NUR ---
DOPAMINE INITIATED AND TITRATED UP TO SUPPORT BP. BOLUS IF IVF STARTED. PT IS VERY LETHARGIC AND HYPOTENSIVE.
--- NOTE | 2019-04-15 04:00 | NUR ---
SPOKE WITH DR ROSARIO AND ANABEL DOMINGUEZ SPOKE WITH DR MCMULLEN. NEW ORDERS RECIEVED.
--- NOTE | 2019-04-15 04:10 | NUR ---
I CALLED THE PTS DAUGHTER AND UPDATED HER ON PT CONDITION.
--- NOTE | 2019-04-15 04:15 | NUR ---
ANABEL DOMINGUEZ SPOKE WITH DR LYNN. INFORMED OF NEW CONSULT AND PTS CONDITION. NEW ORDERS RECIEVED.
[2019-04-15 04:23] LABS: HEMATOCRIT 33.7 % (42.0-54.0); HEMOGLOBIN 10.2 g/dL (13.5-17.5)
--- NOTE | 2019-04-15 04:24 | NUR ---
UPDATE GIVEN TO DR. ROSARIO, NEW ORDERS RECIEVED,
--- NOTE | 2019-04-15 04:28 | NUR ---
CONSULT CALLED TO DR. MADRID, NEW ORDERS RECIEVED,
[2019-04-15 04:41] LABS: INR 1.48 (0.85-1.17); PROTIME 17.3 SECONDS (11.6-15.0)
--- NOTE | 2019-04-15 04:52 | NUR ---
IST UNIT OF PRBC INITIATED. TO GIVE A TOTAL OF 2 PRBC AND 2 FFP.
--- NOTE | 2019-04-15 06:00 | NUR ---
DR BROWN AND DR LYNN AT BEDSIDE TALKING WITH PTS FAMILY. PTS BP IS IMPROVING THE BLOOD PRODUCTS ARE BEING TRANSFUSED AND THE DOPAMINE IS BEING WEANED DOWN.
--- NOTE | 2019-04-15 07:52 | NUR ---
PT RECIEVED 0700 AROUSES TO VOICE, VSS, NO SIGNS OF PAIN, SEE SHIFT ASSESSMENT FOR DETAILS, WENT TO NUC MED APPROX 0715 WITH CHARGE NURSE ON MONITOR
--- NOTE | 2019-04-15 08:27 | NUR ---
PAGED DR JACKSON TO REVIEW MEDS DUE TO CHANGE LAST NIGHT
[2019-04-15 09:28] LABS: HEMATOCRIT 32.9 % (42.0-54.0); HEMOGLOBIN 10.6 g/dL (13.5-17.5)
--- NOTE | 2019-04-15 09:58 | NUR ---
PT BACK FROM NUCLEAR MED AT 0900 ATTACHED TO MONITORS WITH ALARMS SET,BLOODY BM NOTED ON ARRIVAL AND LINENS CHANGED THEN PT STATED HE NEEDED TO HAVE BM, PLACED ON BEDPAN AND HAD LARGE DARK RED JELLY LIKE BM, CLEANED, MEDS GIVEN, ALL TUBINGS CHANGED, FAMILY IN ROOM FOR VISITATION, [place] QUESTIONS, WILL CONTINUE TOMONITOR
--- NOTE | 2019-04-15 10:07 | NUR ---
SPOKE WITH DR BROWN TO NOTIFY OF KCL AND TREATING PER PROTOCOL ALONG WITH THE TWO BMS THIS SHIFT, ORDERS FOR SERIAL H&H
--- NOTE | 2019-04-15 10:17 | NUR ---
NOTIFIED DR MADRID OF NUC MED RESULTS, ORDERS FOR ENEMAS TILL CLEAR AND POSSIBLE SCOPE THIS AFTERNOON
--- NOTE | 2019-04-15 10:50 | NUR ---
ONE WARM WATER ENEMA DONE, PINK WITH JELLY LIKE SUBSTANCE NOTED, LINENS CHANGED, CONSENTS SIGNED BY
[2019-04-15 12:09] LABS: HEMATOCRIT 35.5 % (42.0-54.0); HEMOGLOBIN 11.5 g/dL (13.5-17.5)
--- NOTE | 2019-04-15 13:25 | NUR ---
Nutrition Follow-up: NPO with NGT in place. Noted GI bleed scan done this AM with no evidence of active GI bleeding; possible scope this afternoon. Noted ST eval ordered. Wt: 243.6# (down from 250.2# on 04/12) Last BM: 04/15 Labs noted: K+ 3.2, Ca 8.1, Glu 132 Meds noted: Lactulose, Lasix, D5 1/2NS @ 30 -Rec resume diet when medically feasible. -If unable to advance diet within 24-48 hours, rec may consider alternate nutrition. -Will monitor diet advancement, wt trends, and skin intergrity. -RD following.
--- NOTE | 2019-04-15 14:52 | NUR ---
OT NOTE: PT COMPLETED BED MOB TASKS WITH MOD A X2. PT COMPLETED EOB SITTING WITH MIN A SECONDARY TO DECREASED CORE STRENGTH. PT COMPLETED FACE WASH WITH MIN A. THANK YOU,MAREK WATERS
--- NOTE | 2019-04-15 16:52 | NUR ---
1200 ANOTHER ENEMA DONE, CLEAR 1430 GI LAB HERE FOR COLONOSCOPY [address] BY DR MADRID, DR RENETTA MCMULLEN AND TAMARA NOTIFIED OF FINDINGS, 1650 PTS DAUGHTERS BOTH CAME INTO UNIT AND STATED THEY WANTED TO MAKE PT A NO CODE, CLARIFIED THEIR WISHES, THEY HAVE POA AND THEY STATED PT WOULD HAVE WANTED IT SO. NOTIFIED DR MCMULLEN AND DR BROWN, ORDERS FOR DNR IN COMPUTER, SALES AGENT PEST CONTROL SERVICE NOTIFIED AND IS SPEAKING WITH FAMILY WELL
[2019-04-15 18:20] LABS: HEMATOCRIT 35.9 % (42.0-54.0); HEMOGLOBIN 11.5 g/dL (13.5-17.5)
--- NOTE | 2019-04-15 19:15 | NUR ---
REC'D TO CARE, BEDSIDE REPORT DONE. SEE I&C TECHNICIAN. PT RESTING QUIETLY AT THIS TIME. VSS. NO SIGN OF DISTRESS. IVF INFUSING TO L PICC, DSG C/D/I - SEE FLOWSHEET, WILL TITRATE DOPAMINE GTT PER MD ORDERS. ALARMS ON. C/L IN REACH.
--- NOTE | 2019-04-15 20:47 | NUR ---
FAMILY AT BEDSIDE, UPDATE GIVEN AND QUESTIONS ANSWERED.
--- NOTE | 2019-04-15 23:08 | NUR ---
REASSESSMENT PER FLOWSHEET, NO ACUTE CHANGES. PT REPOSITIONED UP IN BED, ORAL CARE PROVIDED. MINIMAL VERBAL BUT FOLLOWS SIMPLE COMMANDS AND NODS "YES/NO". PT BACK TO BED EASILY, ALARMS ON.
[2019-04-16] VITALS (59 sets, daily range): BP systolic 90–163; BP diastolic 32–92
[2019-04-16 00:59] LABS: HEMOGLOBIN 10.9 g/dL (13.5-17.5)
--- NOTE | 2019-04-16 01:00 | NUR ---
REPOSITIONED UP IN BED, TO R SIDE. NO SIGN OF DISTRESS. PT COOPERATIVE, BACK TO REST EASILY.
--- NOTE | 2019-04-16 03:20 | NUR ---
REASSESSMENT PER FLOWSHEET, NO ACUTE CHANGES. PT REPOSITIONED UP IN BED, ROM AND ORAL CARE DONE. RT AT BEDSIDE FOR RESP TX.
[2019-04-16 04:21] LABS: BASOPHILS 0.1 % (0-2); EOSINOPHILS 1.2 % (0-7); HEMATOCRIT 34.4 % (42.0-54.0); IMMATURE GRANULOCYTES 0.7 % (0-5); LYMPHOCYTES 8.5 % (15-50); MCH 28.2 pg (26.0-34.0); MCV 88.2 fL (80.0-100.0); MEAN PLATELET VOLUME 9.9 fL (7.4-10.4); NEUTROPHILS 82.5 % (40-80); RDW 15.5 % (11.5-14.5)
[2019-04-16 04:31] LABS: APTT 34.8 SECONDS (22.8-39.4); INR 1.42 (0.85-1.17); PLATELET COUNT 156 10x3/uL (130-400); PROTIME 16.8 SECONDS (11.6-15.0)
[2019-04-16 04:45] LABS: ALBUMIN 1.9 g/dL (3.4-5.0); ALKALINE PHOSPHATASE 93 U/L (46-116); ALT (SGPT) 38 U/L (10-68); BILIRUBIN - TOTAL 0.71 mg/dL (0.2-1.3); CALC OSMOLALITY 289 mosm/kg (275-300); CALCIUM 7.9 mg/dL (8.5-10.1); CARBON DIOXIDE 30.6 mmol/L (21.0-32.0); CHLORIDE - SERUM 108 mmol/L (98-107); CREATININE - SERUM 0.9 mg/dL (0.6-1.3); GLUCOSE 128 mg/dL (74-106); MAGNESIUM - SERUM 2.4 mg/dL (1.8-2.4); PHOSPHOROUS 3.3 mg/dL (2.5-4.9); POTASSIUM - SERUM 3.2 mmol/L (3.5-5.1); SODIUM 143 mmol/L (136-145); UREA NITROGEN 20 mg/dL (7-18); eGFR NON AFRICAN AMERICAN 87 mL/min (90-120)
--- NOTE | 2019-04-16 05:00 | NUR ---
COMPLETE BATH AND LINEN CHANGE DONE.
--- NOTE | 2019-04-16 05:45 | NUR ---
FAMILY AT BS, UPDATE GIVEN AND QUESTIONS ANSWERED.
--- NOTE | 2019-04-16 07:00 | NUR ---
RECEIVED BEDSIDE REPORT ON PATIENT AND ASSUMED CARE OF PATIENT. PATIENT RESTING QUIETLY, EASILY AROUSED, STATES YEAR IS 2005, REORIENTED TO 2015, FOLLOWING COMMANDS, DENIES ANY PAIN. VSS. PICC LINE TO LEFT UPPER ARM WITH D51/2NS AT 50 CC/HR, KCL 20 MEQ AT 25 CC/HR AND DOPAMINE AT 6 MCG/KG/MIN. AGUERO CATH IN PLACE WITH YELLOW COLORED UOP. HEAD TO TOE ASSESSMENT COMPLETED.
--- NOTE | 2019-04-16 08:05 | NUR ---
PATIENTS DAUGHTERS AT ROOM UPDATED AND QUESTIONS ANSWERED. PATIENT RESTING QUIETLY, VSS. 2/2 20 MEQ KCL INFUSING.
--- NOTE | 2019-04-16 08:16 | NUR ---
DR. BROWN AT ROOM UPDATE AND EXAMINES PATIENT. SPEAKS AT LENGTH WITH PATIENTS FAMILY. OK TO GIVE ICE CHIPS TO PATIENT. SURGERY CONSULT WITH DR. CISNEROS.
--- NOTE | 2019-04-16 08:45 | NUR ---
DR. BROWN TO CONTINUE TO HOLD PLAVIX AND ASA PENDING OPERATIVE DECISION BY DR. CISNEROS.
--- NOTE | 2019-04-16 09:26 | NUR ---
PATIENT VSS. PT IN ROOM TO SIT PATIENT ON SIDE OF BED.
--- NOTE | 2019-04-16 09:51 | NUR ---
DR. CISNEROS STATES WILL TALK TO FAMILY REGARDING COLECTOMY AND RISKS. NPO FOR POSSIBLE SURGERY TODAY.
--- NOTE | 2019-04-16 11:05 | NUR ---
REASSESSMENT COMPLETED. VSS. TURNED AND REPOSITINED IN BED. ORAL CARE PERFORMED.
[2019-04-16 12:52] LABS: HEMATOCRIT 35.8 % (42.0-54.0); HEMOGLOBIN 11.3 g/dL (13.5-17.5)
--- NOTE | 2019-04-16 12:56 | NUR ---
CONSENTS SIGNED AND PLACED ON CHART FOR SUBTOTAL COLECTOMY, ART LINE PLACEMENT, CVL PLACEMENT AND ANESTHESIA.
--- NOTE | 2019-04-16 13:19 | NUR ---
PREOP MEDS GIVEN AND 12 LEAD ECG OBTAINED.
--- NOTE | 2019-04-16 13:36 | NUR ---
PATIENT TO OR.
--- NOTE | 2019-04-16 14:20 | NUR ---
OT NOTE: PT VERY LETHARGIC TODAY; EOB WITH MOD ASSIST; CGA TO MAINTAIN STATIC SITTING BALANCE. UE/LE A/AROM EXS; PT DID NOT REPORT DIZZINESS BUT DID REPORT FATIGUE. REQUESTED SEVERAL TIMES TO LIE DOWN; BACK TO BED WITH MAX ASSIST. JAMARCUS HENDERSON, OTR/L
--- NOTE | 2019-04-16 14:42 | NUR ---
OT NOTE: PT WAS LETHARGIC. PT COMPLETED BED MOB WITH MOD A. PT COMPLETED EOB SITTING WITH MOD A. PT COMPLETED UE AROM AXS. PT COMPLETED HYGIENE TASK WITH MOD A. THANK YOU, MAREK WATERS
--- NOTE | 2019-04-16 17:40 | NUR ---
PATIENT RECEIVED BACK FROM OR VIA BED ON VENT. VENT SETTINGS: A/C 15, TV 550, PEEP 5, SPO2 100%. ART LINE TO LEFT RADIAL, LEVELED AND ZEROED BP 163/92, DOPAMINE INFUSING AT 10 MCG/KG/MIN, DECREASED TO 6 MCG/KG/MIN. LEFT IJ IN PLACE DRESSING C/D/I. PICC LINE INFUSING DOPAMINE AND D51/2NS AT 50 CC/HR. TEMP 98.6. AGUERO CATH IN PLACE WITH YELLOW UOP. RACHEL DRAIN TO ABDOMEN WITH 50 CC OF BLOODY DRAINAGE EMPTIED AND BULP COMPRESSED. MIDLINE ABDOMINAL INCISION WITH DRESSING C/D/I.
--- NOTE | 2019-04-16 18:10 | NUR ---
VSS. FAMILY BACK TO SEE PATIENT. UPDATED AND QUESTIONS ANSWERED.
--- NOTE | 2019-04-16 19:45 | NUR ---
DR. MCMULLEN AT BEDSIDE, ORDERS TO START FENTANYL INFUSION IF NEEDED FOR PT PAIN.
[2019-04-16 19:49] LABS: HEMATOCRIT 35.9 % (42.0-54.0); HEMOGLOBIN 11.3 g/dL (13.5-17.5)
--- NOTE | 2019-04-16 20:00 | NUR ---
FAMILY AT BEDSIDE, UPDATE PROVIDED AND QUESTIONS ANSWERED. PT RESTING WITH NO S/S OF PAIN OR ACUTE DISTRESS. PT WILL NOD TO YES/NO QUESTIONS. FAMILY DENIES NEEDS AT THIS TIME. ROOM VISIBLE FROM NURSES STATION. CPOC.
--- NOTE | 2019-04-16 21:00 | NUR ---
PT REPOSITIONED WITH PROMINENCES BRIDGED, ORAL CARE PROVIDED. HS MEDS GIVEN. PT NODS "YES" WHEN ASKED IF IN PAIN, FENTANYL INFUSION STARTED PER ORDER. PARTIAL LINEN CHANGE PROVIDED. ROOM VISIBLE FROM NURSES STATION. CPOC.
--- NOTE | 2019-04-16 21:30 | NUR ---
BREVING AT BEDSIDE, UPDATE PROVIDED. ORDERS TO NOTIFY BREVING BEFORE PLAVIX IS RESTARTED. NO FURTHER ORDERS AT THIS TIME.
--- NOTE | 2019-04-16 23:00 | NUR ---
REASSESSMENT COMPLETE, SEE FLOWSHEET FOR ALL FINDINGS. AROUSES TO VOICE, FOLLOWS SIMPLE COMMANDS, NODS TO YES/NO QUESTIONS. PT REPOSITIONED WITH PROMINENCES BRIDGED. PARTIAL LINEN CHANGE PROVIDED. ORAL CARE PROVIED. NO S/S OF PAIN AT THIS TIME. ROOM VISIBLE FROM NURSES STATION. CPOC.
[2019-04-17] VITALS (55 sets, daily range): BP systolic 84–113; BP diastolic 41–75
[2019-04-17 00:57] LABS: HEMATOCRIT 36.9 % (42.0-54.0); HEMOGLOBIN 11.8 g/dL (13.5-17.5)
--- NOTE | 2019-04-17 01:56 | NUR ---
PT REPOSITIONED WITH PROMINENCES BRIDGED. ORAL CARE PROVIDED. WHEN ASKED IF COMFORTABLE, PT NODS YES. LT ABD ROM COMPRESSED. ROOM VISIBLE FROM NURSES STATION. CPOC.
--- NOTE | 2019-04-17 03:00 | NUR ---
REASSESSMENT COMPLETE, SEE FLOWSHEET FOR ALL FINDINGS. PT REPOSITIONED WITH PROMINENCES BRIDGED. ORAL CARE COMPLETED. CPOC.
--- NOTE | 2019-04-17 05:30 | NUR ---
COMPLETE CHG BATH AND LINEN CHANGE PROVIDED.
[2019-04-17 06:51] LABS: INR 1.35 (0.85-1.17); PROTIME 16.6 SECONDS (11.6-15.0)
[2019-04-17 07:03] LABS: BASOPHILS 0.1 % (0-2); EOSINOPHILS 0.4 % (0-7); HEMATOCRIT 35.8 % (42.0-54.0); HEMOGLOBIN 11.3 g/dL (13.5-17.5); LYMPHOCYTES 5.1 % (15-50); MCH 28.3 pg (26.0-34.0); MCHC 31.6 g/dL (31.0-37.0); MCV 89.5 fL (80.0-100.0); MEAN PLATELET VOLUME 10.1 fL (7.4-10.4); MONOCYTES 4.8 % (2-11); NEUTROPHILS 88.6 % (40-80); RDW 15.3 % (11.5-14.5)
[2019-04-17 07:04] LABS: PLATELET COUNT 236 10x3/uL (130-400); WBC 18.8 10x3/uL (4.8-10.8)
[2019-04-17 07:09] LABS: ALBUMIN 1.8 g/dL (3.4-5.0); ANION GAP 11.2 mmol/L (8-16); BILIRUBIN - TOTAL 0.83 mg/dL (0.2-1.3); CALCIUM 7.5 mg/dL (8.5-10.1); CARBON DIOXIDE 26.8 mmol/L (21.0-32.0); MAGNESIUM - SERUM 2.2 mg/dL (1.8-2.4); PROTEIN - SERUM 5.3 g/dL (6.4-8.2)
[2019-04-17 07:12] LABS: PHOSPHOROUS 4.6 mg/dL (2.5-4.9)
[2019-04-17 07:13] LABS: CREATININE - SERUM 1.3 mg/dL (0.6-1.3); TROPONIN-I 0.359 ng/mL (0.000-0.060)
[2019-04-17 07:21] LABS: APTT 28.6 SECONDS (22.8-39.4)
--- NOTE | 2019-04-17 08:35 | NUR ---
SPOKE WITH ABOUT HEART RATE. WAS TOLD TO GO AHEAD AND START PLAVIX BACK AND GIVE THE BETAPACE. WILL CONTACT ABOUT STARTING THE PLAVIX BACK.
--- NOTE | 2019-04-17 08:50 | NUR ---
SPOKE WITH REVIEWED LABS WILL START THE PLAVIX BACK TODAY.
--- NOTE | 2019-04-17 11:05 | OP ---
PATIENT NAME: BRISEIDA NOGUEIRA MEDICAL RECORD: [id number] :43 LOCATION:[facility].CV02 ADMISSION DATE:03/27/19 SURGEON: SHIKHA CISNEROS MD DATE OF OPERATION: 04/16/2019 PREOPERATIVE DIAGNOSES: Lower gastrointestinal bleeding in a person who requires anticoagulation with Plavix due to the recent myocardial infarction. POSTOPERATIVE DIAGNOSES: Lower gastrointestinal bleeding in a person who requires anticoagulation with Plavix due to the recent myocardial infarction. PROCEDURE: Total colectomy with ileorectal anastomosis. SURGEON: Shikha Cisneros MD MANAGER PIPELINE: None. BLOOD LOSS: About 100 cc. ANESTHESIA: General. DRAINS: Times 1 (19-Portuguese fully fluted closed suction drainage system). This is an indicator drain to see if the patient is bleeding. OPERATIVE COURSE: The patient was conveyed to the operating room urgently on . General anesthesia was induced by anesthesia staff. The abdomen was sterilely prepped and draped. A left paramedian incision was accomplished. The peritoneal cavity was entered sharply. An Uli retractor was placed. An abdominal survey was undertaken. A window was created in the mesentery of the distal ileum. I stapled across the ileum here with a FRANK-75 stapler. I grasped the right colon and retracted it medially and incised along the right white line of Toldt. I took down the retroperitoneal attachments to the hepatic flexure. I then took the Super Jaw EnSeal device and started taking some of the omentum off the transverse colon. I excised some of this omentum with the Super Jaw EnSeal device. I then went around to the left side. I incised along the left white line of Toldt. I entered the left inner sigmoid fossa. I identified the left ureter, which was retracted during the procedure and was undamaged. I took down the retroperitoneal attachments to the splenic flexure, freeing it up as well. I then began to divide the mesentery. I hugged the colon as this was not a cancer operation. I took down the mesentery of the ascending colon with the Super Jaw EnSeal device. I then took down the mesentery of the transverse colon with the Super Jaw EnSeal device. I took down the mesentery of the descending colon with the Super Jaw EnSeal device. At no time was there any injury to the pancreas, stomach or spleen. I then divided the large bowel at the junction of the sigmoid colon and rectum. The specimen was then sent to pathology. I then brought the ileum and the rectum into apposition side by side suturing OPERATIVE REPORT [id number] BRISEIDA NOGUEIRA GORDON their antimesenteric borders together. A small enterotomy and small proctotomy were accomplished. Anvils of the FRANK-75 stapler were advanced and then fired. The resulting enterorectal defect was then closed with single firing of the TA 60 stapler. There was no twisting of the mesentery. I closed the mesenteric rent with a running #1 Vicryl. I irrigated with normal saline as well as some hydrogen peroxide. A 19-Portuguese fully fluted drain was brought through a stab incision in the left lower quadrant and it was placed up under the left diaphragm. The drain was sutured to skin with a 4-0 nylon. There was no indication of any bleeding. The midline fascia was closed with running looped #1 PDS from the cephalad and caudad directions. The subdermis was approximated with interrupted 3-0 Vicryls. The dermis was approximated with a running 3-0 Vicryl suture. Sterile dressings were applied. The patient was then conveyed back to the intensive care unit while being mechanically ventilated. TRANSINT:[id number] Voice Confirmation ID: [id number] DOCUMENT ID: [id number] SHIKHA CISNEROS MD at 1105 CC: ADALBERTO MCMULLEN MD, FARHANA BROWN, TONY LEO MD and [id number] DICTATION DATE: 04/16/192121 CABLEMAN: 04/17/19 0014 ADM IN [facility] [address] [id number]
[2019-04-17 11:11] LABS: ANISOCYTOSIS OCC; PLATELET ESTIMATE NORMAL; ROULEAUX OCC
--- NOTE | 2019-04-17 11:45 | NUR ---
AT BED SIDE SEDATION TURNED OFF WILL START WEANING PROCESS.
[2019-04-17 12:47] LABS: HEMATOCRIT 33.8 % (42.0-54.0); HEMOGLOBIN 10.5 g/dL (13.5-17.5)
[2019-04-17 13:17] LABS: ALBUMIN 1.7 g/dL (3.4-5.0); ANION GAP 9.8 mmol/L (8-16); BILIRUBIN - TOTAL 0.74 mg/dL (0.2-1.3); CALCIUM 7.6 mg/dL (8.5-10.1); CARBON DIOXIDE 26.1 mmol/L (21.0-32.0); CREATININE - SERUM 1.3 mg/dL (0.6-1.3); MAGNESIUM - SERUM 2.1 mg/dL (1.8-2.4); POTASSIUM - SERUM 3.9 mmol/L (3.5-5.1); PROTEIN - SERUM 5.5 g/dL (6.4-8.2)
--- NOTE | 2019-04-17 13:35 | NUR ---
Nutrition Follow-up: POD 1 total colectomy. Intubated but weaning. Per surgery, NGT out in the next day or two; ST eval needed prior to PO intake. Diet: NPO Wt: 240.5# (250.2# on 04/12 - noted diuresing) Last BM: 04/17 Labs noted: K+ 4.0, Glu 154, Ca 7.5, Alb 1.8 Meds noted: D5 1/2NS @ 50, Lactulose, Nystatin, Lasix *Rec Procalamine @ 100 mL/hr (provides 588 kcal, 72 g protein) as medically feasible until able to advance diet. If more long-term PN needed, RD available for assistance with TPN as needed. -RD following.
--- NOTE | 2019-04-17 14:04 | NUR ---
PT WAS PUT ON CPAP HEART RATE WENT TO THE 170'S WAS NOTIFIED WAS TOLD TO PUT BACK ON ASSIST CONTROL AND TURN ON SEDATION. DR.TAUTH NEELY. RECIEVED NEW ORDERS OF AMIO BOLUS AND PLAVIX 75MG GIVEN. AFTER BOLUSE PT CONVERTED BACK TO NORMAL SINUS OF A RATE IN THE 90'S. WILL CONTINUE TO MONITOR THE PT,.
--- NOTE | 2019-04-17 16:15 | NUR ---
PAGED ON A-LINE NOT BEING ACCURATE AND HE SAID TO LEAVE IT ALSO UPDATED AND WILL CONTINUE TO MONITOR.
[2019-04-17 18:22] LABS: HEMATOCRIT 32.2 % (42.0-54.0); HEMOGLOBIN 10.3 g/dL (13.5-17.5)
--- NOTE | 2019-04-17 23:00 | NUR ---
REASSESSMENT COMPLETE, NO NEW CHANGES AT THIS TIME. PT REPOSITIONED WITH PROMINENCES BRIDGED. ORAL CARE PROVIDED. VSS, NO S/S OF PAIN. ROOM VISIBLE FROM NURSES STATION. CPOC.
[2019-04-18] VITALS (62 sets, daily range): BP systolic 89–176; BP diastolic 44–70; Ht 182.9 cm; Wt 103.2 kg
--- NOTE | 2019-04-18 01:00 | NUR ---
PT REPOSITIONED FOR COMFORT, PROMINENCES BRIDGED. PARTIAL LINEN CHANGE PROVIDED. ORAL CARE PROVIDED. AGUERO CATH CARE PROVIDED. ROOM VISIBLE FROM NURSES STATION. CPOC.
--- NOTE | 2019-04-18 03:00 | NUR ---
PT REPOSITIONED WITH PROMINENCES BRIDGED. ORAL CARE PROVIDED. AFEBRILE. AROUSES TO VOICE AND FOLLOWS COMMANDS. NO S/S OF PAIN AT THIS TIME. ROOM VISIBLE FROM NURSES STATION. CPOC.
--- NOTE | 2019-04-18 03:50 | NUR ---
COMPLETE CHG BATH AND LINEN CHANGE PROVIDED. ORAL CARE COMLPETED. PROMINENCES BRIDGED.
[2019-04-18 06:02] LABS: BASOPHILS 0.1 % (0-2); EOSINOPHILS 1.4 % (0-7); HEMATOCRIT 29.6 % (42.0-54.0); HEMOGLOBIN 9.1 g/dL (13.5-17.5); IMMATURE GRANULOCYTES 0.9 % (0-5); LYMPHOCYTES 6.1 % (15-50); MCH 27.7 pg (26.0-34.0); MCHC 30.7 g/dL (31.0-37.0); MEAN PLATELET VOLUME 9.8 fL (7.4-10.4); MONOCYTES 6.7 % (2-11); NEUTROPHILS 84.8 % (40-80); RBC 3.29 10x6/uL (4.20-6.10); WBC 17.4 10x3/uL (4.8-10.8)
[2019-04-18 06:09] LABS: PLATELET COUNT 182 10x3/uL (130-400)
[2019-04-18 06:28] LABS: PROTIME 18.9 SECONDS (11.6-15.0)
[2019-04-18 06:29] LABS: APTT 35.4 SECONDS (22.8-39.4); INR 1.65 (0.85-1.17)
[2019-04-18 06:44] LABS: ALBUMIN 1.6 g/dL (3.4-5.0); ALKALINE PHOSPHATASE 73 U/L (46-116); BILIRUBIN - TOTAL 0.46 mg/dL (0.2-1.3); CALC OSMOLALITY 280 mosm/kg (275-300); CALCIUM 7.3 mg/dL (8.5-10.1); CARBON DIOXIDE 28.9 mmol/L (21.0-32.0); CHLORIDE - SERUM 105 mmol/L (98-107); GLUCOSE 134 mg/dL (74-106); POTASSIUM - SERUM 3.5 mmol/L (3.5-5.1); PROTEIN - SERUM 4.9 g/dL (6.4-8.2); SODIUM 138 mmol/L (136-145); UREA NITROGEN 21 mg/dL (7-18); eGFR NON AFRICAN AMERICAN 77 mL/min (90-120)
[2019-04-18 06:48] LABS: PHOSPHOROUS 3.2 mg/dL (2.5-4.9)
--- NOTE | 2019-04-18 07:00 | NUR ---
RECEIVED BEDSIDE REPORT ON PATIENT AND ASSUMED CARE. PATEINT SEDATED ON VENT, RESPONDS TO VERBAL STIMULI, FOLLOWS SIMPLE COMMANDS, VSS. BP 99/50(67) VIA ART LINE, LEVELED AND ZEROED, CVP LEVELED AND ZEROED - 10. LEFT IJ, WITH DRESSING C/D/I, INFUSING W/O DIFFICULTY, CARDIZEM AT 15 MG/HR (12 ML/HR), DOPAMINE AT 8 MCG/KG/MIN (36.9 ML/HR), D51/2NS AT 50 ML/HR AND FENTANYL AT 175 MCG/HR (3.5 ML/HR). LEFT UPPER ARM PICC, NSL, FLUSHES EASILY. LEFT RADIAL ART LINE WITH DRESSING C/D/I. BBS - CLEAR AND EQUAL ON VENT, TV 550, A/C 15, PEEP 8 AND FIO2 100%. SCDS IN PLACE. MIDLINE ABDOMINAL DRESSING C/D/I WITH SMALL BRUISING NOTED, AREA MARKED. RACHEL DRAIN WITH 70 CC BLOODY DRAINAGE EMPTIED, BULB COMPRESSED. PATIENT TURNED AND REPOSITIONED IN BED. AGUERO CATH IN PLACE WITH YELLOW UOP NOTED.
--- NOTE | 2019-04-18 07:00 | NUR ---
BREVING GIVEN UPDATE, NO NEW ORDERS AT THIS TIME.
[2019-04-18 07:07] LABS: ALT (SGPT) 26 U/L (10-68)
--- NOTE | 2019-04-18 07:50 | NUR ---
PATIENT INCONTINENT LARGE BRIGHT RED BLOODY STOOL, LOOSE WITH SOME CLOTS NOTED. DR. CISNEROS AND DR BROWN CONTACTED. DR. BROWN ORDERS 2 UNITS OF PRBCS TO BE INFUSED. PATIENT TYPE AND SCREEN ORDERED AND BLOOD DRAWN AND SENT TO LAB. PATIENT CLEANED AND REPOSITIONED IN BED. VSS. DAUGHTER NOTIFIED OF BLEEDING.
--- NOTE | 2019-04-18 08:00 | NUR ---
DR. BROWN AT ROOM, UPDATED AND EXAMINES PATIENT. TO HOLD PLAVIX DUE TO BLEEDING BRIGHT RED BLOOD FROM RECTUM. TO TRANSFUSE 2 UNITS PRBCS.
--- NOTE | 2019-04-18 08:40 | NUR ---
MORNING MEDS GIVEN PER JUL, PLAVIX HELD PER DR. BROWN AND DR. CISNEROS DUE TO PATIENT HAVING BRIGHT RED BLOOD PER RECTUM. VSS. PATIENT TURNED AND REPOSTIONED IN BED.
--- NOTE | 2019-04-18 09:50 | NUR ---
1/2 PRBCS STARTED INFUSING, VSS.
--- NOTE | 2019-04-18 10:24 | NUR ---
PRBCS INFUSING WITH NO S/S OF TRANSFUSION REACTION. VSS. PATIENT RESTING COMFORTABLY.
--- NOTE | 2019-04-18 10:36 | NUR ---
DR MCMULLEN AND DR MADRID ADVISED OF BLEEDING PER RECTUM AND UPDATED ON PATIENT STATUS. DR. JACKSON PAGED AWAITING CALL BACK.
--- NOTE | 2019-04-18 10:45 | NUR ---
DR. BRAY RETURNED PAGE AND NOTIFIED OF BLEEDING AND PLAVIX BEING HELD.
--- NOTE | 2019-04-18 10:47 | NUR ---
REASSESSMENT COMPLETED. VSS. PRBC INFUSING W/O DIFFICULTY, NO S/S OF TRANSFUSION REACTION. PATIENT TURNED AND REPOSITIONED IN BED. ART LINE AND CVP LEVELED AND ZEROED.
--- NOTE | 2019-04-18 11:50 | NUR ---
1/2 UNITS PRBC INFUSION COMPLETED AT 1140, 2/2 UNITS OF PRBC STARTED AT 1150. NO S/S OF TRANSFUSION REACTION. VSS.
--- NOTE | 2019-04-18 13:04 | NUR ---
PATIENT TURNED AND REPOSITIONED IN BED. VSS. 2/2 UNITS PRBCS INFUSING WITH NO S/S OF TRANSFUSION REACTION. PATIENT WITH FAMILY AT BEDSIDE, UPDATED AND QUESTIONS ANSWERED.
--- NOTE | 2019-04-18 13:14 | NUR ---
DR. MCMULLEN AT ROOM, UPDATED AND EXAMINES PATIENT. DOES NOT WANT TO ATTEMPT A WEANING TRAIL TODAY DUE TO BLEEDING. VSS. ANSWERS PATEINTS FAMILY MEMBER QUESTIONS.
--- NOTE | 2019-04-18 13:46 | NUR ---
2/2 UNITS PRBC INFUSION COMPLETED. VSS. NO S/S OF TRANSFUSION REACTION.
--- NOTE | 2019-04-18 14:11 | NUR ---
PATIENTS HAT PARTS CUTTER MACHINE AT ROOM AND PRAYS WITH PATIENT. VSS.
--- NOTE | 2019-04-18 15:05 | NUR ---
REASSESSMENT COMPLETED. ART AND CVP LEVELED AND ZEROED. PATIENT TURNED AND REPOSTIONED IN BED. VSS.
--- NOTE | 2019-04-18 16:13 | NUR ---
PATIENT VSS, STABLE. MEDS GIVEN PER MAR. FAMILY AT ROOM UPDATED AND QUESTIONS ANSWERED.
[2019-04-18 17:09] LABS: HEMOGLOBIN 11.3 g/dL (13.5-17.5)
--- NOTE | 2019-04-18 17:15 | NUR ---
PATIENT TURNED AND REPOSITIONED IN BED. VSS. DAUGHTER AT BEDSIDE, UPDATED AND QUESTIONS ANSWERED.
--- NOTE | 2019-04-18 18:07 | NUR ---
DR. MADRID AND DR. CISNEROS AT ROOM UPDATED AND EXAMINE PATIENT. VSS.
--- NOTE | 2019-04-18 19:10 | NUR ---
Received patient sedated in bed with eyes closed, assessment completed per flowsheet. Patient follows command weakly/opens eyes to voice. NGT L nare to LIWS with small drainage noted, ETT 8.0 secured. S1/S2 noted NSR with regular. PVC on telemetry. Vent settings A/C R-15 V-550 50% P-10 with O2 sat 97%, lung sounds clear bilateral upper and mid with diminished lower. Midline abdomen incision dressing CDI with bowel sounds hypoactive x4, L lower abdomen ROM x1 with small serosanguinous drainage. Billingsley secured, clear yellow urine noted. L radial A-line with good waveform, wrist protector in use. All pulses palpable with cap refill < 3 sec, skin warm/dry. SUPERVISING FIRE MARSHAL in use for pain mgmt, repositioned for comfort. No further needs at this time, see flowsheet for details. All VSS and will continue to monitor.
--- NOTE | 2019-04-18 21:10 | NUR ---
Spoke to Ericka ([id number]) via phone, updated on current status. Discussed current status/medications with all questions answered to satisfaction, no further needs. Oral care/suctioning proivded, repositioned for comfort. Patient awakens to stimuli, returns to resting easily. No further needs and will continue to monitor.
--- NOTE | 2019-04-18 22:45 | NUR ---
Reassessment completed per flowsheet, no changes noted from previous assessment. S1/S2 noted NSR with frequent PVC on telemetry, regular. Vent settings unchanged with O2 sat 99%, lung sounds clear bilateral upper and mid with diminished lower. Midline abdomen incision dressing CDI, L lower ROM x1 with small serosanguinous drainage. L radial A-line with good wavefor, all pulses palpable. Oral care/suctioning provided, repositioned for comfort. No further needs at this time, see flowsheet for details. All VSS and will continue to monitor.
[2019-04-19] VITALS (74 sets, daily range): BP systolic 90–124; BP diastolic 38–64
--- NOTE | 2019-04-19 01:00 | NUR ---
Patient restless in bed with eyes closed on vent, attempted to calm patient with limited success. Shakes head negative to deny pain, repositioned for comfort. No further needs and will continue to monitor.
--- NOTE | 2019-04-19 02:45 | NUR ---
Reassessment completed per flowsheet, no changes noted from previous assessment. Patient nods appropriately to questions/weakly follows instructions. S1/S2 noted NSR with frequent PVC on telemetry, regular. Vent settings unchanged with O2 sat 97%, lung sounds clear bilateral upper and mid with diminished lower. L lower abdomen ROM x1 with small serosanguinous drainage, L radial A-line with good waveform. All pulses palpable with cap refill < 3 sec, skin cool/dry. Repositioned for comfort, oral care/suctioning provided. See flowsheet for details, all VSS and will continue to monitor.
--- NOTE | 2019-04-19 05:00 | NUR ---
Patient laying in bed with eyes open on vent, slight restlessness noted. Attempted to calm patient with limited success, patient returned to resting. Oral care/suctioning provided, repositioned for comfort. All VSS and will continue to monitor.
[2019-04-19 05:26] LABS: BASOPHILS 0.1 % (0-2); EOSINOPHILS 1.7 % (0-7); HEMOGLOBIN 10.8 g/dL (13.5-17.5); LYMPHOCYTES 6.6 % (15-50); MCHC 31.8 g/dL (31.0-37.0); MCV 88.1 fL (80.0-100.0); MEAN PLATELET VOLUME 10.2 fL (7.4-10.4); MONOCYTES 7.3 % (2-11); NEUTROPHILS 83.3 % (40-80); PLATELET COUNT 151 10x3/uL (130-400); RBC 3.86 10x6/uL (4.20-6.10); RDW 14.9 % (11.5-14.5)
[2019-04-19 05:41] LABS: APTT 41.9 SECONDS (22.8-39.4); INR 1.62 (0.85-1.17); PROTIME 18.6 SECONDS (11.6-15.0)
[2019-04-19 06:00] LABS: ALBUMIN 1.5 g/dL (3.4-5.0); ALKALINE PHOSPHATASE 68 U/L (46-116); ALT (SGPT) 24 U/L (10-68); BILIRUBIN - TOTAL 0.56 mg/dL (0.2-1.3); CALC OSMOLALITY 272 mosm/kg (275-300); CALCIUM 7.5 mg/dL (8.5-10.1); CARBON DIOXIDE 30.2 mmol/L (21.0-32.0); CHLORIDE - SERUM 103 mmol/L (98-107); CREATININE - SERUM 0.9 mg/dL (0.6-1.3); GLUCOSE 110 mg/dL (74-106); MAGNESIUM - SERUM 1.9 mg/dL (1.8-2.4); PHOSPHOROUS 2.5 mg/dL (2.5-4.9); POTASSIUM - SERUM 3.7 mmol/L (3.5-5.1); PROTEIN - SERUM 5.5 g/dL (6.4-8.2); SODIUM 135 mmol/L (136-145); UREA NITROGEN 17 mg/dL (7-18); eGFR NON AFRICAN AMERICAN 87 mL/min (90-120)
[2019-04-19 06:01] LABS: TROPONIN-I 0.247 ng/mL (0.000-0.060)
--- NOTE | 2019-04-19 07:00 | NUR ---
RECEIVED BEDSIDE REPORT ON PATIENT AND ASSUMED CARE. PATIENT RESTLESS IN BED, FOLLOWING COMMANDS, VSS. LEFT IJ DRESSING C/D/I INFUSING W/O DIFFICULTY. DOPAMINE AT 7 MCG/KG/MIN (32.3 ML/HR), D51/2NS AT 50 ML/HR, FENTANYL AT 175 MCG/HR (3.5 ML/HR), AND CARDIZEM AT 15 MG/HR (12 CC/HR). CM - SR WITH FREQUENT PVCS. CVP - 8, CVP AND ART LINE LEVELED AND ZEROED. PATIENT WITH SMEAR OF A STOOL WITH SOME BLOOD NOTED. AGUERO CATH IN PLACE WITH YELLOW UOP. DRESSING TO ABDOMEN C/D/I, ROM DRAIN WITH SEROSANGENOUS DRAINAGE NOTED, 40 CC EMPTIED, BULB COMPRESSED. SCDS AND SHIV HOSE IN PLACE. NG TUBE TO LEFT NARE, PLACEMENT CHECKED BY ASCULTATION, GREEN BILIOUS OUT PUT 50 CC NOTED. PATIENT TURNED AND REPOSITIONED IN BED. CLEANED AND NEW LINENS PLACED.
--- NOTE | 2019-04-19 08:05 | NUR ---
MORNING MEDS GIVEN PER JUL. PATIENT RESTING QUIETLY, VSS. NGT CLAMPED FOR MORNING MEDS.
--- NOTE | 2019-04-19 08:53 | NUR ---
[facility]. TURNED AND REPOSITIONED IN BED.
--- NOTE | 2019-04-19 08:58 | NUR ---
SPOKE TO CARMEN, UPDATED AND ANSWERED QUESTIONS.
--- NOTE | 2019-04-19 09:40 | NUR ---
SPOKE TO DR BLAYNE CHONG TO RESTART PLAVIX AT 75 MG AND TO CONSULT DIETARY TO START TPN.
--- NOTE | 2019-04-19 10:11 | NUR ---
DR. JACKSON AT ROOM UPDATED AND EXAMINED PATIENT.
--- NOTE | 2019-04-19 10:51 | NUR ---
PATIENT PLACED ON SIMV PEEP 10, RATE 15, TV 550, FIO2 50% PER RT. REASSESSMENT COMPLETED. PATIENT RESTING QUIELTY, TURNED AND REPOSTIONED IN BED.
--- NOTE | 2019-04-19 12:25 | NUR ---
PATIENTS AT ROOM UPDATED AND QUESTIONS ANSWERED. VSS.
--- NOTE | 2019-04-19 12:55 | NUR ---
PATIENT TURNED AND REPOSITIONED IN BED. VSS.
--- NOTE | 2019-04-19 12:59 | NUR ---
NUTRITION F/U TPN ORDERS PER MD CONSULT. SPOKE WITH NURSING. WILL ADD INTRALIPIDS IF TRIGLYCERIDES ARE WNL. ORDER AM LABS AND ADJUST TPN NEEDED. NURSING MESSAGE TO DECREASE IV FLUIDS WHEN TPN STARTS. RD FOLLOWING
--- NOTE | 2019-04-19 13:11 | NUR ---
DR. MCMULLEN AT ROOM UPDATED AND EXAMINES PATIENT. PLACES PATIENT BACK ON A/C, DECREASES PEEP TO 7. WILL POSSIBLY ATTEMPT CPAP TRAIL FOR 1 HOUR LATER THIS AFTERNOON.
--- NOTE | 2019-04-19 13:57 | NUR ---
DR. SHARMA AT ROOM UPDATED AND EXAMINES PATIENT.
--- NOTE | 2019-04-19 14:46 | NUR ---
REASSESSMENT COMPLETED. VSS. PATIENT TURNED AND REPOSITIONED IN BED. ART LINE AND CVP LEVELED AND ZEREOD.
--- NOTE | 2019-04-19 19:00 | NUR ---
REPORT RECEIVED. RECEIVED PATIENT IN BED, SEDATED/INTUBATED. ETT INTACT/SECURE/PATENT CONNECTED TO [facility] VENT WITH SETTINGS ORDERED. MONITORS CONNECTED TO PATIENT WITH ALARMS SET. VSS. SHIFT ASSESSMENT COMPLETED PER FLOW SHEET WITH NO ACUTE DISTRESS OBSERVED. ORAL CARE GIVEN. HOB UP 30 DEGREES. TURNED AND REPOSITIONED FOR COMFORT.
--- NOTE | 2019-04-19 21:00 | NUR ---
FAMILY AT BEDSIDE. QUESTIONS ANSWERED/TEACHING PROVIDED. PATIENT RESTLESS/AGITATED. SEDATION TITRATED PER ORDER. VSS.
--- NOTE | 2019-04-19 23:00 | NUR ---
REASSESSMENT COMPLETED PER FLOW SHEET WITH NO ACUTE DISTRESS OBSERVED. VSS
[2019-04-20] VITALS (59 sets, daily range): BP systolic 96–153; BP diastolic 47–100
--- NOTE | 2019-04-20 01:00 | NUR ---
VSS. NO ACUTE DISTRESS OBSERVED. HOB UP 30 DEGREES. ORAL CARE PERFORMED. TURNED AND POSITIONED FOR COMFORT.
--- NOTE | 2019-04-20 03:00 | NUR ---
REASSESSMENT COMPLETED PER FLOW SHEET WITH NO ACUTE DISTRESS OBSERVED. VSS. HOB UP 30 DEGREES. ORAL CARE PERFORMED. TURNED AND POSTIONED FOR COMFORT.
--- NOTE | 2019-04-20 05:00 | NUR ---
CHG BATH GIVEN. ORAL CARE GIVEN. TURNED AND REPOSITIONED FOR COMFORT. HOB UP 30 DEGREES. VSS. NO ETT INTACT/SECURE AND PATENT. NGT INTACT/SECURE AND PATENT. NO ACUTE DISTRESS OBSERVED AT PRESENT
[2019-04-20 05:57] LABS: HEMATOCRIT 32.2 % (42.0-54.0); HEMOGLOBIN 10.3 g/dL (13.5-17.5); MCH 28.3 pg (26.0-34.0); MCV 88.5 fL (80.0-100.0); MEAN PLATELET VOLUME 9.7 fL (7.4-10.4); PLATELET COUNT 160 10x3/uL (130-400); RBC 3.64 10x6/uL (4.20-6.10); RDW 14.9 % (11.5-14.5)
[2019-04-20 06:01] LABS: WBC 10.5 10x3/uL (4.8-10.8)
[2019-04-20 06:28] LABS: LYMPHOCYTES 6 % (15-50); MONOCYTES 1 % (2-11); NEUTROPHILS 93 % (40-80); PLATELET ESTIMATE NORMAL
[2019-04-20 06:44] LABS: ALBUMIN 1.5 g/dL (3.4-5.0); ALKALINE PHOSPHATASE 67 U/L (46-116); ALT (SGPT) 21 U/L (10-68); BILIRUBIN - TOTAL 0.44 mg/dL (0.2-1.3); CALC OSMOLALITY 270 mosm/kg (275-300); CALCIUM 7.4 mg/dL (8.5-10.1); CARBON DIOXIDE 30.2 mmol/L (21.0-32.0); CHLORIDE - SERUM 102 mmol/L (98-107); CREATININE - SERUM 0.8 mg/dL (0.6-1.3); GLUCOSE 109 mg/dL (74-106); MAGNESIUM - SERUM 1.9 mg/dL (1.8-2.4); PHOSPHOROUS 2.7 mg/dL (2.5-4.9); POTASSIUM - SERUM 3.4 mmol/L (3.5-5.1); PROTEIN - SERUM 5.4 g/dL (6.4-8.2); SODIUM 135 mmol/L (136-145); UREA NITROGEN 13 mg/dL (7-18); eGFR NON AFRICAN AMERICAN > 90 mL/min (90-120)
--- NOTE | 2019-04-20 08:22 | NUR ---
NUTRITION F/U CHART AND LABS REVIEWED. TPN ADJUSTED AND RENEWED. WILL CONTINUE TO MONITOR AND ADJUST NEEDED. RD FOLLOWING
[2019-04-20 09:52] LABS: APTT 40.6 SECONDS (22.8-39.4); INR 1.41 (0.85-1.17); PROTIME 16.7 SECONDS (11.6-15.0)
--- NOTE | 2019-04-20 10:02 | NUR ---
0700 BED SIDE SHIFT REPORT COMPLETE VSS. ASSESSMENT DONE SEE FLOW SHEET. 0900 MEDS GIVEN PER MAR. VSS. 1000 DR CISNEROS UPDATED ON PT STATUS. WILL CONTINUE TO MONITOR.
--- NOTE | 2019-04-20 12:07 | NUR ---
PT ON AC VENT SETTING AT THIS TIME. NO SIGNS OF ACUTE DISTRESS NOTED.
--- NOTE | 2019-04-20 13:00 | NUR ---
PT RESTING IN BED COMFOTABLY. VSS. WILL CONTINUE TO MONITOR.
--- NOTE | 2019-04-20 15:00 | NUR ---
REASSESSMENT DONE SEE FLOW SHEET VSS.
--- NOTE | 2019-04-20 17:00 | NUR ---
L UPPER ARM PICC DRESSING CHANGED. PT CONTINUALLY AGGITATED. FENTANYL TITRATED TO AFFECT WILL CONTINUE TO MONITOR.
--- NOTE | 2019-04-20 19:00 | NUR ---
REPORT RECEIVED. RECEIVED PATIENT IN BED SEDATED/INTUBATED. ETT INTACT/SECURE/PATENT AND [facility] WITH SETTING ORDERED. HOB UP 30 DEGREES. NGT INTACT/SECURE/PATENT CONNECTED TO LIT SUCTION. ORAL CARE GIVEN. TURNED AND POSITIONED FOR COMFORT. ASSESSMENT COMPLETED PER FLOW SHEET WITH NO ACUTE DISTRESS OBSERVED. MONITORS CONNECTED TO PATIENT WITH ALARMS SET. VSS.
--- NOTE | 2019-04-20 21:00 | NUR ---
ORAL CARE GIVEN. TURNED AND POSITIONED FOR COMFORT. VSS.
--- NOTE | 2019-04-20 23:00 | NUR ---
REASSESSEMENT COMPLETED PER FLOW SHEET WITH NO ACUTE DISTRESS OBSERVED. VSS. HOB UP 30 DEGREES. ORAL CARE GIVEN. TURNED AND POSITIONED FOR COMFORT. CONT CURRENT POC
[2019-04-21] VITALS (60 sets, daily range): BP systolic 89–137; BP diastolic 47–99
--- NOTE | 2019-04-21 01:00 | NUR ---
ORAL CARE GIVEN. TURNED AND POSITIONED FOR COMFORT. VSS. NO DISTRESS OBSERVED
--- NOTE | 2019-04-21 03:00 | NUR ---
REASSESSMENT COMPLETED PER FLOW SHEET WITH NO ACUTE DISTRESS OBSERVED. VSS.
[2019-04-21 04:36] LABS: BASOPHILS 0.1 % (0-2); EOSINOPHILS 0.7 % (0-7); HEMATOCRIT 32.1 % (42.0-54.0); HEMOGLOBIN 10.3 g/dL (13.5-17.5); IMMATURE GRANULOCYTES 0.8 % (0-5); LYMPHOCYTES 7.4 % (15-50); MCH 28.2 pg (26.0-34.0); MCHC 32.1 g/dL (31.0-37.0); MCV 87.9 fL (80.0-100.0); MEAN PLATELET VOLUME 9.9 fL (7.4-10.4); MONOCYTES 10.2 % (2-11); NEUTROPHILS 80.8 % (40-80); PLATELET COUNT 193 10x3/uL (130-400); RBC 3.65 10x6/uL (4.20-6.10); RDW 14.9 % (11.5-14.5); WBC 8.5 10x3/uL (4.8-10.8)
--- NOTE | 2019-04-21 05:00 | NUR ---
ORAL CARE GIVEN. TURNED AND POSITIONED FOR COMFORT. VSS. NO DISTRESS OBSERVED
[2019-04-21 05:05] LABS: CALC OSMOLALITY 274 mosm/kg (275-300); CALCIUM 7.8 mg/dL (8.5-10.1); CARBON DIOXIDE 29.9 mmol/L (21.0-32.0); CHLORIDE - SERUM 105 mmol/L (98-107); CREATININE - SERUM 0.7 mg/dL (0.6-1.3); GLUCOSE 125 mg/dL (74-106); PHOSPHOROUS 2.4 mg/dL (2.5-4.9); POTASSIUM - SERUM 3.7 mmol/L (3.5-5.1); SODIUM 137 mmol/L (136-145); UREA NITROGEN 13 mg/dL (7-18); eGFR NON AFRICAN AMERICAN > 90 mL/min (90-120)
--- NOTE | 2019-04-21 07:00 | NUR ---
ASSESSMENT DONE SEE FLOW SHEET VSS. WILL CONTINUE TO MONITOR.
--- NOTE | 2019-04-21 08:18 | NUR ---
NUTRITION F/U CHART AND LABS REVIEWED. TPN ADJUSTED AND RENEWED. WILL CONTINUE TO MONITOR LABS AND ADJUST TPN APPROPRIATE. RD FOLLOWING
--- NOTE | 2019-04-21 08:58 | NUR ---
0830 RT AT BEDSIDE PT BEGINING CPAP AT THIS TIME. 0859 MEDS GIVEN PER JUL. VSS.
--- NOTE | 2019-04-21 11:31 | NUR ---
DR MCMULLEN AT BEDSIDE. BLOOD GAS REVIEWED. ORDER FOR MINIMAL SEDATION GIVEN. WILL CONTINUE TO MONITOR.
--- NOTE | 2019-04-21 12:53 | NUR ---
PT CONTINUALLY AGGITATED AND PULING AT LINES. FENTANYL TITRATED FOR AFFECT.
--- NOTE | 2019-04-21 13:39 | NUR ---
FAMILY CALLED VANESSA NOGUEIRA GIVEN UPDATE REQUESTED THAT VISITATION BE LIMITED TO GRAND DAUGHTER Chas UNTIL AFTER CPAP. FAMILY AT BEDSIDE ASKED TO REMAIN IN WAITING ROOM UNTIL AFTER CPAP. FAMILY BROUGHT INTO WAITING AREA. EXPLAINED VISITING SCHEDULE STATUS WITH LUIS LITTLE TO WITNESS. IMPORTANCE PLACED ON KEEPING PT CALM DURING THIS TIME. FAMILY STATED UNDERSTANDING. WILL CONTINUE WITH POC.
--- NOTE | 2019-04-21 15:47 | NUR ---
CPAP TRIAL ENDED PT INCREASINGLY AGGITATED. FENTANYL TITRATED TO AFFECT WILL CONTINUE TO MONITOR.
--- NOTE | 2019-04-21 16:56 | NUR ---
FAMILY UPDATED ON PT STATUS. VSS. WILL CONTINUE TO MONITOR.
--- NOTE | 2019-04-21 19:00 | NUR ---
PT ASSESSMENT COMPLETED AT THIS TIME, NO CHANGES NOTED FROM NURSE REPORT, PT REMAINS ON VENT SUPPORT, PT AWAKES TO LIGHT STIMULATION AND IS NOTED PULLING AT BLANKET AND RESTRAINTS, J/P DRAIN WAS NOTED TO PT PULLED AWAY FROM BODY WITH DRESSING PARTLY REOMVED, DRESSING WAS RESUCURED AT THIS TIME, PT GIVEN ADDITONAL BOLUS OF SEDATION PER ORDERS, NO DISTRESS NOTED AT THIS TIME
--- NOTE | 2019-04-21 21:00 | NUR ---
PT GIVEN MEDS PER NGT, ORAL CARE GIVEN AT THIS TIME, VSS, WILL CONT TO MONITOR
--- NOTE | 2019-04-21 23:00 | NUR ---
PT REASSESSMENT COMPLETED AT THIS TIME, NO CHANGES NOTED, VSS, WILL CONT TO MONITOR
[2019-04-22] VITALS (45 sets, daily range): BP systolic 98–145; BP diastolic 44–92
--- NOTE | 2019-04-22 01:00 | NUR ---
PT RESTING ON THE VENT, NO CHANGES NOTED, PT MORE CALM AT THIS TIME, VSS, WILL CONT TO MONITOR
--- NOTE | 2019-04-22 03:00 | NUR ---
PT REASSESSMENT COMPLETED AT THIS TIME, NO CHANGES NOTED, PT REMAINS ON VENT SUPPORT SEDATION IS 3, VSS, TITRATING CARDIZEM AND DOP DOWN DUE TO DECREASED HR AND INCREASED B/P, WILL CONT TO MONITOR PATIENT FOR CHANGES
[2019-04-22 05:08] LABS: BASOPHILS 0.1 % (0-2); EOSINOPHILS 1.3 % (0-7); HEMATOCRIT 30.9 % (42.0-54.0); HEMOGLOBIN 9.8 g/dL (13.5-17.5); IMMATURE GRANULOCYTES 1.4 % (0-5); LYMPHOCYTES 8.4 % (15-50); MCH 28.3 pg (26.0-34.0); MCHC 31.7 g/dL (31.0-37.0); MCV 89.3 fL (80.0-100.0); MEAN PLATELET VOLUME 9.3 fL (7.4-10.4); MONOCYTES 12.6 % (2-11); NEUTROPHILS 76.2 % (40-80); PLATELET COUNT 185 10x3/uL (130-400); RBC 3.46 10x6/uL (4.20-6.10); RDW 15.3 % (11.5-14.5)
--- NOTE | 2019-04-22 05:38 | NUR ---
PT GIVEN CHG BATH AT THIS TIME, VSS, NO DISTRESS NOTED, WILL CONT TO MONITOR FOR CHANGES
[2019-04-22 05:39] LABS: CALC OSMOLALITY 280 mosm/kg (275-300); CALCIUM 7.8 mg/dL (8.5-10.1); CARBON DIOXIDE 28.7 mmol/L (21.0-32.0); CHLORIDE - SERUM 108 mmol/L (98-107); CREATININE - SERUM 0.7 mg/dL (0.6-1.3); GLUCOSE 123 mg/dL (74-106); MAGNESIUM - SERUM 2.1 mg/dL (1.8-2.4); POTASSIUM - SERUM 3.6 mmol/L (3.5-5.1); SODIUM 141 mmol/L (136-145); UREA NITROGEN 10 mg/dL (7-18); eGFR NON AFRICAN AMERICAN > 90 mL/min (90-120)
--- NOTE | 2019-04-22 07:46 | NUR ---
0700 REPORT RECEIVED CARE ASSUMED ASSESSMENT DONE SEE FLOW SHEET. 729 SEDATION VACATION GIVEN CPAP TRIAL BEGINING. RT AT BEDSIDE.
--- NOTE | 2019-04-22 08:01 | NUR ---
NUTRITION F/U CHART AND LABS REVIEWED. WILL CONTINUE CURRENT TPN REGIMEN. BMP, MAG, PHOS ADDED TO AM LABS. RD FOLLOWING
--- NOTE | 2019-04-22 09:00 | NUR ---
MEDS GIVEN PER MAR. VSS. IV TUBING CHANGED. WILL CONTINUE POC.
--- NOTE | 2019-04-22 10:36 | NUR ---
[address] OF PVCS. DR JACKSON PAGED. QUICKLY RESOLVED. VSS. WILL CONTINUE TO MONITOR. HR 62.
--- NOTE | 2019-04-22 10:58 | NUR ---
REASSESSMENT DONE SEE FLOW SHEET VSS
--- NOTE | 2019-04-22 11:23 | NUR ---
RT AT BEDSIDE PT EXTUBATED AND PLACED ON NC 5LPM. DR MCMULLEN AT BEDSIDE. FENTANYL STOPPED. DOPAMINE STOPPED PER DR MCMULLEN. VSS. WILL CONTINUE TO MONITOR.
--- NOTE | 2019-04-22 11:59 | NUR ---
PT INCREASINGLY AGGITATED. PULLED OUT L JOSE MARSHALL. PT IN RESTRAINTS. FAMILY AT BEDSIDE. WILL CONTINUE TO MONITOR.
--- NOTE | 2019-04-22 12:06 | NUR ---
DR JACKSON AT BEDSIDE ORDER TO STOP THE CARDIZEM.
--- NOTE | 2019-04-22 12:40 | NUR ---
DR CISNEROS UPDATED ON PT STATUS.
--- NOTE | 2019-04-22 13:50 | NUR ---
AGUERO CATHETER DC'D PER DR. LEO'S ORDERS.
[2019-04-22 13:55] LABS: BASOPHILS 0.2 % (0-2); EOSINOPHILS 0.6 % (0-7); HEMOGLOBIN 9.7 g/dL (13.5-17.5); IMMATURE GRANULOCYTES 1.1 % (0-5); LYMPHOCYTES 7.1 % (15-50); MCH 28.1 pg (26.0-34.0); MCHC 31.3 g/dL (31.0-37.0); MCV 89.9 fL (80.0-100.0); MEAN PLATELET VOLUME 9.3 fL (7.4-10.4); MONOCYTES 10.6 % (2-11); NEUTROPHILS 80.4 % (40-80); PLATELET COUNT 207 10x3/uL (130-400); RBC 3.45 10x6/uL (4.20-6.10); RDW 15.2 % (11.5-14.5); WBC 11.2 10x3/uL (4.8-10.8)
--- NOTE | 2019-04-22 14:33 | NUR ---
DR JACKSON NOTIFIED OF PT STATUS ORDERS RECEIVED WILL CONTINUE TO MONITOR.
--- NOTE | 2019-04-22 15:03 | NUR ---
REASSESSMENT DONE SEE FLOW SHEET. PT CONFUSED AND IRRITATED. PT STATES HE IS ON A PLANE AGGRESSIVE WITH STAFF AND PULLING AT LINES.
--- NOTE | 2019-04-22 15:09 | NUR ---
DR JACKSON INFORMED OF PT STATUS ORDERS RECEIVED WILL CONTINUE TO MONITOR.
--- NOTE | 2019-04-22 17:15 | NUR ---
NC TITRATED TO 2LPM. O2 SAT 95%. VSS WILL CONTINUE TO MONITOR.
[2019-04-22 17:17] LABS: HEMATOCRIT 29.4 % (42.0-54.0); HEMOGLOBIN 9.1 g/dL (13.5-17.5)
--- NOTE | 2019-04-22 19:00 | NUR ---
PT ASSESSMENT COMPLETED AT THIS TIME, NO CHANGES FROM NURSE REPORT, VSS, PT VERY CONFUSED, YELLING OUT AND KICKING AND TRYING TO GRAB STAFF. RESTRAINTS INPLACE, VSS, WILL MONITOR PAITNET 1:1 UNTIL PT IS MORE CALM
--- NOTE | 2019-04-22 21:00 | NUR ---
FAMILY AT BEDSIDE, PT MORE CALM, BUT STILL VERY CONFUSED, PT LESS AGITATED. VSS WILL MOINTOR FOR CHANGES
[2019-04-22 21:26] LABS: HEMATOCRIT 28.9 % (42.0-54.0); HEMOGLOBIN 9.1 g/dL (13.5-17.5)
--- NOTE | 2019-04-22 23:00 | NUR ---
PT REASSESSMENT DONE AT THIS TIME, PT IS MORE ALERT AND FOLLOWING COMMANDS, PT IS STILL CONFUSED BUT LESS AGITATED, PT MOANING AND ASKING TO TURN OVER, PT WAS ASSISTED WITH REPOSITION, VSS, WILL MONITOR FOR CHANGES
--- NOTE | 2019-04-22 23:30 | NUR ---
DR. MEDINA CALLED ABOUT PATIENT COMPLIANING OF PAIN AND NOT ABLE TO GET COMFORTABLE, NEW ORDERS NOTED FOR PRN PAIN MEDICINE
[2019-04-23] VITALS (26 sets, daily range): BP systolic 83–123; BP diastolic 48–76
--- NOTE | 2019-04-23 01:00 | NUR ---
PT RESTING WITH EYES CLOSED, VSS, NO DISTRESS NOTED, WILL MONITOR FOR CHANGES
[2019-04-23 01:36] LABS: HEMATOCRIT 29.6 % (42.0-54.0); HEMOGLOBIN 9.4 g/dL (13.5-17.5)
--- NOTE | 2019-04-23 02:45 | NUR ---
PT REASSESSMENT COMPLETED AT THIS TIME, NO CHANGES FROM PREVIOUS, VSS, PT GIVEN CHG BATH WITH LINEN CHANGED, PT NANCY WELL
--- NOTE | 2019-04-23 05:00 | NUR ---
PT RESTING CALMLY AT THSI TIME, RESP EVEN NONLABORED, NO DISTRES NOTED, VSS, WILL CONT TO MONITOR
[2019-04-23 05:27] LABS: BASOPHILS 0.2 % (0-2); EOSINOPHILS 0.3 % (0-7); HEMATOCRIT 29.6 % (42.0-54.0); HEMOGLOBIN 9.2 g/dL (13.5-17.5); IMMATURE GRANULOCYTES 1.1 % (0-5); LYMPHOCYTES 4.4 % (15-50); MCHC 31.1 g/dL (31.0-37.0); MCV 90.2 fL (80.0-100.0); MEAN PLATELET VOLUME 9.1 fL (7.4-10.4); MONOCYTES 9.5 % (2-11); NEUTROPHILS 84.5 % (40-80); PLATELET COUNT 210 10x3/uL (130-400); RBC 3.28 10x6/uL (4.20-6.10); RDW 15.7 % (11.5-14.5); WBC 11.2 10x3/uL (4.8-10.8)
[2019-04-23 05:49] LABS: ALBUMIN 1.5 g/dL (3.4-5.0); ALKALINE PHOSPHATASE 72 U/L (46-116); ALT (SGPT) 24 U/L (10-68); BILIRUBIN - TOTAL 0.67 mg/dL (0.2-1.3); CALC OSMOLALITY 280 mosm/kg (275-300); CALCIUM 7.8 mg/dL (8.5-10.1); CARBON DIOXIDE 27.3 mmol/L (21.0-32.0); CHLORIDE - SERUM 107 mmol/L (98-107); CREATININE - SERUM 0.8 mg/dL (0.6-1.3); GLUCOSE 146 mg/dL (74-106); MAGNESIUM - SERUM 2.1 mg/dL (1.8-2.4); PHOSPHOROUS 2.8 mg/dL (2.5-4.9); POTASSIUM - SERUM 3.9 mmol/L (3.5-5.1); PROTEIN - SERUM 5.5 g/dL (6.4-8.2); SODIUM 139 mmol/L (136-145); eGFR NON AFRICAN AMERICAN > 90 mL/min (90-120)
[2019-04-23 06:07] LABS: UREA NITROGEN 13 mg/dL (7-18)
--- NOTE | 2019-04-23 07:00 | NUR ---
REPORT RECEIVED CARE ASSUMED. ASSESSMENT DONE SEE FLOW SHEET. PT CONFUSED AND AGGITATED. CONTINUALLY PULILNG AT LINES AND DRESSINGS. VSS. WILL CONTINUE TO MONITOR.
[2019-04-23 09:08] LABS: HEMATOCRIT 32.7 % (42.0-54.0); HEMOGLOBIN 10.4 g/dL (13.5-17.5)
--- NOTE | 2019-04-23 10:16 | NUR ---
DR JACKSON IFORMED OF PT STATUS. ORDERS RECEIVED WILL CONTINUE TO MONITOR.
--- NOTE | 2019-04-23 10:17 | NUR ---
NUTRITION F/U LABS REVIEWED. SPOKE WITH NURSING ~ CURRENT TPN RATE. WILL CONTINUE CURRENT TPN AND LIPID REGIMEN FOR NOW. INCREASE TPN RATE WHEN MEDICALLY FEASIBLE. ADDED CMP, MAG, PHOS TO AM LABS X [address] FOLLOWING
[2019-04-23 10:26] LABS: MAGNESIUM - SERUM 1.9 mg/dL (1.8-2.4); POTASSIUM - SERUM 3.7 mmol/L (3.5-5.1)
--- NOTE | 2019-04-23 10:40 | NUR ---
MEDS GIVEN PER MAR IMMEDIATELY CONVERTED.
--- NOTE | 2019-04-23 11:00 | NUR ---
REASSESSMENT DONE SEE FLOW SHEET.
--- NOTE | 2019-04-23 12:38 | NUR ---
1134 RHYTHM CHANGE NOTED ON MONITOR. PT SITING UP IN BED VOMITING. FAMILY AT BEDSIDE EXTERNAL PACER PADS APPLIED. DR JACKSON INFORMED OF PT STATUS. EKG OBTAINED. WILL CONTINUE TO MONITOR.
[2019-04-23 12:42] LABS: MAGNESIUM - SERUM 2.1 mg/dL (1.8-2.4); POTASSIUM - SERUM 3.6 mmol/L (3.5-5.1)
[2019-04-23 13:49] LABS: HEMATOCRIT 32.5 % (42.0-54.0); HEMOGLOBIN 10.1 g/dL (13.5-17.5)
--- NOTE | 2019-04-23 15:00 | NUR ---
REASSESSMENT DONE SEE FLOW SHEET. INCREASE IN HR NOTED WILL CONTINUE TO MONTIOR.
--- NOTE | 2019-04-23 15:50 | NUR ---
DR JACKSON INFORMED OF PT STATUS NEW ORDERS RECEIVED.
[2019-04-23 16:40] LABS: HEMATOCRIT 31.2 % (42.0-54.0); HEMOGLOBIN 9.7 g/dL (13.5-17.5)
--- NOTE | 2019-04-23 17:30 | NUR ---
1699 VANESSA NOGUEIRA CALLED VISISTATION CHANGED TO INCLUDE SECURITY CODE FOR VISITORS.
--- NOTE | 2019-04-23 18:23 | NUR ---
DR CISNEROS UPDATED ON PT STATUS. OK BUSPAR, CELEXA, AND PLAVIX. FOR NGT.
--- NOTE | 2019-04-23 19:00 | NUR ---
BEDSIDE REPORT AND SHIFT ASSESSMENT COMPLETE, SEE FLOWSHEET. PT CONFUSED, DISORIENTED TO PLACE, TIME, AND SITUATION. L IJ CVL AND L UPPER ARM PICC LINE PATENT, SEE IV FLOWSHEET. EXTERNAL PACER PADS ATTATCHED TO PT. LLQ ROM DRAIN COMPRESSED, DRESSING CDI. WILL MONITOR.
[2019-04-23 21:52] LABS: HEMATOCRIT 30.5 % (42.0-54.0); HEMOGLOBIN 9.6 g/dL (13.5-17.5)
--- NOTE | 2019-04-23 22:00 | NUR ---
LARGE LIQUID BLOODY BM NOTED, PT CLEANED UP. CHG BATH AND LINEN CHANGE COMPLETE.
--- NOTE | 2019-04-23 23:00 | NUR ---
REASSESSMENT COMPLETE, SEE FLOWSHEET. NO NEW CHANGES NOTED. EXTERNAL PACER PADS STILL PLACED ON PT'S CHEST, CRASH CART AT BEDSIDE. PT SLEEPING, WILL CONTINUE TO MONITOR.
[2019-04-24] VITALS (27 sets, daily range): BP systolic 87–127; BP diastolic 25–75
--- NOTE | 2019-04-24 01:00 | NUR ---
PT RESTING QUIETLY IN BED. NO SIGNS OF ACUTE DISTRESS NOTED. WILL CONTINUE TO MONITOR.
--- NOTE | 2019-04-24 01:50 | NUR ---
PT PULLED LLQ ROM DRAIN OUT, DR BLAYNE NEELY.
--- NOTE | 2019-04-24 02:00 | NUR ---
PT COMBATIVE, KICKING LEGS AT NURSES AND GRABBING NURSES HANDS. ATTEMPTED TO REORIENT.
--- NOTE | 2019-04-24 02:15 | NUR ---
DR CISNEROS PAGED AGAIN.
[2019-04-24 02:39] LABS: HEMATOCRIT 30.1 % (42.0-54.0); HEMOGLOBIN 9.4 g/dL (13.5-17.5)
--- NOTE | 2019-04-24 03:00 | NUR ---
LG LIQUID BLOODY BM. CHG BATH AND LINEN CHANGE COMPLETE. REASSESSMENT COMPLETE, SEE FLOWSHEET.
[2019-04-24 05:19] LABS: HEMATOCRIT 27.6 % (42.0-54.0); HEMOGLOBIN 8.6 g/dL (13.5-17.5)
--- NOTE | 2019-04-24 05:31 | NUR ---
DR. CISNEROS RETURNED PAGE. NOTIFIED OF PT PULLING OUT ROM, HGB 8.6 THIS AM, AND 2 LARGE BLOODY STOOLS. ORDER TO HOLD PLAVIX AND GET SBFT WITH GASTROGRAFFIN IF NOT ALREADY ORDERED FOR TODAY.
[2019-04-24 05:44] LABS: ALBUMIN 1.4 g/dL (3.4-5.0); ALKALINE PHOSPHATASE 71 U/L (46-116); ALT (SGPT) 29 U/L (10-68); BILIRUBIN - TOTAL 0.36 mg/dL (0.2-1.3); CALCIUM 7.1 mg/dL (8.5-10.1); CARBON DIOXIDE 26.6 mmol/L (21.0-32.0); CHLORIDE - SERUM 108 mmol/L (98-107); CREATININE - SERUM 0.9 mg/dL (0.6-1.3); GLUCOSE 158 mg/dL (74-106); POTASSIUM - SERUM 3.8 mmol/L (3.5-5.1); PROTEIN - SERUM 5.4 g/dL (6.4-8.2); SODIUM 139 mmol/L (136-145); eGFR NON AFRICAN AMERICAN 87 mL/min (90-120)
[2019-04-24 05:45] LABS: CALC OSMOLALITY 282 mosm/kg (275-300); PHOSPHOROUS 3.8 mg/dL (2.5-4.9); UREA NITROGEN 18 mg/dL (7-18)
[2019-04-24 10:05] LABS: HEMATOCRIT 29.2 % (42.0-54.0); HEMOGLOBIN 9.1 g/dL (13.5-17.5)
--- NOTE | 2019-04-24 11:36 | NUR ---
0700 ASSESSMENT DONE SEE FLOW. VSS. 0730 BEGINING SMALL BOWEL TEST. 0900 MEDS HELD PER ORDER UNTIL AFTER STUDY. 1100 REASSESSMENT DONE SEEE FLOW SHEET. VSS. 1130 2X BLOOD TINGED BM NOTED WILL CONTINUE TO MONITOR.
--- NOTE | 2019-04-24 15:21 | NUR ---
Nutrition follow-up: Chart reviewed Extubated Remains NPO TPN infusing @ 40 ml/hr with 20% 250 ml intralipids Q 48 hours Will continue current TPN regimen RDN following.
[2019-04-24 15:34] LABS: HEMATOCRIT 30.3 % (42.0-54.0); HEMOGLOBIN 9.3 g/dL (13.5-17.5)
--- NOTE | 2019-04-24 16:54 | NUR ---
IO COLLECTED. VSS INCREASE HR NOTED
[2019-04-24 17:43] LABS: HEMATOCRIT 28.3 % (42.0-54.0); HEMOGLOBIN 8.9 g/dL (13.5-17.5)
--- NOTE | 2019-04-24 22:30 | NUR ---
LARGE BLOODY BM WITH LARGE CLOTS. PT BATHED AND LINENS CHANGED.
[2019-04-24 22:53] LABS: HEMATOCRIT 24.9 % (42.0-54.0); HEMOGLOBIN 7.6 g/dL (13.5-17.5)
--- NOTE | 2019-04-24 23:05 | NUR ---
DR CISNEROS NOTIFIED OF BLOODY BM, INCREASED HR AND DROP IN H&H. ORDER RECIEVED TO HOLD PLAVIX, GIVE 2 UNITS PRBC AND NOTIFY CARDIOLOGY OF INCREASED HEART RATE.
--- NOTE | 2019-04-24 23:20 | NUR ---
DR RING CALLED AND UPDATED ON PT CONDITION. ORDER RECIEVED TO INCREASE AMIODARONE TO 1 MG/MIN.
--- NOTE | 2019-04-24 23:55 | NUR ---
1ST UNIT OF PRBC STARTED.
[2019-04-25] VITALS (30 sets, daily range): BP systolic 85–153; BP diastolic 46–92
--- NOTE | 2019-04-25 00:25 | NUR ---
IST UNIT PRC COMPLETE AND 2ND UNIT STARTED. PT IS LESS CONFUSED AND REPORTS FEELING MUCH BETTER THAN PRIOR TO GETTING PRBC.
--- NOTE | 2019-04-25 02:08 | NUR ---
2ND UNIT PRBC COMPLETE. NO SIGN OF REACTION. PT RESTING QUIETLY.
[2019-04-25 06:58] LABS: ALBUMIN 1.4 g/dL (3.4-5.0); ANION GAP 8.7 mmol/L (8-16); BILIRUBIN - TOTAL 0.42 mg/dL (0.2-1.3); CALCIUM 7.5 mg/dL (8.5-10.1); CARBON DIOXIDE 26.6 mmol/L (21.0-32.0); CREATININE - SERUM 1.1 mg/dL (0.6-1.3); MAGNESIUM - SERUM 2.2 mg/dL (1.8-2.4); PHOSPHOROUS 3.9 mg/dL (2.5-4.9); POTASSIUM - SERUM 4.3 mmol/L (3.5-5.1); PROTEIN - SERUM 5.1 g/dL (6.4-8.2)
--- NOTE | 2019-04-25 07:00 | NUR ---
REPORT RECEIVED CARE ASSUMED ASSESSMENT DONE SEE FLOW SHEET.
[2019-04-25 07:23] LABS: BASOPHILS 0.3 % (0-2); EOSINOPHILS 0 % (0-7); HEMATOCRIT 29.2 % (42.0-54.0); IMMATURE GRANULOCYTES 4.9 % (0-5); LYMPHOCYTES 8.7 % (15-50); MCH 28.7 pg (26.0-34.0); MCHC 32.2 g/dL (31.0-37.0); MCV 89.3 fL (80.0-100.0); MEAN PLATELET VOLUME 9.6 fL (7.4-10.4); MONOCYTES 10.7 % (2-11); NEUTROPHILS 75.4 % (40-80); PLATELET COUNT 220 10x3/uL (130-400); RBC 3.27 10x6/uL (4.20-6.10); RDW 15.1 % (11.5-14.5); WBC 15.3 10x3/uL (4.8-10.8)
[2019-04-25 07:24] LABS: HEMOGLOBIN 9.4 g/dL (13.5-17.5)
--- NOTE | 2019-04-25 07:42 | NUR ---
Nutrition follow-up: Chart reviewed Pt continues with bloody BM's less confused per nursing Labs reviewed; Cl 114 Meds: Lasix Will continue current TPN regimen and follow-up in am
--- NOTE | 2019-04-25 11:13 | NUR ---
DR JACKSON INFORMED OF PT STATUS. ORDER TO TRANSFUSE PRBC RECEIVED. INCREASE HR NOTED WILL CONTINUE TO MONITOR.
--- NOTE | 2019-04-25 13:00 | NUR ---
PT AOX4. PT CONFIRMED MED CODE STATUS. TEACHING ON HOW TO USE YONKER PROVIDED. PT ABLE TO TAKE SIPS OF WATER WITHOUT DIFFICULTY. NGT TO LIS. INCREASE IN HR NOTED. HEMO STABLE. NGT KERRY BLOOD TINGED.
[2019-04-25 13:12] LABS: HEMATOCRIT 31.6 % (42.0-54.0); HEMOGLOBIN 10.2 g/dL (13.5-17.5)
[2019-04-25 14:43] LABS: HEMATOCRIT 32.1 % (42.0-54.0); HEMOGLOBIN 10.3 g/dL (13.5-17.5)
--- NOTE | 2019-04-25 17:00 | NUR ---
IO COLLECTED. VSS WILL CONTINUE TO MONITOR.
[2019-04-25 18:03] LABS: HEMATOCRIT 32.2 % (42.0-54.0); HEMOGLOBIN 10.5 g/dL (13.5-17.5)
--- NOTE | 2019-04-25 18:22 | NUR ---
DR CISNEROS AT BEDSIDE. NGT PULLED. DIET ADVANCED. WILL CONTINUE TO MONITOR.
--- NOTE | 2019-04-25 20:30 | NUR ---
PT IS CONFUSED AND HAVING DIFFICULTY REORIENTING. ATTEMPTING TO GET OOB AND PULLING AT EQUIPMENT. MONITORING CLOSELY,
[2019-04-26] VITALS (53 sets, daily range): BP systolic 43–142; BP diastolic 19–91
--- NOTE | 2019-04-26 | NUR ---
MULTIPLE BLOODY STOOLS. BED CHANGED SEVERAL TIMES. REMAINS CONFUSED.
[2019-04-26 00:27] LABS: HEMATOCRIT 31.4 % (42.0-54.0); HEMOGLOBIN 10.3 g/dL (13.5-17.5)
[2019-04-26 04:01] LABS: BASOPHILS 0.1 % (0-2); EOSINOPHILS 0 % (0-7); HEMATOCRIT 33.4 % (42.0-54.0); HEMOGLOBIN 10.8 g/dL (13.5-17.5); IMMATURE GRANULOCYTES 2.4 % (0-5); LYMPHOCYTES 6.3 % (15-50); MCH 28.7 pg (26.0-34.0); MCHC 32.3 g/dL (31.0-37.0); MCV 88.8 fL (80.0-100.0); MEAN PLATELET VOLUME 9.4 fL (7.4-10.4); MONOCYTES 10.5 % (2-11); NEUTROPHILS 80.7 % (40-80); PLATELET COUNT 218 10x3/uL (130-400); RBC 3.76 10x6/uL (4.20-6.10)
[2019-04-26 04:06] LABS: WBC 19.5 10x3/uL (4.8-10.8)
[2019-04-26 04:25] LABS: ALBUMIN 1.6 g/dL (3.4-5.0); ANION GAP 13.9 mmol/L (8-16); BILIRUBIN - TOTAL 0.57 mg/dL (0.2-1.3); CALCIUM 7.4 mg/dL (8.5-10.1); CARBON DIOXIDE 22.6 mmol/L (21.0-32.0); CREATININE - SERUM 1.2 mg/dL (0.6-1.3); MAGNESIUM - SERUM 1.9 mg/dL (1.8-2.4); PHOSPHOROUS 3.2 mg/dL (2.5-4.9); POTASSIUM - SERUM 4.5 mmol/L (3.5-5.1); PROTEIN - SERUM 5.5 g/dL (6.4-8.2)
--- NOTE | 2019-04-26 05:05 | NUR ---
PROJECTILE VOMITING. GIVEN ZOFRAN PER ORDER. BED LINEN CHANGED AND PT CLEANED UP.
--- NOTE | 2019-04-26 06:20 | NUR ---
9 BLOODY BM'S DURING THIS SHIFT. REMAINS CONFUSED. ATTEMPING TO GET OOB.
--- NOTE | 2019-04-26 07:28 | NUR ---
Nutrition follow-up: Diet advanced to regular puree with thin liquids TPN continues @ 40 ml/hr NGT pulled Labs reviewed; Mg trending down, Cl slightly elevated Will continue current TPN regimen; anticipate TPN will be discontinued soon if pt with good po intake. RDN following.
--- NOTE | 2019-04-26 08:04 | NUR ---
PT CONFUSED. ATTEMPTING TO CLIMB OOB. BED ALARM ON. VSS.
[2019-04-26 08:38] LABS: HEMATOCRIT 31.5 % (42.0-54.0); HEMOGLOBIN 10.1 g/dL (13.5-17.5)
--- NOTE | 2019-04-26 10:52 | NUR ---
PT VOMITED YELLOW SPUTUM. WHEEZING AND SOB. RT NOTIFIED AND DR BROWN CALLED. 14G NGT TO L NARE TO LIS. HIGH FLOW O2 INC BY RT TO 15L. 500CC THIN YELLOW FLUID IN COLLECTION CHAMBER OF NGT.
--- NOTE | 2019-04-26 11:05 | NUR ---
DR MCMULLEN HERE. REPORTED EMESIS. PTS DAUGHTER HERE. DR MCMULLEN HERE AT BS UPDATING DAUGHTER. CXR AND KUB COMPLETE.
--- NOTE | 2019-04-26 12:23 | NUR ---
NS BOLUS STARTED PER DR JACKSON FOR HYPOTENTION. BIPAP PLACED AT 100% FOR TACHYPNEA BY RT.
[2019-04-26 12:48] LABS: HEMATOCRIT 29.1 % (42.0-54.0); HEMOGLOBIN 9.2 g/dL (13.5-17.5)
--- NOTE | 2019-04-26 13:17 | NUR ---
OT NOTE: PT COMPLETED UE PROM WITH CLOSE ATTENTION THAT HEART RATE DID NOT FLUCTUATE. PT REQUIRED TOTAL A WITH POSITIONING IN BED TO DECREASE SKIN BREAKDOWN. PT REQUIRED TOTAL A WITH HAND HYGIENE. AT BEDSIDE RUBBING PTS HEAD. PT STATED TO " GO SIT IN THE CORNER..YOUR MAKING ME NERVOUS." [phone] THANK YOU,MAREK WATERS
--- NOTE | 2019-04-26 13:59 | NUR ---
REPORTED HYPOTENTION TO DR MCMULLEN. LEVOPHED AND ANOTHER IV 500CC BOLUS STARTED. DR CLEVELAND HERE AT BS TALKING TO FAMILY. DR CISNEROS HERE AT BS ALSO TALKING TO FAMILY.
--- NOTE | 2019-04-26 15:20 | NUR ---
PAGED DR JACKSON TO REPORT TROPONIN RESULTS.
[2019-04-26 16:11] LABS: HEMATOCRIT 30.1 % (42.0-54.0); HEMOGLOBIN 9.5 g/dL (13.5-17.5)
--- NOTE | 2019-04-26 16:18 | NUR ---
REPORTED DECREASED B/P AND LEVOPHED AND IVF BOLUS TO DR YANG. HOLD LASIX ORDERED.
--- NOTE | 2019-04-26 17:03 | NUR ---
PT PULLING BIPAP OFF. ATTEMPTED TO PLACE HIGHFLOW AT 15L BUT SPOW DROPS TO 82%. REPORTED TO DR MCMULLEN. ORDERED TO RESTRAIN PRN AND JAC MONTANO.
--- NOTE | 2019-04-26 17:45 | NUR ---
BP 73/32. LEVOPHED TITRATING UPWARD FOR SBO 90. FAMILY AT BS.
--- NOTE | 2019-04-26 18:05 | NUR ---
LEVOPHED AT MAX DOSE. BP NOW 113/31, MAP 52. PAGED DR JACKSON.
[2019-04-26 18:33] LABS: HEMATOCRIT 29.2 % (42.0-54.0); HEMOGLOBIN 9.1 g/dL (13.5-17.5)
--- NOTE | 2019-04-26 19:00 | NUR ---
REPORT RECEIVED. RECEIVED PATIENT IN BED/RESTLESS/CONFUSED. ON BIPAP 100% FI02 RESP LABORED/ TACHYPNEIC. HOB ELEVATED. NGT INTACT/SECURE/PATENT CONNECTED TO LIT SUCTION WITH SMALL AMT GREEN DRAINAGE DRAINING INTO COLLECTION CHAMBER. POSTITIONED IN BED FOR COMFORT. MONITORS CONNECTED TO PATIENT WITH ALARMS SET. PRESSORS TITRATED PER ORDER. SPOUSE AT BEDSIDE, UPDATE GIVEN.
--- NOTE | 2019-04-26 20:30 | NUR ---
DOPAMINE GTT INITIATED FOR BP 85/35. TITRATED PER ORDER.
[2019-04-26 22:41] LABS: HEMATOCRIT 31.8 % (42.0-54.0); HEMOGLOBIN 9.8 g/dL (13.5-17.5)
[2019-04-27] VITALS (9 sets, daily range): BP systolic 56–134; BP diastolic 16–96
--- NOTE | 2019-04-27 01:15 | NUR ---
SPOKE WITH DR. JACKSON UPDATED ON PATIENT CONDITION. WANTS NO NEW PRESSORS ADDED. INSTRUCTED TO SPEAK WITH FAMILY/ ABOUT COMFORT MEASURES WHEN THEY ARRIVE.
--- NOTE | 2019-04-27 01:16 | NUR ---
SPOKE WITH VANESSA PATIENT'S UPDATED ON PATIENTS CONDITION. SAID SHE WILL BE HERE SOON.
--- NOTE | 2019-04-27 01:35 | NUR ---
PATIENTS VANESSA AND FAMILY AT BEDSIDE. DISCUSSED PATIENTS CONDITION AND CODE STATUS. FAMILY ELECTS TO CHANGE PATIENT'S CODE STATUS TO DNR AT THIS TIME AND PROCEED WITH COMFORT MEASURES ONLY, REMOVING GTTS AND BIPAP AFTER MORE FAMILY ARRIVES.
--- NOTE | 2019-04-27 01:45 | NUR ---
PATIENT'S AND FAMILY REQUEST FOR COMFORT MEASURES AT THIS TIME, THAT ALL GTTS BE STOPPED /BIPAP BE REMOVED/ AND NURSING MANAGER FOR COMFORT. MORPHINE 10 MG IVP ADMIN. IV GTTS STOPPED. BIPAP MASK REMOVED.
--- NOTE | 2019-04-27 02:10 | NUR ---
PATIENT ASYSTOLE ON MONITOR. NO PULSE/RESP OBSERVED. FAMILY CONTINUES AT BEDSIDE.
--- NOTE | 2019-04-27 02:27 | NUR ---
DR. BROWN PRISON TEACHER FOR DR. CELIA NEELY
--- NOTE | 2019-04-27 02:27 | NUR ---
Dr. YANG HYDRAMATIC MECHANIC FOR DR. BROWN PAGED AT THIS TIME.
--- NOTE | 2019-04-27 03:04 | NUR ---
[address]ND [address] TO [address] YANG
--- NOTE | 2019-04-27 03:04 | NUR ---
[address]ND [address] TO [address]. BROWN OUTSIDE RIGGER FOR DR. YANG.
--- NOTE | 2019-04-27 03:10 | NUR ---
SPOKE WITH DR. YANG. UPDATED ON PATIENT.
--- NOTE | 2019-04-27 03:35 | NUR ---
TIME OF PRONOUNCED BY DR. BRICENO
--- NOTE | 2019-04-27 04:10 | NUR ---
[facility] NOTIFIED.
--- NOTE | 2019-04-27 05:43 | NUR ---
Patient transported from facility via [facility].
--- NOTE | 2019-04-27 17:27 | MORECARE ---
CASE MANAGEMENT DISCHARGE SUMMARY PATIENT: BRISEIDA NOGUEIRA GORDON UNIT: [id number] ADM DATE: 03/27/19 AGE: 73 : 41 SEX: M ROOM/BED: D[facility] AUTHOR: MARY,DOC PHYSICIAN: REFERRING PHYSICIAN: FARHANA BROWN MD DATE OF SERVICE: 04/27/19 Discharge Plan Patient Name: BRISEIDA NOGUEIRA Facility: [facility]:[place] : 1945 Planned Disposition: Anticipated Discharge Date: Discharge Date: 04/27/2019 Expected LOS: Initial Reviewer: [email or web address] Initial Review Date: 03/31/2019 Generated: 04/27/19 6:26 pm DCP- Discharge Planning Updated by [email or web address]: Nedra Thompson on 03/31/19 10:[address] Patient Name: BRISEIDA NOGUEIRA Admission Status: ER Accout number: [id number] Admission Date: 03-27-2019 : 1945 Admission Diagnosis: Attending: CARLA CLEVELAND Current LOS: 4 Anticipated DC Date: Planned Disposition: Primary Insurance: MEDICARE A & B Discharge Planning Comments: CM MET WITH FAMILY AFTER TALKING WITH ANABEL PEREZ. I SPOKE WITH HIS VANESSA AND OTHER CHILDREN PRESENT. SPOKE WITH THEM ABOUT DC PLANNING/NEEDS. IT EARLY TO TELL AT THIS POINT BUT IS INTERESTED IN HH IF HE IS ABLE AT DISCHARGE. CHOICE LETTER WAS LEFT WITH HER AND SHE WILL LET ME KNOW WHEN SHE DECIDES ON THE COMPANY. IF HE NEEDS O2 OR OTHER DME THE [place] WAS SIGNED FOR [facility] [place]. CM WILL FOLLOW PATIENT NEEDED AND REASSES. Emergency Doctor: Nerda Thompson DCPIA - Discharge Planning Initial Assessment Updated by [email or web address]: Nedra Thompson on 03/31/19 10:58 am * Is the patient Alert and Oriented? No * PCP KEVIN * Pharmacy [facility] [address] * Preadmission Environment Home with Family * ADLs Independent * Equipment None * List name and contact numbers for known caregivers / representatives who currently or will assist patient after discharge: SYLVIA DOMINGUEZ, * Community resources currently utilized None * Additional services required to return to the preadmission environment? Yes * Has this patient been hospitalized within the prior 30 days at any hospital? Yes Last DP export: 03/31/19 10:04 Patient Name: BRISEIDA NOGUEIRA Page [id number] at 1727 All edits/amendments must be made on the electronic document DICTATION DATE: 04/27/191725 CUSTODIAN: KEYSHAWN 04/27/191725 RPT#: [id number] DC DATE:04/27/19 STATUS: DIS IN [facility] [address] [place] [address] END OF REPORT
--- NOTE | 2019-04-29 11:53 | NUR ---
PER CMS PROTOCOL, RESTRAINT REPORT LOGGED INTO DATA BASE.
== END 2019-04-27 05:43 | DRG 163 ==
LOC: D.ER 17:34 → D.M2 21:23 → D.CVICU 21:23
PROVIDERS: Family Medicine; Internal Medicine Cardiovascular Disease; Internal Medicine Gastroenterology; Internal Medicine Interventional Cardiology; Internal Medicine Pulmonary Disease; Surgery; Thoracic Surgery (Cardiothoracic Vascular Surgery); ADMIT Family Medicine; ATTEND Family Medicine
PROC: 0BCK4ZZ Extirpation of Matter from Right Lung, Percutaneous Endoscopic Approach (ICD-10-PCS; principal; 2019-03-29 10:30)
PROC: 5A1955Z Respiratory Ventilation, Greater than 96 Consecutive Hours (ICD-10-PCS; 2019-03-31)
PROC: 0BH17EZ Insertion of Endotracheal Airway into Trachea, Via Natural or Artificial Opening (ICD-10-PCS; 2019-03-31)
PROC: B2111ZZ Fluoroscopy of Multiple Coronary Arteries using Low Osmolar Contrast (ICD-10-PCS; 2019-04-01)
PROC: B2151ZZ Fluoroscopy of Left Heart using Low Osmolar Contrast (ICD-10-PCS; 2019-04-01)
PROC: 4A023N7 Measurement of Cardiac Sampling and Pressure, Left Heart, Percutaneous Approach (ICD-10-PCS; 2019-04-01)
PROC: 02723GZ Dilation of Coronary Artery, Three Arteries with Four or More Intraluminal Devices, Percutaneous Approach (ICD-10-PCS; 2019-04-01 11:30)
PROC: 05HY33Z Insertion of Infusion Device into Upper Vein, Percutaneous Approach (ICD-10-PCS; 2019-04-08)
PROC: 05HY33Z Insertion of Infusion Device into Upper Vein, Percutaneous Approach (ICD-10-PCS; 2019-04-11)
PROC: 0DBN8ZX Excision of Sigmoid Colon, Via Natural or Artificial Opening Endoscopic, Diagnostic (ICD-10-PCS; 2019-04-15)
PROC: 0DTE0ZZ Resection of Large Intestine, Open Approach (ICD-10-PCS; 2019-04-16)
DX: J95.89 Other postprocedural complications and disorders of respiratory system, not elsewhere classified (principal); G93.41 Metabolic encephalopathy; I50.21 Acute systolic (congestive) heart failure; J94.2 Hemothorax; D62 Acute posthemorrhagic anemia; J98.11 Atelectasis; N17.9 Acute kidney failure, unspecified; K92.2 Gastrointestinal hemorrhage, unspecified; J90 Pleural effusion, not elsewhere classified; R57.1 Hypovolemic shock; D64.9 Anemia, unspecified; R91.8 Other nonspecific abnormal finding of lung field; K21.9 Gastro-esophageal reflux disease without esophagitis; R55 Syncope and collapse; R53.81 Other malaise; R05 Cough; I25.10 Atherosclerotic heart disease of native coronary artery without angina pectoris; R91.1 Solitary pulmonary nodule; E87.6 Hypokalemia; Z66 Do not resuscitate